=== PATIENT | male | born 1970 | race Caucasian/White ===

== ENCOUNTER 2023-07-07 00:44 | Day surgery (SDC) | payer OTHER, SELFPAY ==
[2023-06-29 11:00] VITALS: BMI 34.9
[2023-07-07 07:28] VITALS: BP 116/91; PULSE 76; RESP 18; TEMP 36.3; O2SAT 94; BMI 35.4
[2023-07-07] MEDS: LACTATED RINGERS 1,000 ML 150 ML IV CONT (07:31)
--- NOTE | 2023-07-07 08:05 | PM.HPGS ---
History of Present Illness History of Present Illness Consent: Risks, benefits, and alternatives have been discussed and questions answered. Patient agrees to proceed with procedure. Chief complaint: neoplasm screening, dysphagia Narrative: Donnie Haney is a 52 year old male with gerd on omeprazole (also using celebrex), last EGD about 7 years ago. Also was having dysphagia but improved after got dentures. This is first screening colonoscopy. Review of Systems Review of Systems: All systems reviewed & are unremarkable except as noted in HPI and below PMFSH Past Medical History Medical History (Updated 07/07/23 @ 08:09 by Lefty Lopez MD) Bilateral impacted cerumen Colon cancer screening Family history of heart disease Family hx-malignancy Fusion of lumbosacral spine GERD (gastroesophageal reflux disease) Seborrheic dermatitis Family History Family History Mother Acute myocardial infarction Father Family history of cardiovascular disease Other Family history of malignant neoplasm of breast in first degree relative Family history of malignant neoplasm of cervix Social History Social History (Updated 06/24/23 @ 09:24 by Linda Onofre) Smoking status: Never smoker Alcohol intake: current Drinks per week: 2 Substance use: never Substance use type: does not use Living arrangements: other Meds Home Medications and Allergies Home Medications Medication Instructions Recorded Confirmed Type albuterol sulfate 90 mcg/actuation 1 puff inhalation Q4H PRN 06/24/23 07/07/23 History aerosol inhaler Shortness Of Breath celecoxib 100 mg capsule 100 mg PO BID 06/24/23 07/07/23 History escitalopram oxalate 20 mg tablet 20 mg PO DAILY #30 tabs 06/24/23 07/07/23 Rx eszopiclone 1 mg tablet 1 mg PO DAILY 06/24/23 07/07/23 History ezetimibe 10 mg tablet 10 mg PO DAILY 06/24/23 07/07/23 History omeprazole 40 mg capsule,delayed 40 mg PO DAILY 06/24/23 07/07/23 History release tirzepatide (weight loss) 2.5 2.5 mg (0.5 mL) subcut WEEKLY 4 06/30/23 07/07/23 Rx mg/0.5 mL subcutaneous pen weeks #2 mL injector (Zepbound) Allergies Allergy/AdvReac Type Severity Reaction Status Date / Time ibuprofen Allergy Unknown Unknown Verified 07/07/23 07:25 diclofenac Allergy shortness Verified 07/07/23 07:25 of breathe Vital Signs Vital Signs - 24 hr 07/07/23 07:28 Temperature 97.3 F L Pulse Rate 76 Respiratory Rate 18 Blood Pressure 116/91 H Pulse Oximetry 94 Oxygen Delivery Room Air Exam Const: General: comfortable and no acute distress HENMT: Face/Nose/Sinus: Normal nares present Eyes: General: appearance normal, both eyes and all related structures Neck: Neck: no JVD Resp: Auscultation: clear to auscultation bilaterally Cardio: Rate: regular rate Rhythm: regular rhythm GI: Inspection: non-distended GI Palp: Yes Soft to palpation Skin: General skin exam: normal color Neuro: General: gait normal Speech: normal speech Extrem: General: normal to inspection Psych: Mental Status: mental status grossly normal Assessment and Plan Assessment and plan (1) Dysphagia: Qualifiers: Dysphagia type: unspecified Qualified Code(s): R13.10 - Dysphagia, unspecified Code(s): R13.10 - Dysphagia, unspecified Status: Acute (2) GERD (gastroesophageal reflux disease): Code(s): K21.9 - Gastro-esophageal reflux disease without esophagitis Status: Acute Assessment and Plan: egd with bx on ppi (3) Colon cancer screening: Code(s): Z12.11 - Encounter for screening for malignant neoplasm of colon Status: Acute Assessment and Plan: colonoscopy
--- NOTE | 2023-07-07 08:07 | WPDANESEPPF ---
Anes - Initial Pre Proc Eval Procedure: Operation Date: 07/07/23 08:30 Proposed Procedures p Esophagogastroduodenoscopy&Screen Colon - Lefty Lopez MD Date/Time: 07/07/23 08:07 Surgeon: Lefty Lopez MD Pre Op Diagnosis: neoplasm screening, dysphagia Patient Data Age: 52 Gender: M Height: 1.88 m Weight: 125 kg Last Vital Signs Temp 97.3 F L 07/07/23 07:28 Pulse 76 07/07/23 07:28 Resp 18 07/07/23 07:28 BP 116/91 H 07/07/23 07:28 Pulse Ox 94 07/07/23 07:28 O2 Del Method Room Air 07/07/23 07:28 Allergies Allergy/AdvReac Type Severity Reaction Status Date / Time ibuprofen Allergy Unknown Unknown Verified 07/07/23 07:25 diclofenac Allergy shortness Verified 07/07/23 07:25 of breathe Home Medications Medication Instructions Recorded Confirmed Type albuterol sulfate 90 mcg/actuation 1 puff inhalation Q4H PRN 06/24/23 07/07/23 History aerosol inhaler Shortness Of Breath celecoxib 100 mg capsule 100 mg PO BID 06/24/23 07/07/23 History escitalopram oxalate 20 mg tablet 20 mg PO DAILY #30 tabs 06/24/23 07/07/23 Rx eszopiclone 1 mg tablet 1 mg PO DAILY 06/24/23 07/07/23 History ezetimibe 10 mg tablet 10 mg PO DAILY 06/24/23 07/07/23 History omeprazole 40 mg capsule,delayed 40 mg PO DAILY 06/24/23 07/07/23 History release tirzepatide (weight loss) 2.5 2.5 mg (0.5 mL) subcut WEEKLY 4 06/30/23 07/07/23 Rx mg/0.5 mL subcutaneous pen weeks #2 mL injector (Zepbound) Patient hx anesthesia problems: none Family hx anesthesia problems: none Results Review: All pre-operative results and documents have been reviewed as part of the pre-operative evaluation. [facility] Past Medical History Medical History (Updated 06/30/23 @ 11:57 by Deysi Wang APRN) Bilateral impacted cerumen Family history of heart disease Family hx-malignancy Fusion of lumbosacral spine Seborrheic dermatitis Family History Family History Mother Acute myocardial infarction Father Family history of cardiovascular disease Other Family history of malignant neoplasm of breast in first degree relative Family history of malignant neoplasm of cervix Social History Social History (Updated 06/24/23 @ 09:24 by Linda Onofre) Smoking status: Never smoker Alcohol intake: current Drinks per week: 2 Substance use: never Substance use type: does not use Living arrangements: other Anes - Eval Final PreProcedure Day of Procedure 07/07/23 08:07 Patient weight: obese Heart: regular rate and rhythm Lungs: clear to auscultation Airway: Mallampati scale class III Neurological: alert and oriented Last oral intake: >/= 8 hours ASA classification: III Emergent: no Anesthetic plan: proceed Anesthesia type and monitoring: general GIVS and standard monitoring Results Review: All pre-operative results and documents have been reviewed as part of the pre-operative evaluation. Informed Consent: The patient's anesthetic plan and its attendant risks and benefits were discussed with the patient/family/POA. Questions were solicited and answers provided to the satisfaction of the patient/family/POA.
--- NOTE | 2023-07-07 08:15 | SUR.OPER ---
EGD: COLON: Start 824
[2023-07-07 08:37] VITALS: BP 113/74; PULSE 72; RESP 16; O2SAT 94
[2023-07-07 08:47] VITALS: BP 114/76; PULSE 77; RESP 16; O2SAT 94
[2023-07-07 08:57] VITALS: BP 113/78; PULSE 65; RESP 18; O2SAT 96
== END 2023-07-07 09:06 | disposition home or self-care (01) ==
PROVIDERS: PCP Nurse Practitioner Family; Visit Provider Internal Medicine Gastroenterology
PROC: 0DJ08ZZ Inspection of Upper Intestinal Tract, Via Natural or Artificial Opening Endoscopic (ICD-10-PCS; CPT 43235; principal; 2023-07-07 08:30)
DX: Z12.11 Encounter for screening for malignant neoplasm of colon (principal); D12.2 Benign neoplasm of ascending colon; D12.3 Benign neoplasm of transverse colon; D12.5 Benign neoplasm of sigmoid colon; K29.50 Unspecified chronic gastritis without bleeding; B96.81 Helicobacter pylori [H. pylori] as the cause of diseases classified elsewhere; K64.8 Other hemorrhoids; K57.30 Diverticulosis of large intestine without perforation or abscess without bleeding; K44.9 Diaphragmatic hernia without obstruction or gangrene; K21.9 Gastro-esophageal reflux disease without esophagitis; E66.9 Obesity, unspecified; Z68.35 Body mass index [BMI] 35.0-35.9, adult; Z79.51 Long term (current) use of inhaled steroids; Z79.85 Long-term (current) use of injectable non-insulin antidiabetic drugs; Z98.890 Other specified postprocedural states; Z98.1 Arthrodesis status; Z80.3 Family history of malignant neoplasm of breast; Z80.49 Family history of malignant neoplasm of other genital organs; Z82.49 Family history of ischemic heart disease and other diseases of the circulatory system
CPT/HCPCS: 43239; 45380; 45385; 88305; 88342; J2001; J2704; J3010; J7120

== ENCOUNTER 2023-09-28 15:23 | Outpatient (CLI) | payer OTHER, SELFPAY ==
--- NOTE | ~2023-09-28 | CT_ITS ---
Non-contrast CT scan of the Abdomen and Pelvis Clinical indication: GERD Technique: 2.5 mm axial scans were obtained through the abdomen and pelvis without intravenous or or al contrast. Dose reduction technique was used on this scan by utilizing automated exposure control a nd iterative reconstruction technique. The dose-length product (DLP) was 1154.50 mGy-cm. Findings: Images through the lung bases reveal no abnormalities. There is no evidence of renal or ureteral calculi. The kidneys and the ureters are nondilated. Left hepatic lobe cyst noted inferiorly. The spleen, pancreas, gallbladder, and adrenals appear sheldon l. There is no aortic aneurysm. There is no evidence of bowel obstruction. Images through the pelvis were performed. There is no evidence of ascites or lymphadenopathy. Urinary bladder unremarkable. No pelvic mass seen. Prostate gland mildly enlarged. Small fat-containing righ t inguinal hernia noted. Impression: No acute abnormality. Small fat-containing right inguinal hernia. Markedly enlarged prostate gland. Reviewed, dictated and finalized at [facility]. Impression: No acute abnormality. Small fat-containing right inguinal hernia. Markedly enlarged prostate gland.
== END 2023-09-28 15:24 ==
LOC: MICIMG 15:26
PROVIDERS: PCP Nurse Practitioner Family; Visit Provider Surgery
DX: K21.9 Gastro-esophageal reflux disease without esophagitis (principal); K40.90 Unilateral inguinal hernia, without obstruction or gangrene, not specified as recurrent; N40.0 Benign prostatic hyperplasia without lower urinary tract symptoms
CPT/HCPCS: 74176

== ENCOUNTER 2023-10-05 09:01 | Outpatient (CLI) | payer OTHER, SELFPAY ==
--- NOTE | ~2023-10-05 | XR_ITS ---
EXAMINATION: XR UGI w barium swallow DATE: 10/05/2023 09:37 INDICATION: Gastroesophageal reflux disease without esophagitis. TECHNIQUE: The patient drank thick barium, gas-producing crystals, and thin barium. Fluoroscopy of th e esophagus, stomach, and proximal small bowel was performed. Fluoroscopy exposure time was 0.5 minut es. The total number of images was 196. Total dose-area product was 2.935 Gy-cm^2. COMPARISON: CT abdomen and pelvis 09/28/23 FINDINGS: There is no mass or stricture of the esophagus. Esophageal motility is normal. There is a s mall sliding hiatal hernia. The stomach and proximal small bowel show normal folding patterns. IMPRESSION: 1. Small sliding hiatal hernia. Reviewed, dictated and finalized at location A.
== END 2023-10-05 09:02 | disposition home or self-care (01) ==
LOC: ANHIMG 09:04
PROVIDERS: PCP Nurse Practitioner Family; Visit Provider Surgery
DX: K21.9 Gastro-esophageal reflux disease without esophagitis (principal); R13.10 Dysphagia, unspecified; K44.9 Diaphragmatic hernia without obstruction or gangrene
CPT/HCPCS: 74240

== ENCOUNTER 2023-11-10 15:52 | Outpatient (CLI) | payer OTHER, SELFPAY ==
--- NOTE | ~2023-11-10 | XR_ITS ---
Clinical Indication: Gastroesophageal reflux disease PA and lateral views of the chest: Comparison: None Findings: The lungs are clear, without evidence of focal consolidation or pleural effusion. Cardiome diastinal silhouette is within normal limits. Bones and soft tissues are unremarkable. Impression: Normal chest. Reviewed, dictated and finalized at location . Impression: Normal chest.
--- NOTE | 2023-11-10 15:57 | ECG_ITS ---
Test Date: 2023-11-10 15:02:31 Measurements Intervals [place] Rate: 69 P: 36 NC: 164 QRS: 29 QRSD: 114 T: 32 QT: 377 QTc: 404 Interpretive Statements SINUS RHYTHM INTRAVENTRICULAR CONDUCTION DELAY BASELINE ARTIFACT- II, III BORDERLINE ECG No previous ECG available for comparison Electronically Signed On 11-10-2023 16:07:37 CDT by Anand Norman D.O.
[2023-11-10 16:25] LABS: Basophils Absolute Auto 0.1 K/mm3 (0.0-0.1); Basophils Percent Auto 1.3 % (0.2-1.2); Eosinophils Absolute Auto 0.8 K/mm3 (0-0.3); Eosinophils Percent Auto 11.5 % (0-4.4); Hematocrit 46.6 % (42.0-52.0); Hemoglobin 14.6 g/dL (14.0-18.0); Immature Granulocyte Absolute 0.01 K/mm3 (0.00-0.031); Immature Granulocyte Percent A 0.1 % (0-0.5); Lymphocytes Absolute Auto 2.23 K/mm3 (0.9-3.2); Lymphocytes Percent Auto 31.2 % (18.3-44.2); Mean Corpuscular HGB Conc 31.3 g/dl (32-36); Mean Corpuscular Hemoglobin 26.7 pg (26-34); Mean Corpuscular Volume 85.2 fl (80-100); Mean Platelet Volume 11.1 fl (7.4-10.4); Monocytes Absolute Auto 0.7 K/mm3 (0.1-0.6); Monocytes Percent Auto 10.3 % (2.6-8.5); Neutrophils Absolute Auto 3.3 K/mm3 (1.3-6.7); Neutrophils Percent Auto 45.6 % (45.5-73.1); Platelet Count Result 326 k/mm3 (150-375); Red Blood Count 5.47 M/mm3 (4.6-6.20); Red Cell Distribution Width 14.1 % (11.5-14.5); White Blood Count 7.2 K/mm3 (4.5-10.0)
[2023-11-10 16:35] LABS: Anion Gap 9 mmol/L (4-12); Blood Urea Nitrogen 15 mg/dL (9-20); Calcium 9.7 mg/dL (8.4-10.2); Carbon Dioxide 26 mmol/L (22-30); Chloride 95 mmol/L (98-107); Estimated Glomerular Filt Rate > 60; Glucose 87 mg/dL (65-110); Potassium 4.2 mmol/L (3.4-5.0); Sodium 130 mmol/L (137-145)
== END 2023-11-10 15:53 | disposition home or self-care (01) ==
LOC: ANHCARD 15:53
PROVIDERS: PCP Nurse Practitioner Family; Visit Provider Surgery
DX: K21.9 Gastro-esophageal reflux disease without esophagitis (principal); K44.9 Diaphragmatic hernia without obstruction or gangrene
CPT/HCPCS: 36415; 71046; 80048; 85025; 86850; 86900; 86901; 93005

== ENCOUNTER 2024-03-21 15:31 | Outpatient (CLI) | payer OTHER, SELFPAY ==
--- NOTE | ~2024-03-21 | XR_ITS ---
EXAM: XR humerus RT DATE: 03/21/2024 15:45 HISTORY: rt shoulder/humerus pain, lam when side sleeping . COMPARISON: None available. FINDINGS: Normal mineralization. No fracture or dislocation. No lytic or blastic lesion. Joint space s and physes are maintained. No erosion or periosteal change. Soft tissues within normal limits. IMPRESSION: No acute osseous finding in the right humerus. Reviewed, dictated and finalized at location K. CAL ASSISTANT INTERNAL MEDICINE
--- NOTE | ~2024-03-21 | XR_ITS ---
HISTORY: rt shoulder/humerus pain x 1 month, espec when side sleeping COMPARISON: None TECHNIQUE: 3 views of the right shoulder were performed FINDINGS: No acute fracture. The glenohumeral and acromioclavicular joint space is maintained The visualized portion of the adjacent right lung is clear. The humeral head is well seated within the glenoid fossa. IMPRESSION: No acute fracture or anterior dislocation. Reviewed, dictated and finalized at location A. 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
--- OUTSIDE RECORDS SUMMARY | 2024-03-21 16:16 | XMS_ITS | Data Portability ---
Author Organization [place] - [facility], [employer] Address [address] [place] [address] Care Team Providers Care Senior Bioinformatics Specialist Name Role Phone BENEDICT MELLO Office Nurse Assessment Encounter Date Assessment Date Assessment LastModified by Organization Details LastModified Time 04/16/2022 04/16/2022 Medication Changes Zpak as directed Signs and symptoms of when to seek further care reviewed with patient/caregive r/family/facilit y staff. Patient to follow up with primary care provider or return to clinic for any worsening signs and symptoms. Always present to ER or Urgent Care with any progression of/alarming symptoms, significant changes in symptoms or any concerning or urgent matters. Patient/caregive r/family/facilit y staff verbalized agreement and understanding of treatment plan. F/U as directed, sooner if needed My total encounter time was 30 minutes which was spent in the activities documented in the note. This includes time spent prior to the visit, performing a medically appropriate examination with evaluation, and after the visit in direct care of the patient (history and exam; ordering prescriptions/la bs/imaging/home health/therapy/s pecialists; communicating results to patient and/or other relative individuals; counseling/educa ting patient; documenting clinical information in patient? s chart; coordination of care for the patient). This time does not include time spent in any separately reportable services. Not available 04/16/2022 13:08:59 05/19/2022 05/19/2022 Medication Changes Barium swallow study to be done at [facility] in [place]. Contacted [facility] who states order to be sent to Central Sched[facility] and they will call patient to schedule. Signs and symptoms of when to seek further care reviewed with patient/caregive r/family/facilit y staff. Patient to follow up with primary care provider or return to clinic for any worsening signs and symptoms. Always present to ER or Urgent Care with any progression of/alarming symptoms, significant changes in symptoms or any concerning or urgent matters. Patient/caregive r/family/facilit y staff verbalized agreement and understanding of treatment plan. F/U as directed, sooner if needed My total encounter time was 30 minutes which was spent in the activities documented in the note. This includes time spent prior to the visit, performing a medically appropriate examination with evaluation, and after the visit in direct care of the patient (history and exam; ordering prescriptions/la bs/imaging/home health/therapy/s pecialists; communicating results to patient and/or other relative individuals; counseling/educa ting patient; documenting clinical information in patient? s chart; coordination of care for the patient). This time does not include time spent in any separately reportable services. [email or web address] Not available 05/19/2022 18:25:44 08/13/2022 08/13/2022 Medication Changes Dexamethasone 6 mg x 1 IM given at visit Dexamethasone 6 mg orally qD x 5 days labs to eval levels. Signs and symptoms of when to seek further care reviewed with patient/caregive r/family/facilit y staff. Patient to follow up with primary care provider or return to clinic for any worsening signs and symptoms. Always present to ER or Urgent Care with any progression of/alarming symptoms, significant changes in symptoms or any concerning or urgent matters. Patient/caregive r/family/facilit y staff verbalized agreement and understanding of treatment plan. F/U 12 weeks, sooner if needed My total encounter time was 30 minutes which was spent in the activities documented in the note. This includes time spent prior to the visit, performing a medically appropriate examination with evaluation, and after the visit in direct care of the patient (history and exam; ordering prescriptions/la bs/imaging/home health/therapy/s pecialists; communicating results to patient and/or other relative individuals; counseling/educa ting patient; documenting clinical information in patient? s chart; coordination of care for the patient). This time does not include time spent in any separately reportable services. [email or web address] Not available 08/13/2022 14:26:06 12/01/2022 12/01/2022 Medication Changes labs to eval levels Patient to return to office to have labs done Signs and symptoms of when to seek further care reviewed with patient/caregive r/family/facilit y staff. Patient to follow up with primary care provider or return to clinic for any worsening signs and symptoms. Always present to ER or Urgent Care with any progression of/alarming symptoms, significant changes in symptoms or any concerning or urgent matters. Patient/caregive r/family/facilit y staff verbalized agreement and understanding of treatment plan. F/U 12 weeks, sooner if needed My total encounter time was 30 minutes which was spent in the activities documented in the note. This includes time spent prior to the visit, performing a medically appropriate examination with evaluation, and after the visit in direct care of the patient (history and exam; ordering prescriptions/la bs/imaging/home health/therapy/s pecialists; communicating results to patient and/or other relative individuals; counseling/educa ting patient; documenting clinical information in patient? s chart; coordination of care for the patient). This time does not include time spent in any separately reportable services. [email or web address] Not available 12/01/2022 09:21:38 03/31/2023 03/31/2023 Medication Changes labs to eval levels Signs and symptoms of when to seek further care reviewed with patient/caregive r/family/facilit y staff. Patient to follow up with primary care provider or return to clinic for any worsening signs and symptoms. Always present to ER or Urgent Care with any progression of/alarming symptoms, significant changes in symptoms or any concerning or urgent matters. Patient/caregive r/family/facilit y staff verbalized agreement and understanding of treatment plan. F/U 6 months, sooner if needed My total encounter time was 45 minutes which was spent in the activities documented in the note. This includes time spent prior to the visit, performing a medically appropriate examination with evaluation, and after the visit in direct care of the patient (history and exam; ordering prescriptions/la bs/imaging/home health/therapy/s pecialists; communicating results to patient and/or other relative individuals; counseling/educa ting patient; documenting clinical information in patient? s chart; coordination of care for the patient). This time does not include time spent in any separately reportable services. Not available 03/31/2023 21:15:56 Plan of Treatment Reminders Order Date Submit Date Provider Last Modified By Organization Details Last Modified Time Details Appointments None recorded. Lab lipid panel, serum 2022 023 [facility] [place] [facility], [address], [place], [address], 07:05:37 CBC 2022 023 [facility] [place] [facility], [address], [place], [address], 07:05:38 CMP, serum or plasma 2022 023 [facility] [place] [facility], [address], [place], [address], 07:05:38 lipid panel, serum 2022 023 [email or web address] [facility] [place] [facility], [address], [place], [address], 20:36:55 CBC 2022 023 [facility] [place] [facility], [address], [place], [address], 13:25:54 CMP, serum or plasma 2022 023 [facility] [place] [facility], [address], [place], [address], 3 20:36:55 testosteron e, free + total, serum 2023 024 [facility] [place] [facility], [address], [place], [address], 4 17:31:16 PSA, serum or plasma 2023 024 [facility] [place] [facility], [address] [place], [address], 4 12:08:32 lipid panel, serum 2023 024 0 [facility] [place] [facility], [address] [place], [address], 4 12:11:10 CMP, serum or plasma 2023 024 [email or web address] 0 [facility] [place] [facility], [address] [place], [address], 4 12:11:12 CBC 2023 024 [email or web address] 0 [facility], [address] [place], [address], 4 12:31:49 TSH, serum or plasma 2023 024 [facility] [place] [facility], [address] [place], [address], 4 12:08:33 vitamin B12 + folate, serum or blood 2023 024 [facility] [place] [facility], [address] [place], [address], 4 12:08:33 iron, serum 2023 024 [email or web address] 0 [facility] [place] [facility], [address] [place], [address], 4 12:11:11 Referral weight management referral 2022 023 [email or web address] Not available 3 16:18:52 Procedures None recorded. Surgeries None recorded. Imaging barium swallow study 2022 023 [facility] ([facility] Scheduling, [address] [place], [address], 3 13:48:08 Medication Orders Zithromax Z-Rian 250 mg tablet 2022 023 [email or web address] [facility] [id number] [facility], [facility], [place], [address], 3 06:51:01 bupropion HCl 75 mg tablet 2022 023 [place] [address], [place], [address], 4 14:05:24 celecoxib 100 mg capsule [address], [place], [address], 4 12:53:20 ezetimibe 10 mg tablet 2022 023 [place] [address], [place], [address], 4 14:05:46 eszopiclone 1 mg tablet 2022 023 [place] [address], [place], [address], 4 14:05:40 escitalopra m 10 mg tablet 2022 023 [place] [address], [place], [address], 4 14:05:34 dexamethaso ne 6 mg tablet 2022 023 [place] [address], [place], [address], 3 09:55:33 bupropion HCl 75 mg tablet [address], [facility] [address], [place], [address], 4 14:05:24 celecoxib 100 mg capsule 2022 023 [place] [address], [place], [address], 4 12:53:20 eszopiclone 1 mg tablet [address], [facility] [address], [place], [address], 4 14:05:40 ezetimibe 10 mg tablet [address], [facility] [address], [place], [address], 4 14:05:46 escitalopra m 10 mg tablet [address], [facility] [address], [place], [address], 4 14:05:34 bupropion HCl 75 mg tablet 2023 024 [facility], [address], [place], [address], 4 09:09:34 celecoxib 100 mg capsule [address], [address], [place], [address], 4 12:53:20 omeprazole 40 mg capsule,del ayed release 2023 024 [place] [address], [place], [address], 4 09:09:56 ezetimibe 10 mg tablet 2023 024 [place] [address], [place], [address], 4 09:09:54 eszopiclone 1 mg tablet 2023 024 [place] [address], [place], [address], 4 09:09:52 escitalopra m 10 mg tablet 2023 024 [place] [address], [place], [address], 4 09:09:31 Patient TargetsNo targets recorded. Patient Instructions Encounter Date Encounter Id Patient Instructions Last Modified By Organization Details Last Modified Time 04/16/2022 [id number] Acute Sinusitis: Care Instructions [email or web address] Not available 04/16/2022 13:09:41 weight managemen t education [email or web address] Not available 04/16/2022 13:04:51 Reason for Referral Weight Management Referral f or Body mass index 30+ - obesity Referring Physician: Aria Hauser, Internal Medicine, Encounter Date: 04/16/2022 Results Created Date Observation Date Name Description Value Unit Range Abnormal Flag Note LastModifiedBy Organization Detail LastModifiedTime 03/25/1903/26/2022 LIPID PANEL , [place] cholesterol, total 248 mg/dL <200 high Not Available [facility] [address] [place], [address], 03/26/2022 13:30:37 03/25/19 23 03/26/2022 LIPID PANEL , [place] HDL cholesterol 52 mg/dL > or = 40 normal Not Available [facility] [address] [place], [address], 03/26/2022 13:30:37 03/25/19 23 03/26/2022 LIPID PANEL , [place] triglyceride s 228 mg/dL <150 high If a non-f astin g speci men was colle cted, consi darío repea t trigl yceri de testi ng on a fasti ng speci men if clini pito indic ated. [place] et al. J. of Clin. Lipid ol. 2015; 9:129 -169. Not Available [facility] [address], [place], [address], 03/26/2022 13:30:37 03/25/19 23 03/26/2022 LIPID PANEL , [place] LDL-choleste rol 157 mg/dL _(shelia c) high Refer ence range : <100 Jillian able range <100 mg/dL for prima ry preve ntion ; <70 mg/dL for patie nts with CHD or diabe tic patie nts with > or = 2 CHD risk facto rs. LDL-C is now calcu lated using the Wilda n-Hop kins rolandu cheri n, which is a valid ated novel kartik campos r accur acy than the Fried lori equat ion in the estim ation of LDL-C . Wilda baum SS et al. DAVID. 2013; 310(1 9): 2061- 2068 (http ://ed ucati on.Qu William fish tics. com/f aq/FA Q164) Not Available [facility] [address] [place], [address], 03/26/2022 13:30:37 03/25/19 23 03/26/2022 LIPID PANEL , [place] chol/HDLC ratio 4.8 (calc ) <5.0 normal Not Available [facility] [address] [place], [address], 03/26/2022 13:30:37 03/25/19 23 03/26/2022 LIPID PANEL , [place] non HDL cholesterol 196 mg/dL _(shelia c) <130 high For patie nts with diabe adrián plus 1 major ASCVD risk facto r, treat ing to a non-H DL-C goal of <100 mg/dL (LDL- C of <70 mg/dL ) is consi bald a thera peuti c optio n. Not Available [place] [address] [place], [address], 03/26/2022 13:30:37 03/25/19 23 03/26/2022 COMPR EHENS RAUL METAB OLIC PANEL glucose 91 mg/dL 65-99 normal Fasti ng refer ence inter kyara Not Available [address] [place], [address], 03/26/2022 13:30:38 03/25/19 23 03/26/2022 COMPR EHENS RAUL METAB OLIC PANEL urea nitrogen (BUN) 20 mg/dL 7-25 normal Not Available [facility] [place] [address] [place], [address], 03/26/2022 13:30:38 03/25/19 23 03/26/2022 COMPR EHENS RAUL METAB OLIC PANEL creatinine 1.16 mg/dL 0.70-1 .30 normal Not Available [address], [address], 03/26/2022 13:30:38 03/25/19 23 03/26/2022 COMPR EHENS RAUL METAB OLIC PANEL eGFR 75 mL/mi n/1.7 3m2 > or = 60 normal The eGFR is based on the CKD-E PI 2020 cecilio gilbert. To calcu late the new eGFR from a previ ous Creat inine or Cysta lynsey C resul t, go to https ://thad georges.hernandez avilez/yemi marroquin s/ kdoqi /gfr% 5Fcal culat or Not Available [address] [place], [address], 03/26/2022 13:30:38 03/25/19 23 03/26/2022 COMPR EHENS RAUL METAB OLIC PANEL BUN/creatini ne ratio NOT APPLIC ABLE (calc ) 6-22 Not Available [address], [address], 03/26/2022 13:30:38 03/25/19 23 03/26/2022 COMPR EHENS RAUL METAB OLIC PANEL sodium 140 mmol/ L 135-14 6 normal Not Available [address], [address], 03/26/2022 13:30:38 03/25/19 23 03/26/2022 COMPR EHENS RAUL METAB OLIC PANEL potassium 4.5 mmol/ L 3.5-5. 3 normal Not Available [address], [address], 03/26/2022 13:30:38 03/25/19 23 03/26/2022 COMPR EHENS RAUL METAB OLIC PANEL chloride 105 mmol/ L 98-110 normal Not Available [address], [address], 03/26/2022 13:30:38 03/25/19 23 03/26/2022 COMPR EHENS RAUL METAB OLIC PANEL carbon dioxide 27 mmol/ L 20-32 normal Not Available [address], [address], 03/26/2022 13:30:38 03/25/19 23 03/26/2022 COMPR EHENS RAUL METAB OLIC PANEL calcium 9.9 mg/dL 8.6-10 .3 normal Not Available [address], [address], 03/26/2022 13:30:38 03/25/19 23 03/26/2022 COMPR EHENS RAUL METAB OLIC PANEL protein, total 7.0 g/dL 6.1-8. 1 normal Not Available [address], [address], 03/26/2022 13:30:38 03/25/19 23 03/26/2022 COMPR EHENS RAUL METAB OLIC PANEL albumin 4.6 g/dL 3.6-5. 1 normal Not Available [address], [address], 03/26/2022 13:30:38 03/25/19 23 03/26/2022 COMPR EHENS RAUL METAB OLIC PANEL globulin 2.4 g/dL_ (calc ) 1.9-3. 7 normal Not Available [address], [address], 03/26/2022 13:30:38 03/25/19 23 03/26/2022 COMPR EHENS RAUL METAB OLIC PANEL albumin/glob ulin ratio 1.9 (calc ) 1.0-2. 5 normal Not Available [address], [address], 03/26/2022 13:30:38 03/25/19 23 03/26/2022 COMPR EHENS RAUL METAB OLIC PANEL bilirubin, total 0.4 mg/dL 0.2-1. 2 normal Not Available [address], [address], 03/26/2022 13:30:38 03/25/19 23 03/26/2022 COMPR EHENS RAUL METAB OLIC PANEL alkaline phosphatase 51 U/L 35-144 normal Not Available [facility] [employer] [address], [address], 03/26/2022 13:30:38 03/25/19 23 03/26/2022 COMPR EHENS RAUL METAB OLIC PANEL AST 16 U/L 10-35 normal Not Available [address], [address], 03/26/2022 13:30:38 03/25/19 23 03/26/2022 COMPR EHENS RAUL METAB OLIC PANEL ALT 19 U/L 9-46 normal Not Available [address], [address], 03/26/2022 13:30:38 03/25/19 23 03/26/2022 CBC (H/H, RBC, INDIC ES, WBC, PLT) white blood cell count 10.1 thous and/u L 3.8-10 .8 normal Not Available [address], [address], 03/26/2022 08:38:31 03/25/19 23 03/26/2022 CBC (H/H, RBC, INDIC ES, WBC, PLT) red blood cell count 5.21 denise on/uL 4.20-5 .80 normal Not Available [address], [address], 03/26/2022 08:38:31 03/25/19 23 03/26/2022 CBC (H/H, RBC, INDIC ES, WBC, PLT) hemoglobin 14.7 g/dL 13.2-1 7.1 normal Not Available [address], [address], 03/26/2022 08:38:31 03/25/19 23 03/26/2022 CBC (H/H, RBC, INDIC ES, WBC, PLT) hematocrit 45.4 % 38.5-5 0.0 normal Not Available [address], [address], 03/26/2022 08:38:31 03/25/19 23 03/26/2022 CBC (H/H, RBC, INDIC ES, WBC, PLT) MCV 87.1 fL 80.0-1 00.0 normal Not Available [address], [address], 03/26/2022 08:38:31 03/25/1903/26/2022 CBC (H/H, RBC, INDIC ES, WBC, PLT) MCH 28.2 pg 27.0-3 3.0 normal Not Available [address], [address], 03/26/2022 08:38:31 03/25/1903/26/2022 CBC (H/H, RBC, INDIC ES, WBC, PLT) MCHC 32.4 g/dL 32.0-3 6.0 normal Not Available [address], [address], 03/26/2022 08:38:31 03/25/1903/26/2022 CBC (H/H, RBC, INDIC ES, WBC, PLT) RDW 13.5 % 11.0-1 5.0 normal Not Available [address], [address], 03/26/2022 08:38:31 03/25/1903/26/2022 CBC (H/H, RBC, INDIC ES, WBC, PLT) platelet count 317 thous and/u L 140-40 0 normal Not Available [address], [address], 03/26/2022 08:38:31 03/25/19 23 03/26/2022 CBC (H/H, RBC, INDIC ES, WBC, PLT) MPV 11.8 fL 7.5-12 .5 normal Not Available [facility] [address], [address], 03/26/2022 08:38:31 08/14/19 23 08/14/2022 LIPID PANEL , [place] cholesterol, total 235 mg/dL <200 high Not Available [address], [address], 08/14/2022 08:41:07 08/14/19 23 08/14/2022 LIPID PANEL , [place] HDL cholesterol 72 mg/dL > or = [address] [facility] [address] [place] [address], [address], 08/14/2022 08:41:07 08/14/19 23 08/14/2022 LIPID PANEL , [place] triglyceride s 172 mg/dL <150 high Not Available [address], [address], 08/14/2022 08:41:07 08/14/1908/14/2022 LIPID PANEL , [place] LDL-choleste rol 132 mg/dL _(shelia c) high Refer ence range : <100 Jillian able range <100 mg/dL for prima ry preve ntion ; <70 mg/dL for patie nts with CHD or diabe tic patie nts with > or = 2 CHD risk facto rs. LDL-C is now calcu lated using the Wilda n-Hop kins calcu cheri n, which is a valid ated novel kartik acosta accur acy than the Fried lori equat ion in the estim ation of LDL-C . Wilda baum SS et al. DAVID. 2013; 310(1 9): 2061- 2068 (http ://ed ucati on.Erica Thomas [employer] Network[employer]. com/f aq/FA Q164) Not Available [address], [address], 08/14/2022 08:41:07 08/14/19 23 08/14/2022 LIPID PANEL , [place] chol/HDLC ratio 3.3 (calc ) <5.[address] [facility] [address] [place] [address], [address], 08/14/2022 08:41:07 08/14/19 23 08/14/2022 LIPID PANEL , [place] non HDL cholesterol 163 mg/dL _(shelia c) <130 high For patie nts with diabe adrián plus 1 major ASCVD risk facto r, treat ing to a non-H DL-C goal of <100 mg/dL (LDL- C of <70 mg/dL ) is consi dered a thera peuti c optio n. Not Available [place] [address] [place], [address], 08/14/2022 08:41:07 08/14/1908/14/2022 COMPR EHENS RAUL METAB OLIC PANEL glucose 118 mg/dL 65-99 high Fasti ng refer ence inter kyara For someo ne witho ut known diabe adrián, a gluco se value betwe en 100 and 125 mg/dL is consi stent with predi abete s and shoul d be confi rmed with a follo w-up test. Not Available [place] [address] [place], [address], 08/14/2022 08:41:08 08/14/19 23 08/14/2022 COMPR EHENS RAUL METAB OLIC PANEL urea nitrogen (BUN) 22 mg/dL 7-25 normal Not Available [address], [address], 08/14/2022 08:41:08 08/14/1908/14/2022 COMPR EHENS RAUL METAB OLIC PANEL creatinine 1.03 mg/dL 0.70-1 .30 normal Not Available [facility] [address] [address] [place], [address], 08/14/2022 08:41:08 08/14/1908/14/2022 COMPR EHENS RAUL METAB OLIC PANEL eGFR 87 mL/mi n/1.7 3m2 > or = 60 normal The eGFR is based on the CKD-E PI 2020 equat ion. To calcu late the new eGFR from a previ ous Creat inine or Cysta tin C resul t, go to https ://thad georges.hernandez avilez/yemi marroquin s/ kdoqi /gfr% 5Fcal culat or Not Available [address] [place], [address], 08/14/2022 08:41:08 08/14/1908/14/2022 COMPR EHENS RAUL METAB OLIC PANEL BUN/creatini ne ratio NOT APPLIC ABLE (calc ) 6-22 Not Available [address], [address], 08/14/2022 08:41:08 08/14/1908/14/2022 COMPR EHENS RAUL METAB OLIC PANEL sodium 140 mmol/ L 135-14 6 normal Not Available [address], [address], 08/14/2022 08:41:08 08/14/1908/14/2022 COMPR EHENS RAUL METAB OLIC PANEL potassium 4.6 mmol/ L 3.5-5. 3 normal Not Available [address], [address], 08/14/2022 08:41:08 08/14/19 23 08/14/2022 COMPR EHENS RAUL METAB OLIC PANEL chloride 107 mmol/ L 98-110 normal Not Available [address], [address], 08/14/2022 08:41:08 08/14/1908/14/2022 COMPR EHENS RAUL METAB OLIC PANEL carbon dioxide 25 mmol/ L 20-32 normal Not Available [address], [address], 08/14/2022 08:41:08 08/14/1908/14/2022 COMPR EHENS RAUL METAB OLIC PANEL calcium 9.4 mg/dL 8.6-10 .3 normal Not Available [address], [address], 08/14/2022 08:41:08 08/14/1908/14/2022 COMPR EHENS RAUL METAB OLIC PANEL protein, total 6.4 g/dL 6.1-8. 1 normal Not Available [address], [address], 08/14/2022 08:41:08 08/14/1908/14/2022 COMPR EHENS RAUL METAB OLIC PANEL albumin 4.2 g/dL 3.6-5. 1 normal Not Available [address], [address], 08/14/2022 08:41:08 08/14/1908/14/2022 COMPR EHENS RAUL METAB OLIC PANEL globulin 2.2 g/dL_ (calc ) 1.9-3. 7 normal Not Available [address], [address], 08/14/2022 08:41:08 08/14/19 23 08/14/2022 COMPR EHENS RAUL METAB OLIC PANEL albumin/glob ulin ratio 1.9 (calc ) 1.0-2. 5 normal Not Available [address], [address], 08/14/2022 08:41:08 08/14/1908/14/2022 COMPR EHENS RAUL METAB OLIC PANEL bilirubin, total 0.4 mg/dL 0.2-1. 2 normal Not Available [address], [address], 08/14/2022 08:41:08 08/14/1908/14/2022 COMPR EHENS RAUL METAB OLIC PANEL alkaline phosphatase 45 U/L 35-144 normal Not Available [address], [address], 08/14/2022 08:41:08 08/14/1908/14/2022 COMPR EHENS RAUL METAB OLIC PANEL AST 13 U/L 10-35 normal Not Available [address], [address], 08/14/2022 08:41:08 08/14/1908/14/2022 COMPR EHENS RAUL METAB OLIC PANEL ALT 20 U/L 9-46 normal Not Available [address], [address], 08/14/2022 08:41:08 08/14/1908/14/2022 CBC (H/H, RBC, INDIC ES, WBC, PLT) white blood cell count 7.3 thous and/u L 3.8-10 .8 normal Not Available [address], [address], 08/14/2022 07:05:38 08/14/1908/14/2022 CBC (H/H, RBC, INDIC ES, WBC, PLT) red blood cell count 5.23 denise on/uL 4.20-5 .80 normal Not Available [address], [address], 08/14/2022 07:05:38 08/14/1908/14/2022 CBC (H/H, RBC, INDIC ES, WBC, PLT) hemoglobin 14.8 g/dL 13.2-1 7.1 normal Not Available [address], [address], 08/14/2022 07:05:38 08/14/1908/14/2022 CBC (H/H, RBC, INDIC ES, WBC, PLT) hematocrit 46.3 % 38.5-5 0.0 normal Not Available [address], [address], 08/14/2022 07:05:38 08/14/19 23 08/14/2022 CBC (H/H, RBC, INDIC ES, WBC, PLT) MCV 88.5 fL 80.0-1 00.0 normal Not Available [address], [address], 08/14/2022 07:05:38 08/14/19 23 08/14/2022 CBC (H/H, RBC, INDIC ES, WBC, PLT) MCH 28.3 pg 27.0-3 3.0 normal Not Available [address], [address], 08/14/2022 07:05:38 08/14/1908/14/2022 CBC (H/H, RBC, INDIC ES, WBC, PLT) MCHC 32.0 g/dL 32.0-3 6.0 normal Not Available [address], [address], 08/14/2022 07:05:38 08/14/1908/14/2022 CBC (H/H, RBC, INDIC ES, WBC, PLT) RDW 13.2 % 11.0-1 5.0 normal Not Available [address], [address], 08/14/2022 07:05:38 08/14/19 23 08/14/2022 CBC (H/H, RBC, INDIC ES, WBC, PLT) platelet count 328 thous and/u L 140-40 0 normal Not Available [address], [address], 08/14/2022 07:05:38 08/14/1908/14/2022 CBC (H/H, RBC, INDIC ES, WBC, PLT) MPV 10.6 fL 7.5-12 .5 normal Not Available [address], [address], 08/14/2022 07:05:38 12/04/19 23 12/04/2022 CBC (H/H, RBC, INDIC ES, WBC, PLT) white blood cell count 5.9 thous and/u L 3.8-10 .8 normal Not Available [address], [address], 12/04/2022 13:25:54 12/04/1912/04/2022 CBC (H/H, RBC, INDIC ES, WBC, PLT) red blood cell count 4.91 denise on/uL 4.20-5 .80 normal Not Available [address], [address], 12/04/2022 13:25:54 12/04/1912/04/2022 CBC (H/H, RBC, INDIC ES, WBC, PLT) hemoglobin 14.2 g/dL 13.2-1 7.1 normal Not Available [address], [address], 12/04/2022 13:25:54 12/04/1912/04/2022 CBC (H/H, RBC, INDIC ES, WBC, PLT) hematocrit 43.8 % 38.5-5 0.0 normal Not Available [address], [address], 12/04/2022 13:25:54 12/04/1912/04/2022 CBC (H/H, RBC, INDIC ES, WBC, PLT) MCV 89.2 fL 80.0-1 00.0 normal Not Available [address], [address], 12/04/2022 13:25:54 12/04/1912/04/2022 CBC (H/H, RBC, INDIC ES, WBC, PLT) MCH 28.9 pg 27.0-3 3.0 normal Not Available [address], [address], 12/04/2022 13:25:54 12/04/1912/04/2022 CBC (H/H, RBC, INDIC ES, WBC, PLT) MCHC 32.4 g/dL 32.0-3 6.0 normal Not Available [address], [address], 12/04/2022 13:25:54 12/04/1912/04/2022 CBC (H/H, RBC, INDIC ES, WBC, PLT) RDW 13.5 % 11.0-1 5.0 normal Not Available [address], [address], 12/04/2022 13:25:54 12/04/1912/04/2022 CBC (H/H, RBC, INDIC ES, WBC, PLT) platelet count 267 thous and/u L 140-40 0 normal Not Available [address], [address], 12/04/2022 13:25:54 12/04/1912/04/2022 CBC (H/H, RBC, INDIC ES, WBC, PLT) MPV 11.8 fL 7.5-12 .5 normal Not Available [address], [address], 12/04/2022 13:25:54 12/04/1912/07/2022 COMPR EHENS RAUL METAB OLIC PANEL glucose 116 mg/dL 65-99 high Fasti ng refer ence inter kyara For someo ne witho ut known diabe adrián, a gluco se value betwe en 100 and 125 mg/dL is consi stent with predi abete s and shoul d be confi rmed with a follo w-up test. Not Available [address], [address], 12/07/2022 07:27:28 12/04/1912/07/2022 COMPR EHENS RAUL METAB OLIC PANEL urea nitrogen (BUN) 16 mg/dL 7-25 normal Not Available [address], [address], 12/07/2022 07:27:28 12/04/1912/07/2022 COMPR EHENS RAUL METAB OLIC PANEL creatinine 1.13 mg/dL 0.70-1 .30 normal Not Available [address] [address] [facility] [place], [address], 12/07/2022 07:27:28 12/04/1912/07/2022 COMPR EHENS RAUL METAB OLIC PANEL eGFR 77 mL/mi n/1.7 3m2 > or = 60 normal Not Available [address], [place], [address], 12/07/2022 07:27:28 12/04/1912/07/2022 COMPR EHENS RAUL METAB OLIC PANEL BUN/creatini ne ratio SEE NOTE: (calc ) 6-22 Not Repor patrice: BUN and Creat inine are withi n refer ence range . Not Available [address], [place], [address], 12/07/2022 07:27:28 12/04/1912/07/2022 COMPR EHENS RAUL METAB OLIC PANEL sodium 146 mmol/ L 135-14 6 normal Not Available [address] [address] [place], [address], 12/07/2022 07:27:28 12/04/1912/07/2022 COMPR EHENS RAUL METAB OLIC PANEL potassium 4.4 mmol/ L 3.5-5. 3 normal Not Available [address] [address] [place], [address], 12/07/2022 07:27:28 12/04/1912/07/2022 COMPR EHENS RAUL METAB OLIC PANEL chloride 107 mmol/ L 98-110 normal Not Available [address] [address] [place], [address], 12/07/2022 07:27:28 12/04/19 23 12/07/2022 COMPR EHENS RAUL METAB OLIC PANEL carbon dioxide 18 mmol/ L 20-32 low Not Available [address], [address], 12/07/2022 07:27:28 12/04/19 23 12/07/2022 COMPR EHENS RAUL METAB OLIC PANEL calcium 9.3 mg/dL 8.6-10 .3 normal Not Available [address], [address], 12/07/2022 07:27:28 12/04/1912/07/2022 COMPR EHENS RAUL METAB OLIC PANEL protein, total 6.9 g/dL 6.1-8. 1 normal Not Available [address], [address], 12/07/2022 07:27:28 12/04/1912/07/2022 COMPR EHENS RAUL METAB OLIC PANEL albumin 4.4 g/dL 3.6-5. 1 normal Not Available [address], [address], 12/07/2022 07:27:28 12/04/1912/07/2022 COMPR EHENS RAUL METAB OLIC PANEL globulin 2.5 g/dL_ (calc ) 1.9-3. 7 normal Not Available [address], [address], 12/07/2022 07:27:28 12/04/1912/07/2022 COMPR EHENS RAUL METAB OLIC PANEL albumin/glob ulin ratio 1.8 (calc ) 1.0-2. 5 normal Not Available [address], [address], 12/07/2022 07:27:28 12/04/19 23 12/07/2022 COMPR EHENS RAUL METAB OLIC PANEL bilirubin, total 0.4 mg/dL 0.2-1. 2 normal Not Available [address] [address] [place], [address], 12/07/2022 07:27:28 12/04/1912/07/2022 COMPR EHENS RAUL METAB OLIC PANEL alkaline phosphatase 51 U/L 35-144 normal Not Available [address] [address] [place], [address], 12/07/2022 07:27:28 12/04/1912/07/2022 COMPR EHENS RAUL METAB OLIC PANEL AST 18 U/L 10-35 normal Not Available [address], [address], 12/07/2022 07:27:28 12/04/1912/07/2022 COMPR EHENS RAUL METAB OLIC PANEL ALT 18 U/L 9-46 normal Not Available [address] [address] [place], [address], 12/07/2022 07:27:28 12/04/1912/07/2022 DAWOOD SCREE N, IFA, W/REF L TITER AND DANNY RN DAWOOD screen, ifa POSITI VE negati ve abnormal DAWOOD IFA is a first line scree n for detec ting the prese nce of up to appro ximat mary 150 autoa ntibo dies in vario us autoi mmune disea ses. A posit raul DAWOOD IFA resul t is sugge stive of autoi mmune disea se and refle xes to titer and danny coffman. Fur er labor atory testi ng may be consi dered if clini pito indic ated. For addit ional infor reno guillaume refer to http: //veena Danielson stDia gnost ics.c om/fa q/FAQ 177 (This link is being provi ded for infor niraj flowers/ traci vincent purpo ses only. ) Not Available [address] [address] [place], [address], 12/07/2022 13:30:48 12/04/19 23 12/07/2022 DAWOOD SCREE N, IFA, W/REF L TITER AND PATTE RN DAWOOD titer 1:40 titer high A low level DAWOOD titer may be prese nt in pre-c linic al autoi mmune disea ses and carla l indiv idual s. Refer ence Range <1:40 Negat raul 1:40- 1:80 Low Antib domingo Level >1:80 [place] patrice Antib domingo Level Not Available [facility] [address] [address], [place], [address], 12/07/2022 13:30:48 12/04/1912/07/2022 DAWOOD SCREE N, IFA, W/REF L TITER AND PATTE RN DAWOOD pattern MITOTI C, INTERC ELLULA R BRIDGE abnormal Stain ing of the inter cellu lar bridg e that conne cts daugh ter cells by the end of cell divis ion, but befor e cell separ ation . Patte rn is rare in syste teofilo scler osis, Yola ud's pheno felix , and in some malig megan es. AC-27 : Inter cellu lar Bridg e Inter natio nal Conse nsus on DAWOOD Patte rns (http s://d [email or web address] [email or web address]. 1515/ ccl- 2017- 0052) Not Available [facility] [address] [address], [place], [address], 12/07/2022 13:30:48 12/04/1912/07/2022 DAWOOD SCREE N, IFA, W/REF L TITER AND PATTE RN DAWOOD titer 1:40 titer high A low level DAWOOD titer may be prese nt in pre-c linic al autoi mmune disea ses and carla l indiv idual s. Refer ence Range <1:40 Negat raul 1:40- 1:80 Low Antib domingo Level >1:80 [place] patrice Antib domingo Level Not Available [facility] [address] [address], [place], [address], 12/07/2022 13:30:48 12/04/19 23 12/07/2022 DAWOOD SCREE N, IFA, W/REF L TITER AND PATTE RN DAWOOD pattern NUCLEA R, SPECKL ED abnormal Speck led patte rn is assoc iated with mixed conne ctive tissu e disea se (MCTD ), syste teofilo lupus eryth emato lashae (SLE) , Sjogr en's syndr ome, derma tomyo sitis , and syste teofilo scler osis/ polym yosit is overl ap. AC-2, 4,5,2 9: Speck led Inter natio nal Conse nsus on DAWOOD Patte rns (http s://d oi.or g/10. 1515/ [facility]- 2017- 0052) Not Available [facility] [address] [place], [address], 12/07/2022 13:30:48 12/04/19 23 12/11/2022 DAWOOD SCREE N, IFA, W/REF L TITER AND PATTE RN DAWOOD screen, ifa POSITI VE negati ve abnormal DAWOOD IFA is a first line scree n for detec ting the prese nce of up to appro ximat mary 150 autoa ntibo dies in vario us autoi mmune disea ses. A posit raul DAWOOD IFA resul t is sugge stive of autoi mmune disea se and refle xes to titer and patte rn. Furth er labor atory testi ng may be consi dered if clini pito indic ated. For addit ional infor reno guillaume e refer to http: //veena baum.Que stDia gnost ics.c om/fa q/FAQ 177 (This link is being provi ded for infor niraj flowers/ educa katie l purpo ses only. ) Not Available [facility] [address] [address], [place], [address], 12/11/2022 04:12:41 12/04/1912/11/2022 DAWOOD SCREE N, IFA, W/REF L TITER AND PATTE RN DAWOOD titer 1:40 titer high A low level DAWOOD titer may be prese nt in pre-c linic al autoi mmune disea ses and carla l indiv idual s. Refer ence Range <1:40 Negat raul 1:40- 1:80 Low Antib domingo Level >1:80 [place] patrice Antib domingo Level Not Available [facility] [address] [address] [place], [address], 12/11/2022 04:12:41 12/04/1912/11/2022 DAWOOD SCREE N, IFA, W/REF L TITER AND PATTE RN DAWOOD pattern MITOTI C, INTERC ELLULA R BRIDGE abnormal Stain ing of the inter cellu lar bridg e that conne cts daugh ter cells by the end of cell divis ion, but befor e cell separ ation . Patte rn is rare in syste teofilo scler osis, Yola ud's pheno felix , and in some malig megan es. AC-27 : Inter cellu lar Bridg e Inter natio nal Conse nsus on DAWOOD Patte rns (http s://d oi.or g/10. 1515/ [facility]- 2017- 0052) Not Available [facility] [address] [address] [place], [address], 12/11/2022 04:12:41 12/04/1912/11/2022 DAWOOD SCREE N, IFA, W/REF L TITER AND PATTE RN DWAOOD titer 1:40 titer high A low level DAWOOD titer may be prese nt in pre-c linic al autoi mmune disea ses and carla l indiv idual s. Refer ence Range <1:40 Negat raul 1:40- 1:80 Low Antib domingo Level >1:80 [place] patrice Antib domingo Level Not Available [facility] [address] [address] [place], [address], 12/11/2022 04:12:41 12/04/1912/11/2022 DAWOOD SCREE N, IFA, W/REF L TITER AND PATTE RN DAWOOD pattern NUCLEA R, SPECKL ED abnormal Speck led patte rn is assoc iated with mixed conne ctive tissu e disea se (MCTD ), syste teofilo lupus eryth emato lashae (SLE) , Sjogr en's syndr ome, derma tomyo sitis , and syste teofilo scler osis/ polym yosit is overl ap. AC-2, 4,5,2 9: Speck led Inter natio nal Conse nsus on DAWOOD Patte rns (http s://d oi.or g/10. 1515/ [facility]- [facility]- 0052) Not Available [facility] [address] [address], [place], [address], 12/11/2022 04:12:41 12/04/1912/11/2022 DAWOOD SCREE N, IFA, W/REF L TITER AND PATTE RN DAWOOD screen, ifa POSITI VE negati ve abnormal DAWOOD IFA is a first line scree n for detec ting the prese nce of up to appro ximat mary 150 autoa ntibo dies in vario us autoi mmune disea ses. A posit raul DAWOOD IFA resul t is sugge stive of autoi mmune disea se and refle xes to titer and danny rn. Furth er labor atory testi ng may be consi dered if clini pito indic ated. For addit ional infor niraj baum, reno e refer to http: //[facility] ganesh baum.Que stDia gnost ics.c om/fa q/FAQ 177 (This link is being provi ded for infor niraj flowers/ educa katie l purpo ses only. ) Not Available [facility] [address] [address], [place], [address], 12/11/2022 04:13:35 12/04/1912/11/2022 DAWOOD SCREE N, IFA, W/REF L TITER AND PATTE RN DAWOOD titer 1:40 titer high A low level DAWOOD titer may be prese nt in pre-c linic al autoi mmune disea ses and carla l indiv idual s. Refer ence Range <1:40 Negat raul 1:40- 1:80 Low Antib domingo Level >1:80 [place] patrice Antib domingo Level Not Available [facility] [address] [place], [address], 12/11/2022 04:13:35 12/04/1912/11/2022 DAWOOD SCREE N, IFA, W/REF L TITER AND PATTE RN DAWOOD pattern MITOTI C, INTERC ELLULA R BRIDGE abnormal Stain ing of the inter cellu lar bridg e that conne cts daugh ter cells by the end of cell divis ion, but befor e cell separ ation . Patte rn is rare in syste teofilo scler osis, Yola ud's pheno felix , and in some malig megan es. AC-27 : Inter cellu lar Bridg e Inter natio nal Conse nsus on DAWOOD Patte rns (http s://d oi.or g/10. 1515/ [facility]- [facility]- 0052) Not Available [address] [address] [address], [place], [address], 12/11/2022 04:13:35 12/04/1912/11/2022 DAWOOD SCREE N, IFA, W/REF L TITER AND PATTE RN DAWOOD titer 1:40 titer high A low level DAWOOD titer may be prese nt in pre-c linic al autoi mmune disea ses and carla l indiv idual s. Refer ence Range <1:40 Negat raul 1:40- 1:80 Low Antib domingo Level >1:80 [place] patrice Antib domingo Level Not Available [facility] [address] [place], [address], 12/11/2022 04:13:35 12/04/1912/11/2022 DAWOOD SCREE N, IFA, W/REF L TITER AND PATTE RN DAWOOD pattern NUCLEA R, SPECKL ED abnormal Speck led patte rn is assoc iated with mixed conne ctive tissu e disea se (MCTD ), syste teofilo lupus eryth emato lashae (SLE) , Sjogr en's syndr ome, derma tomyo sitis , and syste teofilo scler osis/ polym yosit is overl ap. AC-2, 4,5,2 9: Speck led Inter natio nal Conse nsus on DAWOOD Nelson rns (http s://d [email or web address] g/[email or web address]. 1515/ [facility]- [facility]- 0052) Not Available [facility] [address] [address] [place], [address], 12/11/2022 04:13:35 03/31/19 24 04/01/2023 PSA, TOTAL PSA, total 1.85 NG/mL < or = 4.00 normal The total PSA value from this assay syste m is stand ardiz ed again st the WHO stand [place]. The test resul t will be appro ximat mary 20% lower when minesh red to the equim olar- stand ardiz ed total PSA (Tamayo man Coult er). Minesh rison of seria l PSA resul ts shoul d be inter prete d with this fact in mind. This test was perfo rmed using the [place] ns chemi lumin escen t metho d. Value s obtai shane from diffe rent assay metho ds canno t be used inter kumar eably . PSA level s, regar dless of value , shoul d not be inter prete d as absol tohono o'odham evide nce of the prese nce or absen ce of disea se. Not Available [facility] [address] [place], [address], 04/01/2023 12:08:32 03/31/19 24 04/01/2023 VITAM IN B12/F OLATE , SERUM PANEL vitamin B12 569 pg/mL 200-11 00 normal Not Available [facility] [address] [place], [address], 04/01/2023 12:08:33 03/31/19 24 04/01/2023 VITAM IN B12/F OLATE , SERUM PANEL folate, serum 23.5 NG/mL normal Refer ence Range Low: <3.4 Borde rline : 3.4-5 .4 Carla l: >5.4 Not Available [address], [address], 04/01/2023 12:08:33 03/31/1904/01/2023 TSH W/REF SHAYE TO FT4 TSH w/reflex to FT4 0.86 mIU/L 0.40-4 .50 normal Not Available [address], [address], 04/01/2023 12:08:33 03/31/1904/04/2023 TESTO STERO NE, FREE, BIOAV AILAB LE AND TOTAL , MS albumin 4.4 g/dL 3.6-5. 1 Not Available [address], [address], 04/04/2023 17:49:11 03/31/19 24 04/04/2023 TESTO STERO NE, FREE, BIOAV AILAB LE AND TOTAL , MS sex hormone binding globulin 24.9 nmol/ L 10-50 Not Available [address], [address], 04/04/2023 17:49:11 03/31/19 24 04/04/2023 TESTO STERO NE, FREE, BIOAV AILAB LE AND TOTAL , MS testosterone , free 27.4 pg/mL 46.0-2 24.0 low Not Available [address], [address], 04/04/2023 17:49:11 03/31/19 24 04/04/2023 TESTO STERO NE, FREE, BIOAV AILAB LE AND TOTAL , MS testosterone ,bioavailabl e 55.2 NG/dL 110.0- 575.0 low Not Available [address], [address], 04/04/2023 17:49:11 03/31/19 24 04/04/2023 TESTO STERO NE, FREE, BIOAV AILAB LE AND TOTAL , MS testosterone , total, MS 180 NG/dL 250-11 00 low Men with clini pito signi fican t hypog onada l sympt oms and testo stero ne value s repea tedly in the range of the 200-3 00 ng/dL or less, may benef it from testo stero ne treat ment after adequ ate risk and benef its couns eling . For addit ional infor matburke nreno e refer to https ://ed ucati on.qu estTymphanys. com/f aq/FA Q165 (This link is being provi ded for infor matio nal/e ducat ional purpo ses only. ) (Note ) This test was devel oped and its elidia tical perfo rmanc e kelechi cteri stics have been deter mined by [employer]. It has not been clear ed or appro mary jo by the FDA. This assay has been valid ated pursu ant to the CLIA regul ation s and is used for clini shelia purpo ses. MDF med fusio n [address] [facility] [address] [facility] [address] [phone] Andrew green MD Not Available [facility] [address], [address], 04/04/2023 17:49:11 03/31/19 24 04/01/2023 COMPR EHENS RAUL METAB OLIC PANEL glucose 97 mg/dL 65-99 normal Fasti ng refer ence inter kyara Not Available [facility] [address], [address], 04/01/2023 12:22:48 03/31/19 24 04/01/2023 COMPR EHENS RAUL METAB OLIC PANEL urea nitrogen (BUN) 21 mg/dL 7-25 normal Not Available [facility] [address], [address], 04/01/2023 12:22:48 03/31/19 24 04/01/2023 COMPR EHENS RAUL METAB OLIC PANEL creatinine 0.99 mg/dL 0.70-1 .30 normal Not Available [address], [address], 04/01/2023 12:22:48 03/31/19 24 04/01/2023 COMPR EHENS RAUL METAB OLIC PANEL eGFR 91 mL/mi n/1.7 3m2 > or = 60 normal Not Available [address], [address], 04/01/2023 12:22:48 03/31/19 24 04/01/2023 COMPR EHENS RAUL METAB OLIC PANEL BUN/creatini ne ratio SEE NOTE: (calc ) 6-22 Not Repor patrice: BUN and Creat inine are withi n refer ence range . Not Available [address], [address], 04/01/2023 12:22:48 03/31/19 24 04/01/2023 COMPR EHENS RAUL METAB OLIC PANEL sodium 140 mmol/ L 135-14 6 normal Not Available [address], [address], 04/01/2023 12:22:48 03/31/19 24 04/01/2023 COMPR EHENS RAUL METAB OLIC PANEL potassium 4.7 mmol/ L 3.5-5. 3 normal Not Available [address], [address], 04/01/2023 12:22:48 03/31/19 24 04/01/2023 COMPR EHENS RAUL METAB OLIC PANEL chloride 105 mmol/ L 98-110 normal Not Available [address], [address], 04/01/2023 12:22:48 03/31/19 24 04/01/2023 COMPR EHENS RAUL METAB OLIC PANEL carbon dioxide 27 mmol/ L 20-32 normal Not Available [address] [place], [address], 04/01/2023 12:22:48 03/31/19 24 04/01/2023 COMPR EHENS RAUL METAB OLIC PANEL calcium 9.4 mg/dL 8.6-10 .3 normal Not Available [address], [address], 04/01/2023 12:22:48 03/31/19 24 04/01/2023 COMPR EHENS RAUL METAB OLIC PANEL protein, total 6.6 g/dL 6.1-8. 1 normal Not Available [address], [address], 04/01/2023 12:22:48 03/31/19 24 04/01/2023 COMPR EHENS RAUL METAB OLIC PANEL albumin 4.4 g/dL 3.6-5. 1 normal Not Available [address], [address], 04/01/2023 12:22:48 03/31/19 24 04/01/2023 COMPR EHENS RAUL METAB OLIC PANEL globulin 2.2 g/dL_ (calc ) 1.9-3. 7 normal Not Available [address], [address], 04/01/2023 12:22:48 03/31/19 24 04/01/2023 COMPR EHENS RAUL METAB OLIC PANEL albumin/glob ulin ratio 2.0 (calc ) 1.0-2. 5 normal Not Available [address], [address], 04/01/2023 12:22:48 03/31/19 24 04/01/2023 COMPR EHENS RAUL METAB OLIC PANEL bilirubin, total 0.3 mg/dL 0.2-1. 2 normal Not Available [address], [address], 04/01/2023 12:22:48 03/31/19 24 04/01/2023 COMPR EHENS RAUL METAB OLIC PANEL alkaline phosphatase 52 U/L 35-144 normal Not Available [address], [address], 04/01/2023 12:22:48 03/31/19 24 04/01/2023 COMPR EHENS RAUL METAB OLIC PANEL AST 24 U/L 10-35 normal Not Available [address], [address], 04/01/2023 12:22:48 03/31/19 24 04/01/2023 COMPR EHENS RAUL METAB OLIC PANEL ALT 26 U/L 9-46 normal Not Available [address], [address], 04/01/2023 12:22:48 03/31/19 24 04/01/2023 CBC (H/H, RBC, INDIC ES, WBC, PLT) white blood cell count 7.0 thous and/u L 3.8-10 .8 normal Not Available [address], [address], 04/01/2023 17:20:45 03/31/19 24 04/01/2023 CBC (H/H, RBC, INDIC ES, WBC, PLT) red blood cell count 4.82 denise on/uL 4.20-5 .80 normal Not Available [address], [address], 04/01/2023 17:20:45 03/31/19 24 04/01/2023 CBC (H/H, RBC, INDIC ES, WBC, PLT) hemoglobin 14.0 g/dL 13.2-1 7.1 normal Not Available [address], [address], 04/01/2023 17:20:45 03/31/19 24 04/01/2023 CBC (H/H, RBC, INDIC ES, WBC, PLT) hematocrit 41.9 % 38.5-5 0.0 normal Not Available [address], [address], 04/01/2023 17:20:45 03/31/19 24 04/01/2023 CBC (H/H, RBC, INDIC ES, WBC, PLT) MCV 86.9 fL 80.0-1 00.0 normal Not Available [address], [address], 04/01/2023 17:20:45 03/31/19 24 04/01/2023 CBC (H/H, RBC, INDIC ES, WBC, PLT) MCH 29.0 pg 27.0-3 3.0 normal Not Available [address], [address], 04/01/2023 17:20:45 03/31/19 24 04/01/2023 CBC (H/H, RBC, INDIC ES, WBC, PLT) MCHC 33.4 g/dL 32.0-3 6.0 normal Not Available [address], [address], 04/01/2023 17:20:45 03/31/19 24 04/01/2023 CBC (H/H, RBC, INDIC ES, WBC, PLT) RDW 13.2 % 11.0-1 5.0 normal Not Available [address], [address], 04/01/2023 17:20:45 03/31/19 24 04/01/2023 CBC (H/H, RBC, INDIC ES, WBC, PLT) platelet count 296 thous and/u L 140-40 0 normal Not Available [address], [address], 04/01/2023 17:20:45 03/31/19 24 04/01/2023 CBC (H/H, RBC, INDIC ES, WBC, PLT) MPV 11.9 fL 7.5-12 .5 normal Not Available [address], [address], 04/01/2023 17:20:45 04/18/19 24 04/21/2023 TESTO STERO NE, FREE, BIOAV AILAB LE AND TOTAL , MS albumin 4.2 g/dL 3.6-5. 1 Not Available [address], [address], 04/21/2023 04:23:16 04/18/19 24 04/21/2023 TESTO STERO NE, FREE, BIOAV AILAB LE AND TOTAL , MS sex hormone binding globulin 27.3 nmol/ L 10-50 Not Available [address], [address], 04/21/2023 04:23:16 04/18/19 24 04/21/2023 TESTO STERO NE, FREE, BIOAV AILAB LE AND TOTAL , MS testosterone , free 40.7 pg/mL 46.0-2 24.0 low Not Available [address], [address], 04/21/2023 04:23:16 04/18/19 24 04/21/2023 TESTO STERO NE, FREE, BIOAV AILAB LE AND TOTAL , MS testosterone ,bioavailabl e 78.3 NG/dL 110.0- 575.0 low Not Available [address], [address], 04/21/2023 04:23:16 04/18/19 24 04/21/2023 TESTO STERO NE, FREE, BIOAV AILAB LE AND TOTAL , MS testosterone , total, MS 273 NG/dL 250-11 00 Men with clini pito signi fican t hypog onada l sympt oms and testo stero ne value s repea tedly in the range of the 200-3 00 ng/dL or less, may benef it from testo stero ne treat ment after adequ ate risk and benef its couns eling . For addit ional infor reno guillaume refer to https ://ed ucati on.qu sterlingdi justinAppbyme tics. com/f aq/FA Q165 (This link is being provi ded for infor niraj nal/e ducat ional purpo ses only. ) (Note ) This test was devel oped and its elidia tical perfo rmanc e kelechi cteri stics have been deter mined by [employer]. It has not been clear ed or appro mary jo by the FDA. This assay has been valid ated pursu ant to the CLIA regul ation s and is used for clini shelia purpo ses. MDF med german baum [address] [facility] [address] [facility] [address] [phone] Andrew green MD Not Available [facility] [address] [place], [address], 04/21/2023 04:23:16 04/15/19 23 04/11/2022 home sleep study No observ ation record ed. [email or web address] [facility] [address], [place], [address], 04/15/2022 09:44:20 05/28/19 23 05/27/2022 judith strickland study No observ ation record ed. [email or web address] [facility] Scheduling [address] [place], [address], 08/13/2022 10:09:12 05/28/19 23 05/27/2022 judith strickland study No observ ation record ed. [email or web address] [facility] [address] [place], [address], 08/13/2022 10:09:12 Result Notes None recorded. Problems Name Problem SNOMED Code Status Onset Date Resolution Date Notes Provider Name and Address Organization Details Recorded Time Gastroesoph ageal reflux disease without esophagitis 509835391 Active 2019 ORVILLE Terry-BC, PMHNP-BC [address], [place], [address], [facility] 3 10:15:11 Cervical radiculopat hy [id number] Active 2019 FRANK TerryP-BC, PMHNP-BC [address], [facility] [place], [address], [facility] 3 10:15:12 Allergic rhinitis 87885038 Active 2019 ORVILLE Terry-BC, PMHNP-BC [address], [facility] [place], [address], [facility] 3 10:15:12 Hypogonadis m 14127231 Active 2020 ORVILLE Terry-BC, PMHNP-BC [address], [facility] [place], [address], [facility] 3 10:15:11 Elevated blood-press ure reading without diagnosis of hypertensio n 481224892 Active 2020 ORVILLE Terry-BC, PMHNP-BC [address], [place], [address], [facility] 3 10:15:11 Insomnia 505765972 Active 2020 FRANK TerryP-BC, PMHNP-BC [address], [place], [address], [facility] 3 10:15:11 Low back pain 472534773 Active 2021 FRANK TerryP-BC, PMHNP-BC [address], [place], [address], [facility] 3 10:15:11 Hyperlipide jazmín 83273079 Active 2022 Aria Hauser LAPPING MACHINE OPERATOR-BC, PMHNP-BC [address], [place], [address], [facility] 3 10:15:12 Obstructive sleep apnea of adult 4425446403557 Active 2022 Aria Hauser LAPPING MACHINE OPERATOR-BC, PMHNP-BC [address], [place], [address], [facility] 3 09:38:53 Decreased sexual function 075381803 Active 2022 Aria Hauser LAPPING MACHINE OPERATOR-BC, PMHNP-BC [address], [facility] [place], [address], [facility] 3 10:29:03 Sleep disorder 01357924 Active 2022 FRANK TerryP-BC, PMHNP-BC [address], [facility] [place], [address], [facility] 3 09:22:04 Obstructive sleep apnea syndrome 71943659 Active 2023 ORVILLE Terry-BC, PMHNP-BC [address], [place], [address], [facility] 4 21:14:30 Problem Notes None recorded. Procedures Surgical History Date Name Laterality Status Provider Name and Address Organization Details Recorded Time 0 Cerumen Removal completed ORVILLE Terry-BC, PMHNP-BC [address] [place], [address], [facility] 02/07/2020 20:22:59 repair of meniscus completed Aria Hauser LAPPING MACHINE OPERATOR-BC, PMHNP-BC [address] [place], [address], [facility] 11/27/2019 13:15:39 Hernia Repair completed Aria Hauser LAPPING MACHINE OPERATOR-BC, PMHNP-BC [address] [place], [address], [facility] 11/27/2019 13:16:34 Spinal surgery completed Aria Hauser, [facility], PMHNP-BC [address] [place], [address], [facility] 11/27/2019 13:16:14 Imaging Results Imaging Date Name Status LastModified by Organiz ation Details LastModified Time 04/11/2022 home sleep study completed [email or web address] [facility] [address], [place], [address], 04/15/2022 09:44:20 05/27/2022 barium swallow study completed [facility] Scheduling [address] [place], [address], 08/13/2022 10:09:12 05/27/2022 barium swallow study completed [email or web address] [facility] [address] [place], [address], 08/13/2022 10:09:12 Procedure Notes None recorded. Medical Equipment None Reported. Allergies Allergen ID Allergen Name Allergen Category Reaction Reaction Severity Criticality Documentation Date Start Date Code Code System Note Provider Name and Address Organization Details Recorded Time 3090 ibuprofen medicatio n irregular heart rate Not available Not available 11/27/2019 5640 RxNorm Aria Hauser, [facility], [facility]- [address] [place], [address], [facility] 0 13:12:57 Medications Name Sig Start Date Stop Date Status Note LastModified by Organization Details LastModified Time doxycycline hyclate 100 mg capsule TAKE 1 CAPSULE BY MOUTH TWICE A DAY 06/19 completed Not Available Not Available Not Available azithromyci n 250 mg tablet TAKE 2 TABLETS BY MOUTH TODAY, THEN TAKE 1 TABLET DAILY FOR 4 DAYS 05/19 completed Not Available Not Available Not Available hydrocodone 5 mg-acetamin ophen 325 mg tablet Take 1 tablet every 4-6 hours by oral route as needed for 3 days. 06/19 completed Not Available Not Available Not Available Claritin 10 mg tablet Take 1 tablet twice a day by oral route. 08/05 completed Not Available Not Available Not Available famotidine 40 mg tablet Take 1 tablet every day by oral route at bedtime for 90 days. 06/19 completed Not Available Not Available Not Available prednisone 20 mg tablet TAKE 3 TABLETS BY MOUTH ONCE DAILY FOR 5 DAYS THEN TAKE 2.5 TABS DAILY FOR 5 DAYS THEN TAKE 2 TABS BY MOUTH DAILY FOR 5 DAYS THEN TAKE 1.5 T 06/19 completed Not Available Not Available Not Available dexamethaso ne 6 mg tablet Take 1 tablet every day by oral route for 5 days. 11/24 completed Not Available Not Available Not Available melatonin 3 mg tablet TAKE 2 TABLETS BY MOUTH EVERY DAY AT BEDTIME FOR 30 DAYS 05/11 completed Not Available Not Available Not Available acetaminoph en 300 mg-codeine 30 mg tablet TAKE 1 TABLET BY MOUTH EVERY 6 TO 8 HOURS WITH FOOD NEEDED FOR PAIN 06/19 completed Not Available Not Available Not Available ciprofloxac in 500 mg tablet Take 1 tablet twice a day by oral route. 06/19 completed Not Available Not Available Not Available omeprazole 40 mg capsule,del ayed release Take 1 capsule every day by oral route for 90 days. 08/05 completed Not Available Not Available Not Available tramadol 50 mg tablet TAKE 1 TABLET BY MOUTH EVERY 8 HOURS FOR 7 DAYS 02/11 completed Not Available Not Available Not Available cefadroxil 500 mg capsule Take 1 capsule twice a day by oral route. 06/19 completed Not Available Not Available Not Available famotidine 20 mg tablet TAKE 1 TABLET BY MOUTH TWICE A DAY 05/11 completed Not Available Not Available Not Available baclofen 10 mg tablet TAKE 1 TABLET 3 TIMES A DAY BY ORAL ROUTE NEEDED. 05/19 completed Not Available Not Available Not Available hydrocodone 7.5 mg-acetamin ophen 325 mg tablet 08/28 completed Not Available Not Available Not Available bupropion HCl 75 mg tablet Take 1 tablet every day by oral route for 90 days. 08/05 completed Not Available Not Available Not Available budesonide 0.5 mg/2 mL suspension for nebulizatio n 08/28 completed Not Available Not Available Not Available gabapentin 100 mg capsule Take 1 capsule orally HS x 7 days then take 2 capsules orally HS x 7 days then take 3 capsule orally HS 06/19 completed Not Available Not Available Not Available azelastine 137 mcg (0.1 %) nasal spray SPRAY 2 SPRAYS IN EACH NOSTRIL TWICE A DAY 08/28 completed Not Available Not Available Not Available testosteron e cypionate 200 mg/mL intramuscul ar oil Inject 0.25 mL every 2 weeks by intramusc ular route for 30 days. 08/28 completed Not Available Not Available Not Available methylpredn isolone 4 mg tablets in a dose pack TAKE 6 TABLETS ON DAY 1 DIRECTED ON PACKAGE AND DECREASE BY 1 TAB EACH DAY FOR A TOTAL OF 6 DAYS 02/11 completed Not Available Not Available Not Available albuterol sulfate HFA 90 mcg/actuati on aerosol inhaler Inhale 2 puffs every 4 hours by inhalatio n route as needed for 30 days. 05/19 completed Not Available Not Available Not Available celecoxib 100 mg capsule Take 1 capsule twice a day by oral route for 90 days. 05/04 completed Not Available Not Available Not Available cefdinir 300 mg capsule 08/28 completed Not Available Not Available Not Available fluticasone propionate 50 mcg/actuati on nasal spray,suspe nsion SPRAY 1 SPRAY IN EACH NOSTRIL TWICE A DAY 05/19 completed Not Available Not Available Not Available cholecalcif yamile (vitamin D3) 125 mcg (5,000 unit) capsule TAKE 1 CAPSULE BY MOUTH EVERY DAY FOR 30 DAYS active Not Available Not Available No t Available amoxicillin 875 mg-potassiu m clavulanate 125 mg tablet TAKE 1 TABLET BY MOUTH EVERY 12 HOURS FOR 10 DAYS 06/19 completed Not Available Not Available Not Available escitalopra m 10 mg tablet Take 1 tablet every day by oral route for 90 days. 08/05 completed Not Available Not Available Not Available ezetimibe 10 mg tablet Take 1 tablet every day by oral route for 90 days. 08/05 completed Not Available Not Available Not Available eszopiclone 1 mg tablet Take 1 tablet every day by oral route at bedtime for 90 days. 08/05 completed Not Available Not Available Not Available cholecalcif yamile (vitamin D3) 125 mcg (5,000 unit) tablet Take 1 tablet every day by oral route for 30 days. 05/11 completed Not Available Not Available Not Available Dexilant 60 mg capsule, delayed release Take 1 capsule every day by oral route for 56 days. 08/28 completed Not Available Not Available Not Available testosteron e 20.25 mg/1.25 gram per pump act.(1.62 %) transdermal gel 08/05 completed Not Available Not Available Not Available Vitals Date Recorded Body height Body mass index (BMI) Body weight Heart rate Respiratory rate Oxygen saturation Oxygen saturation in Arterial blood by Pulse oximetry Body temperature Systolic blood pressure Diastolic blood pressure Provider Name and Address Organization Details Last Updated DateTime 3 187.96 cm 33.3 kg/m2 178993. 86 g 90 /min 16 /min 95 % 95 % 97.9 [degF] 136 mm[Hg] 86 mm[Hg] Ameena Thompson [facility] 3 11:35:54 Date Recorded Body height Heart rate Respiratory rate Oxygen saturation Oxygen saturation in Arterial blood by Pulse oximetry Body temperature Systolic blood pressure Diastolic blood pressure Provider Name and Address Organization Details Last Updated DateTime 3 187.96 cm 87 /min 16 /min 94 % 94 % 98.2 [degF] 126 mm[Hg] 84 mm[Hg] Genet Mancilla [facility] 3 12:57:09 Date Recorded Body height Body mass index (BMI) Body weight Heart rate Respiratory rate Oxygen saturation Oxygen saturation in Arterial blood by Pulse oximetry Body temperature Systolic blood pressure Diastolic blood pressure Provider Name and Address Organization Details Last Updated DateTime 3 187.96 cm 34.2 kg/m2 630057. 57 g 80 /min 16 /min 96 % 96 % 97.8 [degF] 114 mm[Hg] 81 mm[Hg] Genet Mancilla [facility] 3 10:14:24 Date Recorded Body height Body mass index (BMI) Body weight Provider Name and Address Organization Details Last Updated DateTime 12/01/2022 187.96 cm 33.1 kg/m2 802290.83 g Aria Hauser, LAPPING MACHINE OPERATOR-BC, PMHNP-BC [address] [place], [address], [facility] 12/01/2022 08:21:56 Date Recorded Heart rate Respiratory rate Oxygen saturation Oxygen saturation in Arterial blood by Pulse oximetry Body temperature Systolic blood pressure Diastolic blood pressure Provider Name and Address Organization Details Last Updated DateTime 3 75 /min 18 /min 96 % 96 % 97.7 [degF] 140 mm[Hg] 88 mm[Hg] Prabhu Squireswell [facility] 3 08:55:39 Date Recorded Body height Body mass index (BMI) Body weight Heart rate Respiratory rate Oxygen saturation Oxygen saturation in Arterial blood by Pulse oximetry Body temperature Systolic blood pressure Diastolic blood pressure Provider Name and Address Organization Details Last Updated DateTime 4 187.96 cm 35.9 kg/m2 407504. 71 g 66 /min 18 /min 94 % 94 % 98 [degF] 124 mm[Hg] 84 mm[Hg] Prabhu Alecia [facility] 4 16:03:31 Social History Question Answer Notes LastModified by Organizat ion Details LastModified Time Tobacco Smoking Status Never Smoker Not Available [facility] 12/18/2019 03:13:53 Do You Have An Advance Directive? No [id number] Information not available 12/18/2019 What Is Your Level Of Alcohol Consumption? Occasional [id number] Information not available 12/18/2019 How Many Times Per Week Do You Consume Alcohol? <1 Time Per Week [email or web address] Information not available 02/11/2022 How Many Years Have You Consumed Alcohol? 20 [email or web address] Information not available 02/11/2022 Are You Currently Sexually Active With Anyone Who Has Traveled (within The Last 12 Weeks) To A Zika-affected Area? No [email or web address] Information not available 06/09/2021 Do You Wear A Helmet When Biking? Yes [email or web address] Information not available 06/09/2021 Are You Blind Or Do You Have Difficulty Seeing? No [email or web address] Information not available 06/09/2021 Is Blood Transfusion Acceptable In An Emergency? Yes Information not available 03/25/2022 What Is Your Level Of Caffeine Consumption? Occasional [id number] Information not available 12/18/2019 How Much Tobacco Do You Chew? None [id number] Information not available 12/18/2019 What Type Of Bill Cutter Do You Use? None [email or web address] Information not available 06/09/2021 What Is Your Code Status? Full Code [email or web address] Information not available 06/09/2021 In The 14 Days Before Symptom Onset, Have You Had Close Contact With A Laboratory-confir med COVID-19 While That Case Was Ill? No [email or web address] Information not available 06/09/2021 In The 14 Days Before Symptom Onset, Have You Had Close Contact With A Person Who Is Under Investigation For COVID-19 While That Person Was Ill? No [email or web address] Information not available 06/09/2021 Have You Been To An Area Known To Be High Risk For COVID-19? No [email or web address] Information not available 06/09/2021 Are You Currently Employed? No [id number] Information not available 12/18/2019 Are You Deaf Or Do You Have Serious Difficulty Hearing? No [email or web address] Information not available 06/09/2021 What Type Of Diet Are You Following? REGULAR [id number] Information not available 12/18/2019 Which Illicit Or Recreational Drugs Have You Used? None [id number] Information not available 12/18/2019 Have You Processed Blood Or Body Fluids From An Ebola Virus Disease Patient Without Appropriate PPE? No [email or web address] Information not available 06/09/2021 Do You Reside In Or Have You Traveled To An Area Where Ebola Virus Transmission Is Active? No [email or web address] Information not available 06/09/2021 Do You Or Have You Ever Used E-cigarettes Or Vape? Never Used Electronic Cigarettes [id number] Information not available 12/18/2019 Education 2 Year College Informatio n not available 11/27/2019 What Is The Highest Grade Or Level Of School You Have Completed Or The Highest Degree You Have Received? 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 No Information no t available 06/09/2021 What Is The Fluoride Status Of Your Home? Fluoridated [email or web address] Information not available 06/09/2021 Are There Any Guns Present In Your Home? Yes [id number] Information not available 12/18/2019 Which Of Your Hands Is Dominant? Right [email or web address] Information not available 06/09/2021 Hard Of Hearing Or Deaf In One Or Both Ears? No [email or web address] Information not available 11/27/2019 Have You Recently Or Are You Planning To Travel To An Area With Zika Virus? No [email or web address] Information not available 06/09/2021 Do You Use Insect Repellent Routinely? Yes [email or web address] Information not available 06/09/2021 Legally Blind In One Or Both Eyes? No [email or web address] Information no t available 11/27/2019 Live Alone Or With Others? With Others [email or web address] Information not available 11/27/2019 Do You Have A Medical Power Of Explosive Operator? No [email or web address] Information not available 06/09/2021 What Was The Date Of Your Most Recent Tobacco Screening? 03/25/2022 [email or web address] Information not available 03/25/2022 How Many Children Do You Have? 0 [id number] Information not available 12/18/2019 Have You Ever Been Counseled For Unhealthy Alcohol Use? No Information not available 02/11/2022 Performs Monthly Self-breast Exam? No Information no t available 11/27/2019 Do You Have Any Pets? Yes [email or web address] Information not available 06/09/2021 Do You Use Protection During Sex? No [email or web address] Information not available 03/25/2022 What Is Your Relationship Status? Domestic Partner [email or web address] Information not available 06/09/2021 Do You Use Your Seat Belt Or Car Seat Routinely? Yes [email or web address] Information not available 06/09/2021 Seat Belts Used Routinely Yes [email or web address] Information not available 11/27/2019 Are You Sexually Active? Yes [id number] Information not available 12/18/2019 Smoke Alarm In Home Yes [email or web address] Information not available 11/27/2019 Do You Have Smoke And Carbon Monoxide Detectors In Your Home? Yes [email or web address] Information not available 06/09/2021 Are You Passively Exposed To Smoke? No Information no t available 11/27/2019 Do You Or Have You Ever Used Smokeless Tobacco? Never Used Smokeless Tobacco [id number] Information not available 12/18/2019 How Much Tobacco Do You Smoke? No [id number] Information not available 12/18/2019 Do You Participate In Social Media? Yes [email or web address] Information not available 03/25/2022 General Stress Level Medium [email or web address] Information not available 11/27/2019 Do You Feel Stressed (tense, Restless, Nervous, Or Anxious, Or Unable To Sleep At Night)? [id number] pyprwvuqx25 Information not available 06/09/2021 Do You Use Any Illicit Or Recreational Drugs? No [email or web address] Information not available 06/09/2021 Do You Use Sunscreen Routinely? Yes [id number] Information not available 12/18/2019 How Many Years Have You Smoked Tobacco? 0 [id number] Information not available 12/18/2019 Have You Recently Traveled Abroad? No [email or web address] Information not available 06/09/2021 Are You Currently In School? Yes [email or web address] Information not available 06/09/2021 Do You Have Any Dietary Restrictions? No [email or web address] Information not available 06/09/2021 Do You Or Have You Ever Used Any Other Forms Of Tobacco Or Nicotine? No pyvrqybsg82 Information not available 06/09/2021 Sex: Male Functional Status Question Answer Note LastModified by Organizat ion Details LastModified Time Do you have difficulty walking or climbing stairs? No [email or web address] Information not available 06/09/2021 Do you have transportation difficulties? No [email or web address] Information not available 06/09/2021 Are you able to walk? YESWOREST [id number] Information not available 12/18/2019 Do you have difficulty doing errands alone? No [email or web address] Information not available 06/09/2021 Are you able to care for yourself? Yes [id number] Information not available 12/18/2019 Do you have difficulty dressing or bathing? No [email or web address] Information not available 06/09/2021 What is your exercise level? None [id number] Information not available 12/18/2019 Mental Status Question Answer Note LastModified by Organization D etails LastModified Time Do you have difficulty concentrating, remembering or making decisions? No [email or web address] Information no t available 06/09/2021 Family History Relationship Description Onset Age of this Age Resolved Age Notes LastModified by Organization Details LastModified Time Unspecified Relation Malignant tumor of breast Not available 2019 13:13:18 Unspecified Relation Family history of malignant neoplasm [email or web address] Not available 2019 13:13:35 Medical History Condition Response Hospitalizations Y Gastrointestinal Diseases / Disorders Y Allergies/Hayfever Y Anxiety Disorder Y Musculoskeletal Diseases / Disorders Y Hyperlipidemia Y Depression Y Past Encounters Encounter ID Performer Location Encounter Start Date Encounter Closed Date Diagnosis/Indication Diagnosis SNOMED-CT Code Diagnosis ICD10 Code Diagnosis [id number] Main Office [address] [place] [address] 11/27/2019 13:12:23 11/27/2019 17:48:27 Allergic rhinitis 29507972 J30.9 Acute sinusitis 54671399 J01.90 [id number] Aria Hauser [facility], [facility] Main Office [address] [place] [address] 02/07/2020 09:25:56 02/07/2020 20:31:19 Elevated blood-pressure reading without diagnosis of hypertension 492076989 R03.0 Hypogonadism 65641659 E2 9.1 Fatigue 03291365 R53.83 Screening for cardiovascular system disease 347171045 Z13.6 Cervical radiculopathy 33685836 M54.12 Abnormalit y of nail of toe 036139451 L60.8 Gastroesop hageal reflux disease without esophagitis 695482221 K21.9 Impacted c erumen of bilateral ears 0348367107 940452 H61.23 [id number] [facility] Main Office [address] [place] [address] 06/19/2020 15:13:50 06/19/2020 16:08:05 Hypogonadism 17788099 E29.1 Aria Hauser [facility], [facility] Main Office [address] [place] [address] 08/28/2020 15:02:48 08/28/2020 16:58:18 Hypogonadism 34566635 E29.1 Elevated blood-pressure reading without diagnosis of hypertension 422191634 R03.0 Anemia 619379412 D64.9 Insomnia 911505966 G47.0 0 Pain of ri ght elbow joint 9400830445 9598369 M25.521 Hyperlipidemia 76417168 E78.5 Body mass index 30+ - obesity 172913750 Z68.32 [id number] Aria Hauser [facility], [facility] Main Office [address] [place] [address] 02/16/2021 17:35:30 02/17/2021 10:11:43 SARS-CoV-2 764683500 U07.1 Mixed anxi ety and depressive disorder 971896265 F41.8 [id number] Aria Hauser [facility], [facility] Main Office [address] [place] [address] 04/29/2021 07:23:48 04/29/2021 09:01:39 Mixed anxiety and depressive disorder 301996698 F41.8 Doing much better with the Escitalopr am. Symptoms are stable and controlled with medication . Continue regimen. [id number] Aria Hauser [facility], [facility] Main Office [address] [place] [address] 05/11/2021 07:35:19 05/11/2021 10:21:27 Paresthesia of upper limb 63438039 R20.2 Ordering NCS for further evaluation of numbness/t ingling. Pain of ri ght elbow joint 3385511706 9671226 M25.521 Pain of elbow, will obtain x-ray to evaluate if any degenerati ve changes noted causing possible impingemen t of nerves in RUE. [id number] Aria Hauser [facility], [facility] Main Office [address] [place] [address] 06/09/2021 16:07:19 06/09/2021 19:23:53 Low back pain 041397092 M54.50 Bilateral hip joint pain 3690174966 7151801 M25.551 M25.552 Adult heal th examination 877377834 Z00.00 Anemia 535223208 D64.9 has had some low counts in past. Evaluating . [id number] Aria De Souza Murtaza [facility], [facility] Main Office [address] [place] [address] 07/06/2021 08:32:05 07/06/2021 10:26:27 Umbilical hernia 924283835 K42.9 [id number] Aria Ap Murtaza [facility], [facility] Main Office [address] [place] [address] 02/11/2022 14:59:44 02/11/2022 16:03:12 Snoring 69348627 R06.83 Decreased sexual function 842241545 R37 Given to help with decreased sexual function. SSRI is known to cause such dysfunctio n. Given Wellbutrin to help with such. [id number] Aria BlancaCarlie Hauser [facility], [facility] Main Office [address] [place] [address] 03/25/2022 15:47:21 03/25/2022 20:55:03 Decreased sexual function 922449653 R37 Given to help with decreased sexual function. SSRI is known to cause such dysfunctio n. Given Wellbutrin to help with such. Mixed anxi ety and depressive disorder 338991424 F41.8 Doing much better with the Escitalopr am. Symptoms are stable and controlled with medication . Continue regimen. Hyperlipidemia 82865293 E78.2 taking medication . labs to eval levels. Low back pain 088300523 M54.50 given increased pain and related. Started Celebrex. [id number] Aria De Souza Murtaza [facility], [facility] Main Office [address] [place] [address] 04/16/2022 11:31:28 04/16/2022 16:18:52 Acute bacterial sinusitis 51193826 J01.90 Body mass index 30+ - obesity 554109817 Z68.33 [id number] [facility] CENTER, [facility] Main Office [address] [place] [address] 05/19/2022 11:52:07 05/19/2022 20:08:13 Dysphagia [id number] R13.10 [id number] Aria Hauser [facility], [facility] Main Office [address] [place] [address] 08/13/2022 10:08:03 08/13/2022 16:20:58 Contact dermatitis caused by urushiol from [place] poison darlin [id number] L25.5 steroids given IM x 1 given the worsening poison darlin and then continue with oral medication . Hyperlipidemia [id number] E78.2 taking medication . labs to eval levels. Mixed anxi ety and depressive disorder [id number] F41.8 Doing much better with the Escitalopr am. Symptoms are stable and controlled with medication . Continue regimen. Low back pain [id number] M54.50 given increased pain and related. Started Celebrex. Decreased sexual function [id number] R37 Given to help with decreased sexual function. SSRI is known to cause such dysfunctio n. Given Wellbutrin to help with such. Sleep disorder [id number] G47.9 [id number] Lola Reza Main Office [address] [place] [address] 12/01/2022 08:20:32 12/01/2022 14:29:53 Hyperlipidemia 29002511 E78.2 taking medication . labs to eval levels. Mixed anxi ety and depressive disorder 559641454 F41.8 Doing much better with the Escitalopr am. Symptoms are stable and controlled with medication . Continue regimen. Low back pain [id number] M54.50 Celebrex has helping with back pain and arthritic pain. Decreased sexual function [id number] R37 Wellbutrin has helped with sexual dysfunctio n. Sleep disorder 30309725 G47.9 Sleep much better with medication . has been sleeping better when taking medication . [id number] Aria Hauser [facility], [facility] Main Office [address] [place] [address] 03/31/2023 15:56:37 04/04/2023 18:57:40 Hyperlipidemia 24083577 E78.2 taking medication . labs to eval levels. Mixed anxi ety and depressive disorder [id number] F41.8 Doing much better with the Escitalopr am. Denies SI/HI. Low back pain 117805191 M54.50 Celebrex has helping with back pain and arthritic pain.Will be seeing Miguel A abad given the abnormalit ies on his labs. Decreased sexual function 844179336 R37 Wellbutrin has helped with sexual dysfunctio n. Sleep disorder 82420955 G47.9 Uses with CPAP as sometimes difficult to sleep. Gastroesop hageal reflux disease without esophagitis 437649533 K21.9 Lifestyle modificati ons with wt loss, avoid meals 2-3h before HS. Consider eliminatin g food triggers: chocolate, caffeine, ETOH, acid/spicy food. Prilosec as directed. Obstructiv e sleep apnea syndrome 08018812 G47.33 Continue using mask as directed.T coy, patience are [place] to success. If mask bothersome find one that you can tolerate. Raised ant inuclear antibody [id number] R76.0 seeing miguel a abad next month for further evaluation . Health Concerns Section Related Observation LastModified by Organization Detai ls LastModified Time None Recorded Concern Status LastModified by Organization Details LastModified Time None Recorded Advance Directives Directive N: Payers Encounter Date Sequence Insurance Name Policy Number Policy Paulino Covered Member ID Paulino Member ID Guarantor Name 04/16/2022 1 [facility] [employer]NAG[employer] Donnie Haney [id number] Donnie Haney 05/19/2022 1 [facility] [employer] Donnie Haney [id number] Donnie Haney 08/13/2022 1 [facility] [employer] Donnie Haney [id number] Donnie Haney 12/01/2022 1 [facility] [employer] Donnie Haney [id number] Donnie Haney 03/31/2023 1 [place] [id number] Donnie Haney [id number] Donnie Haney Notes Date Note Type Note Provider Name and Address Organization Details Recorded Time 3 text/html Sinusitis/AllergyReported bypatient.Location:[place] Quality:congested(pressur e, non productive cough) Severity:limits daily activities;interference with work Onset/Timing:abrupt onset Context:no recent upper respiratory infection; no recent sick contacts; not worse with seasonal allergen exposure; not worse when mowing grass; not worse with certain foods Alleviating factors:nothing gives relief Aggravating factors:not worse during an upper respiratory infection (a cold) Associated Symptoms:fever/chills;cou gh(non-productive);facial pain bilaterally;sinus pain cheek;constantly clearing the throat;nasal discharge;ear fullness Risk Factors:no current smoking or tobacco use; no history of smoking; no family history of allergies; no history of nasal trauma; no allergy to aspirin; no history of nasal polyps; no history of asthma; no chemotherapy; no DM; no HIV; no immunodeficiency GREG Terry, [facility] [address] [employer] [facility] 04/16/2022 13:09:44 3 text/html DysphagiaReported bypatient.Location:throat Quality:tightness Severity:regurgitation of digested/undigested food Duration:present for 1-5 years Onset/Timing:gradual onset; worse with meals Context:no specific foods cause problems; no history of GERD Alleviating Factors:coughing Associated Symptoms:no chest pain; no weight loss; not spitting up blood; not spitting up coffee ground-like material; no anemia; no fatigue; no red blood in stool; no black/tarry stools; adequate caloric intake GREG Terry, [facility]- [address] [place], [address], [place] - [employer] [facility] 05/19/2022 18:25:48 3 text/html Anxiety/DepressionReporte d bypatient.Quality:symptom s improved Severity:denies suicidal ideations; able to maintain relationships; does not interfere with activities of daily living Context:no major life stressors Associated Symptoms:denies homicidal ideations; no significant weight gain; no significant weight loss; no visual/auditory hallucinations; no delusions; no shortness of breath; mood good; no anxiety; no crying spells; no panic; no isolation; sleeping well; appetite good; energy good; no apathy; maintaining functionalityGeneral Rash/Skin LesionReported bypatient.Location:chest; arm; hands Quality:itchy;red;multipl e Severity:moderate; worsening Duration:has noted for <1 week Onset/Timing:abrupt onset Context:no new detergents or skin products; no one else with similar rash Aggravating factors:nothing makes it worse Associated Symptoms:no fever; no cold symptoms; no nausea; no vomiting; no diarrhea; no urinary symptomsJoint & Soft Tissue PainReported bypatient.Location:joint pain Quality:aching Severity:variable Alleviating Factors:NSAIDS Associated Symptoms:no weakness; no numbness; no tingling; no swelling; no redness; no warmth; no ecchymosis; no catching/locking; no popping/clicking; no buckling; no grinding; no instability; no radiation down leg; no fever/chills; no weight loss; no change in bowel/bladder habits HLD - Compliant with medication. No side effects. Aria Hauser, LAPPING MACHINE OPERATOR-BC, PMHNP-BC [address] [place], [address], [facility] 08/13/2022 14:40:34 3 text/html Anxiety/DepressionReporte d bypatient.Quality:symptom s improved Severity:denies suicidal ideations; able to maintain relationships; does not interfere with activities of daily living Context:no major life stressors Associated Symptoms:denies homicidal ideations; no significant weight gain; no significant weight loss; no visual/auditory hallucinations; no delusions; no shortness of breath; mood good; no anxiety; no crying spells; no panic; no isolation; sleeping well; appetite good; energy good; no apathy; maintaining functionalityNotes:Doing better with sexual dysfunction with Wellbutrin.Sleep better with medication.Joint & Soft Tissue PainReported bypatient.Location:joint pain Quality:aching Severity:variable Alleviating Factors:NSAIDS Associated Symptoms:no weakness; no numbness; no tingling; no swelling; no redness; no warmth; no ecchymosis; no catching/locking; no popping/clicking; no buckling; no grinding; no instability; no radiation down leg; no fever/chills; no weight loss; no change in bowel/bladder habits HLD - Compliant with medication. No side effects. Lola Reza nico, [facility] 12/03/2022 11:31:21 4 text/html Anxiety/DepressionReporte d bypatient.Quality:symptom s improved Severity:denies suicidal ideations; able to maintain relationships; does not interfere with activities of daily living Context:no major life stressors Associated Symptoms:denies homicidal ideations; no significant weight gain; no significant weight loss; no visual/auditory hallucinations; no delusions; no shortness of breath; mood good; no anxiety; no crying spells; no panic; no isolation; sleeping well; appetite good; energy good; no apathy; maintaining functionality Notes:Doing better with sexual dysfunction with Wellbutrin. Joint & Soft Tissue PainReported bypatient.Location:joint pain Quality:aching Severity:variable Alleviating Factors:NSAIDS Associated Symptoms:no weakness; no numbness; no tingling; no swelling; no redness; no warmth; no ecchymosis; no catching/locking; no popping/clicking; no buckling; no grinding; no instability; no radiation down leg; no fever/chills; no weight loss; no change in bowel/bladder habits HLD - Semi-compliant with medication. No side effects.KULDEEP - wearing CPAP and tolerating well. Does get better sleep when wearing mask and can tell a difference without it.GERD - Patient c/o heartburn/regurgitation when he does not take medication. Denies cough, SOB, sore throat, changes of taste. No dysphagia. No CP. Aria Hauser, LAPPING MACHINE OPERATOR-BC, PMHNP-BC [address] [place], [address], [place] [facility] 03/31/2023 21:16:42
--- OUTSIDE RECORDS SUMMARY | 2024-03-21 16:16 | XMS_ITS | Clinical Summary ---
Author Organization [facility] Address [address] [place] [address] Care Team Providers Care Tip Finisher Name Role Phone Deysi Wang NP Primary Care Provider [phone] Allergies Active Allergy Reactions Criticality Noted Date Comments Aspirin Nausea only,Nausea A nd Vomiting Low 06/08/2018 Reaction: Nausea, , , Ibuprofen Nausea only,Vomiting,Angioedema ,Nausea And Vomiting,Other (See comments),Palpitations,N ausea & Vomiting High 05/25/2018 Reaction: Nausea, ??Vomiting, ??, , Chest pain Reaction: Nausea, ??Vomiting, ??, , Medications traMADol (ULTRAM) 50 mg tablet Take 1 tablet (50 mg total) by mouth every 4 (four) hours as needed for pain. 20 tablet 8 Active Additional Information Patient not taking.Reported on 11/15/2023 eszopiclone (LUNESTA) 1 mg tablet 3 Active albuterol HFA (PROVENTIL HFA,VENTOLIN HFA,PROAIR HFA) 90 mcg/actuation inhaler 4 Active buPROPion XL (WELLBUTRIN XL) 300 mg 24 hr tablet 4 Active celecoxib (CeleBREX) 100 mg capsule TAKE 1 CAPSULE BY MOUTH TWICE A DAY FOR 90 DAYS for 20 3 Active cholecalciferol (VITAMIN D-3) 5,000 unit capsule TAKE 1 CAPSULE BY MOUTH EVERY DAY FOR [address] (CYMBALTA) 60 mg capsule 4 Active ezetimibe (ZETIA) 10 mg tablet 4 Active montelukast (SINGULAIR) 10 mg tablet 1 tab(s) orally once a day for 30 day(s) Active levocetirizine (XYZAL) 5 mg tablet 1 tab(s) orally once a day (in the evening) for 30 day(s) Active omeprazole (PriLOSEC) 40 mg capsule Take 1 capsule (40 mg total) by mouth daily before breakfast Active scopolamine 1 mg over 3 days patch 3 day 4 Active testosterone cypionate (DEPO-TESTOTERO NE) 200 mg/mL injection 4 Active Zepbound 10 mg/0.5 mL pen injector 4 Active Active Problems Problem Noted Date Diagnosed Date Cervical radiculopathy 02/07/2020 Gastroesophageal reflux disease without esophagi tis 02/07/2020 Impacted cerumen, bilateral 08/03/2018 DNS (deviated nasal septum) 06/08/2018 Hypertrophy of inferior nasal turbinate 06/09/19 19 Laryngopharyngeal reflux 06/08/2018 Malocclusion of teeth 06/08/2018 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 PNAR (perennial non-allergic rhinitis) 9 Esophageal dysphagia 02/17/2018 Overview (02/17/2018): Added automatically from request for surgery [id number] KULDEEP on CPAP 07/07/2013 Overview (05/26/2016): Sleep apnea, obstructive Exomphalos 06/09/2012 Overview (05/28/2016): Umbilical hernia Surgical History Surgery Date Site/Laterality Comments HERNIA REPAIR Hernia repair BACK SURGERY 02/21/2003 - 02/21/2004 Back surgery OTHER SURGICAL HISTORY 02/21/1999 - 02/21/2000 repair left inguinal hernia OTHER SURGICAL HISTORY 02/22/2012 - 02/20/2013 repair umbilical hernia with mesh ESOPHAGOGASTRODUODENOSCOPY [facility] December 2016 Medical History Medical History Date Comments Hx Other Medical Back Surgrey GERD (gastroesophageal reflux disease) Dysphagia frequent solids, liquids Family History * Patient is adopted Medical History Relation Name Comments Heart failure Father Heart failure; Cancer Mother Cancer; Other Other 1 Family history of Cancer - unsure of type; Coronary artery disease Other 2 Fami ly history of Coronary artery disease; Relation Name Status Comments Father Mother Other 1 Other 2 Social History Tobacco Use Types Packs/Day Years Used Date Smoking Tobacco: Never Smokeless Tobacco: Never Tobacco Cessation:Counseling Given: Not Answered Alcohol Use Standard Drinks/Week Comments Yes 0 (1 standard drink = 0.6 oz pur e alcohol) Sex and Gender Information Value Date Recorded Sex Assigned at Not on file 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 Gender Identity Not on file Sexual Orientation Not on file Obstetrics History Last Filed Vital Signs Vital Sign Reading Time Taken Comments Blood Pressure 133/90 11/15/2023 11:32 AM CDT Pulse 85 11/15/2023 11:32 AM CDT Temperature 36.5 ??C (97.7 ??F) 11/15/2023 11:32 AM C DT Respiratory Rate 18 11/15/2023 11:32 AM CDT Oxygen Saturation 94% 11/15/2023 11:32 AM CDT Inhaled Oxygen Concentration - - Weight 116.1 kg (256 lb) 11/15/2023 11:32 AM CDT Height 188 cm (6' 2 ) 11/15/2023 11:32 AM CDT Body Mass Index 32.87 11/15/2023 11:32 AM CDT Plan of Treatment Health Maintenance Due Date Last Done Comments Colon Cancer Screening-Colonoscopy 1968 Depression Screening 1968 Hepatitis C Screening 1968 Prostate Cancer Screening-PSA 1968 Hepatitis B Screening 1986 Regular Well Visit/Exam 18-64 1986 Zoster Vaccine (2 of 2) 08/19/2023 06/24/2023 Influenza Vaccine (#1) 2023 DTaP/Tdap/Td Vaccine (2 - Td or Tdap) 06/23/2033 06/24/2023 Pneumococcal vaccine <65 Aged Out 06/24/2023 No longer eligible based on patient's age to complete this topic Insurance REPLACED BY [facility] ACCESS CHOICE Member Subscriber Plan / Payer (Ef fective 2017-Present) Name:Donnie Haney Relation to Subscriber:Self Name:Donnie Haney Payer ID:[id number] (NAIC) Type:BC ALLIANCE Address: [address] [facility] CIG[employer] Advance Directives For more information, please contact: [phone] * Full Code (Latest Code Status on File) Date Activated Date Inactivated Comments 02/24/2018 10:25 AM 02/24/2018 1:53 PM * Full Code Date Activated Date Inactivated Comments 02/24/2018 10:25 AM 02/24/2018 10:25 AM Care Teams Tip Finisher Relationship Specialty Start Date End Date Deysi Wang NP [address] [place] [address] PCP - General Family Medicine 11/15/23
--- OUTSIDE RECORDS SUMMARY | 2024-03-21 16:16 | XMS_ITS | Clinical Summary ---
Author Organization [facility] Address [facility]. [place], [place] [address] [place] [address] Care Team Providers Care Transportation Worker Name Role Phone Aria Hauser [facility] Primary Care Provider [phone] Allergies Active Allergy Reactions Criticality Noted Date Comments Ibuprofen GI Upset 05/21/2021 Social History Tobacco Use Types Packs/Day Years Used Date Smoking Tobacco: Never Assessed Sex and Gender Information Value Date Recorded Sex Assigned at Not on file Legal Sex Male 4:35 PM CDT Gender Identity Not on file Sexual Orientation Not on file Last Filed Vital Signs Vital Sign Reading Time Taken Comments Blood Pressure 154/100 05/21/2021 4:38 PM CDT Pulse 69 05/21/2021 4:38 PM CDT Temperature 36.5 ??C (97.7 ??F) 05/21/2021 4:38 PM CD T Respiratory Rate 18 05/21/2021 4:38 PM CDT Oxygen Saturation 96% 05/21/2021 4:38 PM CDT Inhaled Oxygen Concentration - - Weight 115.2 kg (254 lb) 05/21/2021 4:38 PM CDT Height 188 cm (6' 2 ) 05/21/2021 4:38 PM CDT Body Mass Index 32.61 05/21/2021 4:38 PM CDT Plan of Treatment Health Maintenance Due Date Last Done Comments Colorectal Cancer Screening Colonoscopy (10 Years) 1968 Annual Physical 09/11/1971 Hepatitis C 1986 DTaP, Tdap and Td Vaccines ( 1 - Tdap) 09/11/1987 Hepatitis B Vaccines (1 of 3 - 19+ 3-dose series) 09/11/1987 Zoster Vaccines (1 of 2) 2018 COVID-19 Vaccine (1 - 2023-2 5 season) 2023 Influenza Adult (#1) 2023 Meningococcal B Vaccine Aged Out No l onger eligible based on patient's age to complete this topic Meningococcal Vaccine Aged Out No paulina apurva eligible based on patient's age to complete this topic Pneumococcal Vaccine: Pediat rics (0 to 5 Years) and At-Risk Patients (6 to 64 Years) Aged Out No longer eligible b ased on patient's age to complete this topic RSV Immunizations Under 20 Months Aged Out No longer eligible based on patient's age to complete this topic Insurance [employer] Care Teams Transportation Worker Relationship Specialty Start Date End Date Aria Hauser FNP-BC PCP - General NURSE PRACTITIONER 05/21/21
--- OUTSIDE RECORDS SUMMARY | 2024-03-21 16:16 | XMS_ITS | Referral Summary ---
Author Organization [facility] Address [address] [place] [address] Care Team Providers Care Operational Intelligence Analyst Name Role Phone Deysi Wang NP Primary Care Provider [phone] Allergies Active Allergy Reactions Criticality Noted Date [...] (02/17/2018): Added automatically from request for surgery [id number] KULDEEP on CPAP 07/07/2013 Overview (05/26/2016): Sleep apnea, obstructive Exomphalos 06/09/2012 Overview (05/28/2016): Umbilical hernia Social History Tobacco Use Types Packs/Day Years Used Date Smoking Tobacco: Never Smokeless Tobacco: Never Tobacco Cessation:Counseling Given: Not Answered Alcohol Use Standard Drinks/Week Comments Yes 0 (1 standard drink = 0.6 oz pur e alcohol) Sex and Gender Information Value Date Recorded Sex Assigned at Not on file 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 Gender Identity Not on file Sexual Orientation [...] 11/15/2023 11:32 AM CDT Plan of Treatment Not on file Insurance [place] [facility] [place] [facility] CIGNA Advance Directives For more information, please contact: [phone] * Full Code (Latest Code Status on File) Date Activated Date Inactivated Comments 02/24/2018 10:25 AM 02/24/2018 1:53 PM * Full Code Date Activated Date Inactivated Comments 02/24/2018 10:25 AM 02/24/2018 10:25 AM Care Teams Operational Intelligence Analyst Relationship Specialty Start Date End Date Deysi Wang NP [address] [place] [address] PCP - General Family Medicine 11/15/23
--- OUTSIDE RECORDS SUMMARY | 2024-03-21 16:16 | XMS_ITS | Clinical Summary ---
Author Organization [facility] Address [address] [facility], [place] [address] Phone Care Team Providers Care Horticultural Manager Name Role Phone Aria Hauser SUPER[employer]OR [employer]ING [employer]MING, [employer] Primary Care Provider Diane Montano APRN, CONCIERGE Unavailable Allergies Active Allergy Reactions Criticality Noted Date Comments Aspirin Nausea 06/08/2018 Reaction: Nausea, , , Ibuprofen Other (see Comments) 05/25/2018 Chest pain Medications pantoprazole (PROTONIX) 40 MG Tablet Delayed Response Take 40 mg by mouth daily. Active celecoxib (CeleBREX) 100 MG Capsule TAKE 1 CAPSULE BY MOUTH TWICE A DAY FOR 90 DAYS 07/13/2022 Active escitalopram (LEXAPRO) 10 MG Tablet TAKE 1 TABLET BY MOUTH EVERY DAY for 90 Active eszopiclone (LUNESTA) 1 MG Tablet nightly as needed. 0 08/13/2022 Active fluticasone (FLONASE) 50 MCG/ACT Suspension daily as needed. 08/16/2022 Active traMADol (ULTRAM) 50 MG Tablet daily as needed. 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 Family History Medical History Relation Name Comments Congestive Heart Failure Father Cancer Mother OVARIAN, BREAST Relation Name Status Comments Father Mother Social History Tobacco Use Types Packs/Day Years Used Date Smoking Tobacco: Never Smokeless Tobacco: Never Tobacco Cessation:Counseling Given: Not Answered Alcohol Use Standard Drinks/Week Comments Yes 0 (1 standard drink = 0.6 oz pur e alcohol) occasional Sexually Active Control Partners Comments Yes Female Sex and Gender Information Value Date Recorded Sex Assigned at Not on file Legal Sex Male 10:55 PM CDT Gender Identity Not on file Sexual Orientation Not on file Last Filed Vital Signs Vital Sign Reading Time Taken Comments Blood Pressure 142/70 09/15/2022 3:13 PM CDT Pulse 90 09/15/2022 3:13 PM CDT Temperature 37.1 ??C (98.7 ??F) 09/15/2022 3:13 PM CD T Respiratory Rate 14 09/15/2022 3:13 PM CDT Oxygen Saturation 94% 09/15/2022 3:13 PM CDT Inhaled Oxygen Concentration - - Weight 117.9 kg (260 lb) 11/02/2022 1:00 PM CDT Height 188 cm (6' 2 ) 11/02/2022 1:00 PM CDT Body Mass Index 33.38 11/02/2022 1:00 PM CDT Plan of Treatment Health Maintenance Due Date Last Done Comments Hepatitis C Virus (HCV) Screening 1968 TdaP Immunization 1968 Hepatitis B Immunization (1 of 3 - 19+ 3-dose series) 09/11/1987 Colonoscopy 2013 Colorectal Cancer Screening 2013 Cologuard 2018 Immunochemical Fecal Occult Blood 2018 Pneumococcal Immunization (5 0+ years) (1 of 1 - PCV) 2018 Zoster Immunization (1 of 2) 2018 PSA Discussion 09/11/2023 Influenza Immunization (#1) 2023 SARS-COV-2 Immunization ( - 2023-25 season) 2023 Respiratory Syncytial Virus (RSV) Immunization (Adult) (1 - 1-dose 75+ series) 09/11/2043 Meningococcal Immunization (ACWY) Aged Out No longer eligible based on patient's age to complete this topic Pneumococcal Immunization Combined Aged Out No longer eligible based on patient's age to complete this topic Rotavirus Immunization Aged Out No lo nger eligible based on patient's age to complete this topic [place] [address] [place] [address] Care Teams Horticultural Manager Relationship Specialty Start Date End Date Aria Hauser APRN, [employer]ER[place] [address] [place] [address] PCP - General Family Medicine 05/28/21 Diane Montano APRN, [employer] [address] [place] [address] Nurse Practitioner Advanced Practice Nurse 09/15/22
--- OUTSIDE RECORDS SUMMARY | 2024-03-21 16:16 | XMS_ITS | Patient Health Summary ---
Author Organization [facility] Address [address] [place] [address] Care Team Providers Care Building Consultant Name Role Phone Unavailable Primary Care Provider Unavailabl e Note from [facility],non-owned Affiliates and Associated Physician Practices is amultiple site organization consisting of ambulatory clinics and hospital sitesin [place], [place], [place] and [place]. This disclosure is being madepursuant to the Care Everywhere program and may not contain all information available regarding this patient. Last updated 17.[facility] Allergies * Aspirin(Nausea and/or Vomiting) -Low Criticality * Ibuprofen(Angioedema,Nausea and/or Vomiting,Palpitations,Other,Vomiting) -High Criticality Medications * Be aware that medications may not be up to date on this document. Alwaysverify current medications with the patient. * Albuterol Sulfate, sensor, (ProAir Digihaler) 108 (90 Base) MCG/ACT AEPB 2 PUFF(S) INHALED Q4-6 HOURS, PRN AND PER THE ASTHMA ACTION PLAN for 30 DAY(S) * celecoxib (CeleBREX) 100 MG capsule(Started 07/13/2022) TAKE 1 CAPSULE BY MOUTH TWICE A DAY FOR 90 DAYS for 20 * vitamin D3 (Cholecalciferol) 125 MCG (5000 UT) capsule TAKE 1 CAPSULE BY MOUTH EVERY DAY FOR 30 DAYS * escitalopram (Lexapro) 10 MG tablet TAKE 1 TABLET BY MOUTH EVERY DAY for 90 * eszopiclone (Lunesta) 1 MG tablet(Started 08/13/2022) nightly as needed. * fluticasone propionate (Flonase) 50 MCG/ACT nasal spray(Started 08/16/2022) 2 spray(s) in each nostril BID for 30 day(s) * lansoprazole (Prevacid) 30 MG capsule 1 cap(s) orally once a day for 30 day(s) * levocetirizine (Xyzal) 5 MG tablet 1 tab(s) orally once a day (in the evening) for 30 day(s) * montelukast (Singulair) 10 MG tablet 1 tab(s) orally once a day for 30 day(s) * pantoprazole EC (Protonix) 40 MG tablet Take 1 (one) tablet by mouth once daily * omeprazole (PriLOSEC) 40 MG capsule Take 1 (one) capsule by mouth daily before breakfast Social History Tobacco Use Types Packs/Day Years Used Date Smoking Tobacco: Never Smokeless Tobacco: Never Tobacco Cessation:Counseling Given: Not Answered Alcohol Use Standard Drinks/Week Comments Yes 6 (1 standard drink = 0.6 oz pur e alcohol) Sex and Gender Information Value Date Recorded Sex Assigned at Not on file Gender Identity Not on file Sexual Orientation Not on file Last Filed Vital Signs Vital Sign Reading Time Taken Comments Blood Pressure - - Pulse - - Temperature - - Respiratory Rate - - Oxygen Saturation - - Inhaled Oxygen Concentration - - Weight 120.7 kg (266 lb) 10/26/2023 7:38 AM CDT Height 188 cm (6' 2 ) 10/26/2023 7:38 AM CDT Body Mass Index 34.15 10/26/2023 7:38 AM CDT Procedures * HI ESOPH FUNCT TST TELLO NASL CATH ELEC PLCMT; PROLNG(Performed 10/26/2023) Performed for Hiatal hernia, Gastroesophageal reflux disease, unspecified whether esophagitis present * HI ESOPHAGUS MOTILITY STUDY(Performed 10/26/2023) Performed for Hiatal hernia, Gastroesophageal reflux disease, unspecified whether esophagitis present
--- OUTSIDE RECORDS SUMMARY | 2024-03-21 16:16 | XMS_ITS | Clinical Summary ---
Author Organization [facility] Address [address] [place] [address] Care Team Providers Care Hand Worker Name Role Phone Unavailable Primary Care Provider Unavailabl e Source Comments [facility],non-owned Affiliates and Associated Physician Practices is amultiple site organization consisting of ambulatory clinics and hospital sitesin [place], [place], [place] and [place]. This disclosure is being madepursuant to the Care Everywhere program and may not contain all information available regarding this patient. Last updated 17.[facility] Allergies Active Allergy Reactions Criticality Noted Date Comments Aspirin Nausea and/or Vomiting Low 06/08/2018 Ibuprofen Angioedema,Nausea an d/or Vomiting,Palpitations,Ot her,Vomiting High 05/25/2018 Chest pain Reaction: Nausea, ??Vomiting, ??, , Medications * Be aware that medications may not be up to date on this document. Alwaysverify current medications with the patient. Medication Sig Dispensed Refills Start Date End Date Status Albuterol Sulfate, sensor, (ProAir Digihaler) 108 (90 Base) MCG/ACT AEPB 2 PUFF(S) INHALED Q4-6 HOURS, PRN AND PER THE ASTHMA ACTION PLAN for 30 DAY(S) Active celecoxib (CeleBREX) 100 MG capsule TAKE 1 CAPSULE BY MOUTH TWICE A DAY FOR 90 DAYS for 20 07/13/2022 Active vitamin D3 (Cholecalciferol) 125 MCG (5000 UT) capsule TAKE 1 CAPSULE BY MOUTH EVERY DAY FOR 30 DAYS Active escitalopram (Lexapro) 10 MG tablet TAKE 1 TABLET BY MOUTH EVERY DAY for 90 Active eszopiclone (Lunesta) 1 MG tablet nightly as needed. 08/13/2022 Activ e fluticasone propionate (Flonase) 50 MCG/ACT nasal spray 2 spray(s) in each nostril BID for 30 day(s) 08/16/2022 Active lansoprazole (Prevacid) 30 MG capsule 1 cap(s) orally once a day for 30 day(s) Active levocetirizine (Xyzal) 5 MG tablet 1 tab(s) orally once a day (in the evening) for 30 day(s) Active montelukast (Singulair) 10 MG tablet 1 tab(s) orally once a day for 30 day(s) Active pantoprazole EC (Protonix) 40 MG tablet Take 1 (one) tablet by mouth once daily Active omeprazole (PriLOSEC) 40 MG capsule Take 1 (one) capsule by mouth daily before breakfast Active Social History Tobacco Use Types Packs/Day Years [...] Mass Index 34.15 10/26/2023 7:38 AM CDT Plan of Treatment Health Maintenance Due Date Last Done Comments COLOGUARD (AGES 45-75) - COL ON CA SCREENING 1968 COLON MONITORING 1968 COLONOSCOPY - COLON CA SCREENING 1968 CT COLONOGRAPHY - COLON CA SCREENING 1968 Colorectal Cancer Screening 1968 FIT - COLON CA SCREENING 1968 FLEX SIG - COLON CA SCREENING 1968 LIPID TESTING 1968 HIV SCREENING 09/11/1983 HEPATITIS C SCREENING 09/06/1986 DTAP/TDAP/TD VACCINES (1 - Tdap) 09/11/1987 HEPATITIS B VACCINE (1 of 3 - 19+ 3-dose series) 09/11/1987 PNEUMOCOCCAL VACCINE 50+ (1 of 1 - PCV) 2018 ZOSTER VACCINE (1 of 2) 2018 COVID-19 VACCINE (2023-2 5 season) 2023 INFLUENZA VACCINE (#1) 2023 DEPRESSION SCREENING 02/22/2024 HIB VACCINE Aged Out No longer eligi ble based on patient's age to complete this topic HPV VACCINE Aged Out No longer eligi ble based on patient's age to complete this topic MENINGOCOCCAL (Group B) VACCINE Aged Out No longer eligible based on patient's age to complete this topic MENINGOCOCCAL VACCINE Aged Out No paulina apurva eligible based on patient's age to complete this topic PNEUMOCOCCAL VACCINE Aged Out No long er eligible based on patient's age to complete this topic DONNIE QUINONES Personal/Family [address] [place] [address] DONNIE QUINONES Personal/Family [address] [place] [address]
--- OUTSIDE RECORDS SUMMARY | 2024-03-21 16:16 | XMS_ITS | Patient Health Record ---
Author Organization [facility] Address [address] [place] [id number] Care Team Providers Care Manufacturing Lead Name Role Phone Murtaza Aria GARZA Primary Care Provider Unav gal Kyra [place] Unavailable [phone] [employer], Provider Unavailable Unavailab le Allergies Allergen (clinical drug ingredient) Drug/Non Drug Allergy documented on EMR Reaction Allergy Type Onset Date Status ibuprofen Ibuprofen angioedema Drug Allergy Active Reason For Referral No Information Medications Medication SIG (Take, Route, Frequency, Duration) Notes Start Date End Date Status MONTELUKAST 10 mg 1 tab(s) orally once a day for 30 day(s) Active FLUTICASONE NASAL 50 mcg/inh 2 spray(s) in each nostril BID for 30 day(s) Active LEVOCETIRIZINE 5 mg 1 tab(s) orally once a day (in the evening) for 30 day(s) Active CELECOXIB 100 mg TAKE 1 CAPSULE BY MOUTH TWICE A DAY FOR 90 DAYS for 20 Active Celecoxib 100 MG TAKE 1 CAPSULE BY MOUTH TWICE A DAY FOR 90 DAYS for 20 Active Escitalopram Oxalate 10 MG TAKE 1 TABLET BY MOUTH EVERY DAY for 90 Active LANSOPRAZOLE 30 mg 1 cap(s) orally once a day for 30 day(s) Active Lansoprazole 30 MG 1 cap(s) orally once a day for 30 day(s) Active ESCITALOPRAM 10 MG TAKE 1 TABLET BY MOUTH EVERY DAY for 90 Active PROAIR HFA 90 MCG/INH 2 PUFF(S) INHALED EVERY 6 HOURS *Please review for potential replacement for e-prescription and drug interaction check* Active Levocetirizine Dihydrochloride 5 MG 1 tab(s) orally once a day (in the evening) for 30 day(s) Active Fluticasone Propionate 50 MCG/ACT 2 spray(s) in each nostril BID for 30 day(s) Active Montelukast Sodium 10 MG 1 tab(s) orally once a day for 30 day(s) Active PROAIR HFA 90 MCG/INH 2 PUFF(S) INHALED Q4-6 HOURS, PRN AND PER THE ASTHMA ACTION PLAN for 30 DAY(S) *Please review for potential replacement for e-prescription and drug interaction check* Active Social History Tobacco Use: Social History Observation Description Date Details (start date - stop date) Never Smoker NA - NA Smoking Smart Form: Question Answer Notes Are you a: never smoker Problems Problem Type SNOMED Code ICD Code Onset Dates Problem Status W/U Status Risk Notes Problem Hyperlipidemia (95241447) Hyperlipidemia, unspecified (E78.5) Active confirmed Problem Anxiety disorder (126025824) Anxiety disorder, unspecified (F41.9) Active confirmed Problem Chronic allergic conjunctivitis (37630577) Other chronic allergic conjunctivitis (H10.45) Active confirmed Problem Allergic rhinitis caused by pollen (disorder) (07132325) Allergic rhinitis due to pollen (J30.1) Active confirmed Problem Allergic rhinitis (05506833) Other allergic rhinitis (J30.89) Active confirmed Problem Allergic contact dermatitis due to plants, except food (L23.7) Active confirmed Problem Allergic rhinitis caused by animal hair and dander (423940971223671) Allergic rhinitis due to animal (cat) (dog) hair and dander (J30.81) Active confirmed Problem Chronic cough (32741187) Chronic cough (R05.3) Active confirmed Encounters Encounter Location Date Provider Diagnosis [address] [address] 08/06/2023 Provider BRET-Ruby Allergic rhinitis due to pollen J30.1 and Chronic cough R05.3 Assessments Encounter Date Diagnosis (ICD Code) Assessment Notes Treatment Notes Treatment Clinical Notes Section Notes 08/06/2023 Allergic rhinitis due to pollen (ICD-10 - J30.1) 08/06/2023 Chronic cough (ICD-10 - R05.3) Plan Of Treatment No Information Insurance Providers Payer Name Payer Address Payer Phone Subscriber Number Group Number Insured Name Patient Relationship to Insured Coverage Start Date Coverage End Date [employer] [address] Jimy baum, [place] [id number] [phone] [id number] Donnie Haney Self - patient is the insured Medical (General) History Medical History History ICD Code Anxiety disorder, unspecified F41.9 Hyperlipidemia, unspecified E78.5 Surgical History Surgery Date(Month/Year) deviated septum repair 2021
--- OUTSIDE RECORDS SUMMARY | 2024-03-21 16:16 | XMS_ITS | Referral Summary ---
Author Organization [facility] [employer] Address [address] [place] [address] Care Team Providers Care Roller Structural [employer] Name Role Phone Unavailable Primary Care Provider Unavailabl e Source Comments [facility],non-owned Affiliates and Associated Physician Practices is amultiple site organization consisting of ambulatory clinics and hospital sitesin [place], [place], [place] and [place]. This disclosure is being madepursuant to the Care Everywhere program and may not contain all information available regarding this patient. Last updated 17.[facility] [employer] Allergies Active Allergy Reactions Criticality Noted Date [...] 10/26/2023 7:38 AM CDT Plan of Treatment Not on file RIVERA QUINONES Personal/Family [address] [place] [address] RIVERA QUINONES Personal/Family [address] [place] [address]
--- OUTSIDE RECORDS SUMMARY | 2024-03-21 16:16 | XMS_ITS ---
Author Organization [facility] Address [address] [place] [address] Care Team Providers Care Legal Internship Name Role Phone Aria Head Primary Care Provider Unav gal KelloggmYaneli Unavailable [phone] [employer], Provider Unavailable Unavailab le Allergies Allergen (clinical drug ingredient) Drug/Non Drug Allergy documented on EMR Reaction Allergy Type Onset Date Status ibuprofen Ibuprofen angioedema Drug Allergy [facility] Encounter Medications Medication SIG (Take, Route, Frequency, Duration) Notes Start Date End Date Status Escitalopram Oxalate 10 MG TAKE 1 TABLET BY MOUTH EVERY DAY for 90 Active Lansoprazole 30 MG 1 cap(s) orally once a day for 30 day(s) Active PROAIR HFA 90 MCG/INH 2 PUFF(S) INHALED EVERY 6 HOURS *Please review for potential replacement for e-prescription and drug interaction check* Active Fluticasone Propionate 50 MCG/ACT 2 spray(s) in each nostril BID for 30 day(s) Active Montelukast Sodium 10 MG 1 tab(s) orally once a day for 30 day(s) Active Celecoxib 100 MG TAKE 1 CAPSULE BY MOUTH TWICE A DAY FOR 90 DAYS for 20 Active Levocetirizine Dihydrochloride 5 MG 1 tab(s) orally once a day (in the evening) for 30 day(s) Active PROAIR HFA 90 MCG/INH 2 PUFF(S) INHALED Q4-6 HOURS, PRN AND PER THE ASTHMA ACTION PLAN for 30 DAY(S) *Please review for potential replacement for e-prescription and drug interaction check* Active Encounters Encounter Location Date Provider Diagnosis [facility] - [place] [address] [place] [address] 08/06/2023 Provider [employer] Allergic rhinitis due to pollen J30.1 and Chronic cough R05.3 Assessments Encounter Date Diagnosis (ICD Code) Assessment Notes Treatment Notes Treatment Clinical Notes Section Notes 08/06/2023 Allergic rhinitis due to pollen (ICD-10 - J30.1) 08/06/2023 Chronic cough (ICD-10 - R05.3) Plan Of Treatment Medication Medication Name Sig Start Date Stop Date Notes Fluticasone Propionate 50 MCG/ACT 2 spray(s) in each nostril BID for 30 day(s) Montelukast Sodium 10 MG 1 tab(s) orally once a day for 30 day(s) Levocetirizine Dihydrochloride 5 MG 1 tab(s) orally once a day (in the evening) for 30 day(s) PROAIR HFA 90 MCG/INH 2 PUFF(S) INHALED Q4-6 HOURS, PRN AND PER THE ASTHMA ACTION PLAN for 30 DAY(S) *Please review for potential replacement for e-prescription and drug interaction check* Progress Notes * Donnie QUINONESDOB:1970 ( 53 yo M)Acc No.[id number]:08/06/2023 Patient:?Donnie QUINONES Provider:?Provider Migration :1970???Age:52 Y???Sex:Male Mo e:08/06/2023 Address:[address] [place], [place] [id number] Pcp:GREG Tom Subjective: * Chief Complaints: * ???1. [facility] To [facility] Con version Encounter. * Medical History:? * Medications:?Taking PROAIR H FA 90 MCG/INH AEROSOL 2 PUFF(S) INHALED EVERY 6 HOURS , Notes to Pharmacist: *Please review for potential replacement for e-prescription and drug interaction check*, Taking Lansoprazole 30 MG Capsule Delayed Release 1 cap(s) orally once a day , Taking Escitalopram Oxalate 10 MG Tablet TAKE 1 TABLET BY MOUTH EVERY DAY , Taking Celecoxib 100 MG Capsule TAKE 1 CAPSULE BY MOUTH TWICE A DAY FOR 90 DAYS * Allergies:?Ibuprofen: angioe bob. Objective: * Vitals:? Assessment: * Assessment: 1.?Allergic rhinitis due to pollen - J30.1 (Primary)???2.?Chronic cough - R05.3??? Plan: * Treatment: 2.?Chronic cough? Start PROAIR HFA AEROSOL, 90 MCG/INH, 2 PUFF(S), INHALED, Q4-6 HOURS, PRN AND PER THE ASTHMA ACTION PLAN, 30 DAY(S), 1, Refills 1, Notes to Pharmacist: *Please review for potential replacement for e-prescription and drug interaction check*.?? * Billing Information: * Visit Code:? * Procedure Codes:? * Electronic signature of Louise QUEEN-Migration on 03/21/2024 at 04:16 PM RECORDINGS LIBRARIAN Sign off status: Pending * Provider:?Provider Migration Date:?08/05 Generated for Paulo smith/Myriam/Guysmitting on:?03/21/2024 04:16 PM RECORDINGS LIBRARIAN
--- OUTSIDE RECORDS SUMMARY | 2024-03-21 16:17 | XMS_ITS | Data Portability ---
Author Organization [facility], Main Office Address [address] [place] [address] Assessment No assessment recorded. Plan of Treatment Reminders Order Date Submit Date Provider Last Modified By Organization Details Last Modified Time Details Appointments None recorded. Lab None recorded. Referral None recorded. Procedures None recorded. Surgeries None recorded. Imaging None recorded. Medication Orders cefdinir 300 mg capsule 2022 023 [place] [address] [place], [address], 3 16:39:46 Medrol (Rian) 4 mg tablets in a dose pack 2022 023 [place] [address], [place], [address], 3 16:39:46 Patient TargetsNo targets recorded. Patient InstructionsNo instructions recorded. Reason for Referral None Reported. Results Created Date Observation Date Name Description Value Unit Range Abnormal Flag Note LastModifiedBy Organization Detail LastModifiedTime 06/28/19 21 06/27/2020 SARS CoV 2 RNA (COVI D-19) , QL, emergency department clinician-P CR, respi rator y speci men covid-19 RNA negati ve This test has been autho rized by the FDA under an Emerg ency Use Autho rizat ion (EUA) for use by autho rized labor atori es. Negat linda resul ts shoul d be treat ed as presu mptiv e and, if incon siste nt with clini shelia signs and sympt oms neces saleem for patie nt manag ement , shoul d be teste d with diffe rent autho rized or clear ed molec ular tests . Negat linda resul ts do not precl ude SARS- Co-V- 2 infec tion and shoul d not be used as the sole basis for patie nt manag ement decis ions. Negat linda resul ts shoul d be consi dered in the gretel xt of a patie nt's recen t expos ures, histo ry and the prese nce of clini shelia signs and sympt oms consi stent with COVID -19. Junaid e constanza w the Fact Sheet s for healt h care provi ders and patie nts at [facility] te: https ://gl oalpo into care. abbot t/en/ produ ct-de tails /id-n ow-co vid-1 9.htm l Metho dolog y: Isoth ermal Nucle ic Acid Ampli ficat ion Not Available [facility] (Lab) [address] [place], [address], 06/27/2020 12:27:37 06/28/19 21 06/27/2020 potas sium, serum or plasm a potassium 4.5 mmol/ L 3.5-5. 1 Not Available [facility] (Lab) [address] [place], [address], 06/27/2020 12:11:38 06/28/19 21 06/27/2020 plate lets, auto, blood platelets 302 x10'3 /uL 150-40 0 Not Available [facility] (Lab) [address] [place], [address], 06/27/2020 11:14:51 06/28/19 21 06/27/2020 hemog lobin + hemat ocrit , blood hemoglobin 14.1 g/dL 13.2-1 7.0 Not Available [facility] (Lab) [address] [place], [address], 06/27/2020 11:13:47 06/28/19 21 06/27/2020 hemog lobin + hemat ocrit , blood hematocrit 44.5 % 39.3-5 0.0 Not Available [facility] (Lab) [address] [place], [address], 06/27/2020 11:13:47 06/25/19 21 06/24/2020 audio gram + tympa patricia meza No observ ation record ed. [id number] [facility] [place], [address], 04/21/2022 22:41:22 Result Notes None recorded. Problems Name Problem SNOMED Code Status Onset Date Resolution Date Notes Provider Name and Address Organization Details Recorded Time Chronic sinusitis 98456780 Active 023 Beverly Bahena RN [facility], [facility] [employer] [facility] 16:35:24 Notes:Medical History: Posit ional vertigo Bilateral sensorineural hearing loss 2097-1104 Hz Rhinitis Deviated nasal septum Obesity Problem Notes None recorded. Procedures Surgical History Date Name Laterality Status Provider Name and Address Organization Details Recorded Time 07/01/19 21 SEPTOPLASTY (SURG) completed Not Available [facility] 04/21/2022 22:41:20 hernia repair completed Not Available [facility] 04/21/2022 22:40:27 Back Surgery completed Not Available [facility] 04/21/2022 22:40:27 Knee Surgery completed Not Available [facility] 04/21/2022 22:40:27 hernia repair completed Not Available [facility] 04/21/2022 22:40:27 Imaging Results Imaging Date Name Status LastModified by [facility] Details LastModified Time 06/24/2020 audiogram + tympanogram completed [id number] [facility] [place], [address], 04/21/2022 22:41:22 Procedure Notes None recorded. Medical Equipment None Reported. Allergies Allergen ID Allergen Name Allergen Category Reaction Reaction Severity Criticality Documentation Date Start Date Code Code System Note Provider Name and Address Organization Details Recorded Time 35494 Non-stero idal anti-infl ammatory agent (product) medicatio n Not available Not available Not available 04/21/2022 73121 005 SNOMED Not Available [facility] 3 22:41:17 Medications Name Sig Start Date Stop Date Status Note LastModified by Organization Details LastModified Time doxycycline hyclate 100 mg capsule TAKE 1 CAPSULE BY MOUTH TWICE A DAY 05/14 completed Not Available Not Available Not Available azithromycin 250 mg tablet TAKE 2 TABLETS BY MOUTH TODAY, THEN TAKE 1 TABLET DAILY FOR 4 DAYS 11/15 completed Not Available Not Available Not Available hydrocodone 5 mg-acetamino phen 325 mg tablet TAKE 1 TABLET BY MOUTH EVERY 4 TO 6 HOURS NEEDED FOR PAIN 06/19 completed Not Available Not Available Not Available Medrol (Rian) 4 mg tablets in a dose pack Take 1 dose pk by oral route as directed . 2022 active Not Available Not Available Not Avai lable prednisone 20 mg tablet TAKE 3 TABLETS BY MOUTH ONCE DAILY FOR 5 DAYS THEN TAKE 2.5 TABS DAILY FOR 5 DAYS THEN TAKE 2 TABS BY MOUTH DAILY FOR 5 DAYS THEN TAKE 1.5 T 05/14 completed Not Available Not Available Not Available acetaminophe n 300 mg-codeine 30 mg tablet TAKE 1 TABLET BY MOUTH EVERY 6 TO 8 HOURS WITH FOOD NEEDED FOR PAIN 05/14 completed Not Available Not Available Not Available ciprofloxaci n 500 mg tablet TAKE 1 TABLET BY MOUTH TWICE A DAY 06/19 completed Not Available Not Available Not Available tramadol 50 mg tablet TAKE 1 TABLET BY MOUTH EVERY 8 HOURS FOR 7 DAYS active Not Available Not Available No t Available cefadroxil 500 mg capsule TAKE 1 CAPSULE BY MOUTH TWICE A DAY 05/19 completed Not Available Not Available Not Available baclofen 10 mg tablet TAKE 1 TABLET 3 TIMES A DAY BY ORAL ROUTE NEEDED. active Not Available Not Available No t Available hydrocodone 7.5 mg-acetamino phen 325 mg tablet 05/19 completed Not Available Not Available Not Available bupropion HCl 75 mg tablet TAKE 1 TABLET BY MOUTH EVERY DAY active Not Available Not Available No t Available budesonide 0.5 mg/2 mL suspension for nebulization POUR 1 VIAL IN NASAL SALINE RINSE 2X DAILY FOR 30 DAYS 05/19 completed Not Available Not Available Not Available azelastine 137 mcg (0.1 %) nasal spray SPRAY 2 SPRAYS IN EACH NOSTRIL TWICE A DAY 05/19 completed Not Available Not Available Not Available celecoxib 100 mg capsule TAKE 1 CAPSULE BY MOUTH TWICE A DAY FOR 90 DAYS active Not Available Not Available No t Available cefdinir 300 mg capsule Take 1 capsule every 12 hours by oral route. 2022 active Not Available Not Available Not Avai lable fluticasone propionate 50 mcg/actuatio n nasal spray,suspen thai 05/19 completed Not Available Not Available Not Available amoxicillin 875 mg-potassium clavulanate 125 mg tablet TAKE 1 TABLET BY MOUTH EVERY 12 HOURS FOR 10 DAYS 06/19 completed Not Available Not Available Not Available escitalopram 10 mg tablet TAKE 1 TABLET BY MOUTH EVERY DAY active Not Available Not Available No t Available ezetimibe 10 mg tablet TAKE 1 TABLET BY MOUTH EVERY DAY active Not Available Not Available No t Available Vitals Date Recorded Body mass index (BMI) Body height Body temperature Body weight Provider Name and Address Organization Details Last Updated DateTime 05/14/2020 33 kg/m2 187.96 cm 98 [degF] 403269.2 4 g Not Available [facility] 04/21/2022 22:40:41 Date Recorded Body mass index (BMI) Body height Body temperature Body weight Provider Name and Address Organization Details Last Updated DateTime 06/03/2020 32.7 kg/m2 187.96 cm 97.2 [degF] 881904.0 5 g Not Available [facility] 04/21/2022 22:40:42 Date Recorded Body mass index (BMI) Body height Body temperature Body weight Provider Name and Address Organization Details Last Updated DateTime 06/19/2020 32.7 kg/m2 187.96 cm 97.5 [degF] 901886.0 5 g Not Available [facility] 04/21/2022 22:40:42 Date Recorded Body weight Body mass index (BMI) Body height Body temperature Provider Name and Address Organization Details Last Updated DateTime 05/20/2022 261577.63 g 34.5 kg/m2 187.96 cm 97.6 [degF] Beverly Bahena RN [place] [employer] [facility] 05/20/2022 16:20:57 Date Recorded Body height Body mass index (BMI) Body weight Body temperature Provider Name and Address Organization Details Last Updated DateTime 11/15/2022 187.96 cm 34.7 kg/m2 735307.94 g 97.8 [degF] Beverly Bahena RN [place] [facility] [employer] 11/15/2022 16:24:33 Social History Question Answer Notes LastModified by Organizat ion Details LastModified Time Tobacco Smoking Status Never Smoker Not Available [facility] 04/21/2022 22:40:24 What Is Your Level Of Alcohol Consumption? Occasional [id number] Information not available 04/21/2022 In The 14 Days Before Symptom Onset, Have You Had Close Contact With A Laboratory-confirm ed COVID-19 While That Case Was Ill? No [id number] Information not available 04/21/2022 In The 14 Days Before Symptom Onset, Have You Had Close Contact With A Person Who Is Under Investigation For COVID-19 While That Person Was Ill? No [id number] Information not available 04/21/2022 Sex: Unknown Functional Status None recorded. Mental Status None recorded. Family History Relationship Description Onset Age of this Age Resolved Age Notes LastModified by Organization Details LastModified Time Father No current problems or disability [email or web address] Not available 11/15 16:25:55 Mother No current problems or disability [email or web address] Not available 11/15 16:25:55 Medical History Condition Response SLEEP APNEA N MRSA N ALLERGIES/HAYFEVER N OTHER # 1 N LUNG DISEASE/DISORDER N INSOMNIA N RADIATION / CHEMOTHERAPY N COPD N HIGH CHOLESTEROL / HYPERLIPIDEMIA N Other # 2 N HYPERTHYROIDISM N BLOOD DISEASES N NEUROLOGICAL PROBLEMS N SURGERY N EAR OR HEARING PROBLEMS N HYPOTHYROIDISM N DEPRESSION (INCLUDING POST ) N HAVE YOU BEEN HOSPITALIZED OR SEEN IN [facility] ER IN THE PAST YEAR ? N STROKE/TIA N ULCERS N OBESITY N ANEURYSM N HISTORY WITH COMPLICATIONS WITH ANESTHES IA ? N USE OF BLOOD THINNERS N NO SIGNIFICANT PAST MEDICAL HISTORY N DIABETES, TYPE N PARATHYROID DISEASE N ENT N SEASONAL ALLERGIES N HEARTBURN / REFLUX Y HEPATITIS / LIVER DISEASE N SLEEP DISORDER N HEADACHES/MIGRAINES N SEIZURES/EPILEPSY N CHF N PACEMAKER N DIZZINESS Y AIDS/HIV N FRACTURES N HYPERTENSION N CANCER: SPECIFY N BLOOD TRANSFUSION N ANESTHESIA COMPLICATIONS N ANEMIA/BLOOD DISORDER N CHRONIC EAR INFECTIONS N TUBERCULOSIS N Past Encounters Encounter ID Performer Location Encounter Start Date Encounter Closed Date Diagnosis/Indication Diagnosis SNOMED-CT Code Diagnosis ICD10 Code Diagnosis Note [id number] [facility] [place] [address] [place] [address] 05/14/2020 00:00:00 05/14/2020 11:47:27 [id number] [facility] [place] [address] [place] [address] 06/03/2020 00:00:00 06/03/2020 11:36:25 [id number] [facility] [place] [address] [place] [address] 06/19/2020 00:00:00 06/19/2020 11:49:57 [id number] MD [facility] [place] [address] [place] [address] 05/20/2022 16:15:18 05/20/2022 16:44:00 Chronic sinusitis 69012545 J32.9 [id number] Martinez Worthington MD [facility] [place] [address] [place] [address] 11/15/2022 15:45:18 11/16/2022 13:27:52 Chronic sinusitis 96749864 J32.9 Health Concerns Section Related Observation LastModified by Organization Detai ls LastModified Time None Recorded Concern Status LastModified by Organization Details LastModified Time None Recorded Advance Directives Directive None Recorded Payers Encounter Date Sequence Insurance Name Policy Number Policy Paulino Covered Member ID Paulino Member ID Guarantor Name 05/20/2022 1 [facility] [id number] Donnie Quiñonesge [id number] Donnie Haney 11/15/2022 1 [employer] - [employer] (PPO) [id number] Donnie Rios Mugge [id number] Donnie Haney Notes Date Note Type Note Provider Name and Address Organization Details Recorded Time 05/20/2022 text/html this patient had a septoplasty and turbinate reduction 2 years ago and now has symptoms consistent with chronic sinusitis he has drainage shortness of breath and a chronic cough. He is not on antibiotics currently. He is having a barium swallow next week for persistent dysphagia. Martinez Worthington MD [address], [place], [address], [facility] [employer] [facility] [employer] [facility] 05/20/2022 16:40:40 11/15/2022 text/html this patient has been having a 6 month history of bilateral ear drainage vertigo and sinus congestion. He was allergy tested and was found to have numerous allergies and is currently on Xyzal. He feels facial pressure and headaches. Martinez Worthington MD [address], [place], [address], [facility] [employer] [facility] [employer] [facility] 11/15/2022 16:40:03
--- OUTSIDE RECORDS SUMMARY | 2024-03-21 16:17 | XMS_ITS ---
Author Organization [facility] Address [address] [place] [address] Care Team Providers Care Photo Printer Name Role Phone Aria Head Primary Care Provider Unav Yaneli Perez Unavailable [phone] REASON FOR VISIT Chronic upper airway symptoms concerning for uncontrolled atopic disease Medications Medication SIG (Take, Route, Frequency, Duration) Notes Start Date End Date Status MONTELUKAST 10 mg 1 tab(s) orally once a day for 30 day(s) Active PROAIR HFA 90 mcg/inh 2 puff(s) inhaled Q4-6 hours, PRN and per the asthma action plan for 30 day(s) Active FLUTICASONE NASAL 50 mcg/inh 2 spray(s) in each nostril BID for 30 day(s) Active LEVOCETIRIZINE 5 mg 1 tab(s) orally once a day (in the evening) for 30 day(s) Active Encounters Encounter Location Date Provider Diagnosis [facility] [address] [place] [address] 09/23/2022 Yaneli Oquendo Allergic rhinitis du e to pollen J30.1 ; Allergic contact dermatitis due to plants, except food L23.7 ; Chronic cough R05.3 ; Allergic rhinitis due to animal (cat) (dog) hair and dander J30.81 ; Other allergic rhinitis J30.89 and Other chronic allergic conjunctivitis H10.45 Assessments Encounter Date Diagnosis (ICD Code) Assessment Notes Treatment Notes Treatment Clinical Notes Section Notes 09/23/2022 Allergic rhinitis due to pollen (ICD-10 - J30.1) Given the history and symptoms, skin testing was performed to common aeroallergens to determine atopic status. Donnie clearly suffers from atopic disease based upon our skin testing and clinical history. Accordingly, we have introduced a new, aggressive medication regimen, discussed nasal washes and allergy-specific avoidance measures. We also discussed adjunctive therapies including subcutaneous, specific allergen immunotherapy as relates to the treatment and prevention of atopic disease. He is currently considering the risks, benefits and alternatives to this care. Risks: bleeding, infection, allergic reaction, anaphylaxis; Benefits: reduced need for medications, improved symptoms, disease modification. Alternatives: watch/wait, change medication regimen, improve allergy avoidance measures. Follow-up in 1 month for interval evaluation and management 09/23/2022 Allergic contact dermatitis due to plants, except food (ICD-10 - L23.7) appears to be healing well, recommend continuing steroids per prescription 09/23/2022 Chronic cough (ICD-10 - R05.3) Spirometry today is normal. Start a trial of albuterol 09/23/2022 Allergic rhinitis due to animal (cat) (dog) hair and dander (ICD-10 - J30.81) Follow allergen avoidance, meds and consider SCIT as an adjunctive treatment to current regimen 09/23/2022 Other allergic rhinitis (ICD-10 - J30.89) Follow allergen avoidance, meds and consider SCIT as an adjunctive treatment to current regimen 09/23/2022 Other chronic allergic conjunctivitis (ICD-10 - H10.45) Given ocular signs and symptoms I encouraged allergy avoidance measures and meds as above. If symptoms persist, consider adding additional medications including intraocular antihistamine/mas t cell stabilizer, PRN Plan Of Treatment Medication Medication Name Sig Start Date Stop Date Notes MONTELUKAST 10 mg 1 tab(s) orally once a day for 30 day(s) PROAIR HFA 90 mcg/inh 2 puff(s) inhaled Q4-6 hours, PRN and per the asthma action plan for 30 day(s) FLUTICASONE NASAL 50 mcg/inh 2 spray(s) in each nostril BID for 30 day(s) LEVOCETIRIZINE 5 mg 1 tab(s) orally once a day (in the evening) for 30 day(s) Treatment Notes Assessment Notes Allergic rhinitis due to pollen Given th e history and symptoms, skin testing was performed to common aeroallergens to determine atopic status. Donnie clearly suffers from atopic disease based upon our skin testing and clinical history. Accordingly, we have introduced a new, aggressive medication regimen, discussed nasal washes and allergy-specific avoidance measures. We also discussed adjunctive therapies including subcutaneous, specific allergen immunotherapy as relates to the treatment and prevention of atopic disease. He is currently considering the risks, benefits and alternatives to this care. Risks: bleeding, infection, allergic reaction, anaphylaxis; Benefits: reduced need for medications, improved symptoms, disease modification. Alternatives: watch/wait, change medication regimen, improve allergy avoidance measures. Follow-up in 1 month for interval evaluation and management Allergic contact dermatitis due to plants, except food appears to be healing well, recommend continuing steroids per prescription Chronic cough Spirometry today is normal. Start a trial of albuterol Allergic rhinitis due to ani mal (cat) (dog) hair and dander Follow allergen avoidance, meds and consider SCIT as an adjunctive treatment to current regimen Other allergic rhinitis Follow allergen avoidance, meds and consider SCIT as an adjunctive treatment to current regimen Other chronic allergic conjunctivitis Gi marisol ocular signs and symptoms I encouraged allergy avoidance measures and meds as above. If symptoms persist, consider adding additional medications including intraocular antihistamine/mast cell stabilizer, PRN Next Appt Details Follow Up: 4 Weeks, Reason: Evaluation and Management Progress Notes * Donnie QUINONESDOB:1970 ( 53 yo M)Acc No.[id number]:09/23/2022 Progress Notes Patient:?Donnie QUINONES Provider:?Yaneli Oquendo MD :1970???Age:52 Y???Sex:Male Mo e:09/23/2022 Address:[address] [place], [place] [id number] Pcp:GREG Tom Subjective: * Chief Complaints: * ???1. Chronic upper airway s ymptoms concerning for uncontrolled atopic disease. * HPI: ???*Introduction:?I had the pleasure of seeing?Donnie Quinones, a 51 year old with anxiety and hyperlipidemia presenting for evaluation of congestion and rhinorrhea. ?He reports frequent congestion and rhinorrhea. He also reports eye and ear itching. No history of recurrent otitis or sinusitis. No decrease in sense of smell. Sinus surgery was peformed last year by Dr. Worthington for deviated septum. Improvement in breathing through his nose since surgery. He is using Flonase on a prn basis and Claritin D. Triggers include animals, Spring weather. He wheezes at night. He uses albuterol about once a month with wheezing. ?He is scheduled to see a GI physician later this month due to food becoming stuck. He has GERD and takes OTC lansoprazole. ?He is currently taking steroids for poison darlin. ?He has never undergone allergy skin testing or received allergy immunotherapy.? He denies a history of physician-diagnosed allergic rhinitis, otitis media, recurrent pneumonia, asthma/RAD, eczema, food allergies, urticaria/angioedema, medication allergies, contact dermatitis, latex allergy, eosinophilic esophagitis or stinging insect hypersensitivity.?*Allergic Rhinoconjunctivitis:?Allergic rhinitis?Do you have or suspect you have allergic rhinitis (itchy eyes, sneezing, congestion or runny nose triggered by allergies)??Yes ?Which areas and what symptoms are involved? Please fill out each section below as needed.?eyes,nose,sinuses ?Which of the following trigger your allergic rhinitis symptoms??exercise,tree pollen,grass pollen,weed pollen,sinus infections,house cleaning (dusting or vacuuming),mold,damp or musty areas,colds or flu,air pollution,spring (season),fall (season),cats,dogs ?Do you have any of the following other symptoms associated with your allergic rhinitis??loud snoring,restless sleep ?Eyes?Specific affected area:?both (bilateral) ?Occurence??intermittent ?How frequent??infrequent ?When does this mostly occur??anytime ?Symptoms:?itching,watering,swelling of the lids ?Effective treatments:?oral antihistamines (Zyrtec or Rashmi or Claritin),oral steroids (Prednisone or Medrol) ?Ears?Specific affected area:?both (bilateral) ?How often??intermittent ?Symptoms:?plugged,discharge ?Nose?Specific area affected:?both (bilateral) ?Occurence??intermittent ?How frequent??infrequent ?When does this mostly occur??anytime ?Symptoms??itching,congestion,postnasal drainage,sinus infection,awaken very congested in the a.m. ?Effective treatments??oral antihistamines (Zyrtec or Rashmi or Claritin),nasal steroid sprays (Flonase or Nasonex or Veramyst) ?Sinuses?Do you have sinus pain??No ?Have you lost sense of taste??No ?Have you been treated with antibiotics for sinusitis??No ?Have any of the following treatments improved your sinus symptoms??no treatment to date ?Have you ever had a CT scan or xray??No ?Have you ever undergone sinus surgery??Yes ?Where??Other hospital ?When??07/2021 ?Cough?Frequency:?infrequent ?Is cough more bothersome during night??No ?Is phlegm produced??No ???*Asthma:?Cough?Do you have a recurrent cough??No ?Wheezing?Do you have recurrent wheezing or a history of wheezing sometime in your life??Yes ?Approximately, when did it start??02/2021 ?Approximately, when did you last wheeze??07/2019 ?Did you have symptoms of asthma as a child??Yes ?Did you have frequent respiratory infections as a child??No ?Were you ever hospitalized in the first 12 months of life for a respiratory infection in childhood??No ?Do you still have wheezing??Yes ?How often do you get it??weekly ?Is your wheezing changing??same ?List months when wheezing is worse:?May,June,Yana,August ?What triggers your wheezing??exercise,tree pollen,grass pollen,weed pollen,cold air,sinus infections,house dusting or vacuuming,cats,dogs ?Do you take an inhaled, rescue bronchodilator medication??Yes ?Name:?Albuterol ?Is your bronchodilator used daily??No ?How often??less than once per month ?When was your last dose of an inhaled bronchodilator??past few months ?Have you taken oral steroids (Prednisone or Medrol) in the past??Yes ?How many times throughout your entire life??5 ?How many times in the last year??1 ?Nocturnal Symptoms?Do you have any of the following respiratory symptoms at night??wheezing or feeling of chest tightness ?Physical Performance?How many blocks can you walk? (Enter 99 for unlimited)?99 ?How many flights of stairs can you climb without stopping? (Enter 99 for unlimited)?20 ?If there are limitations, what symptoms limit further activity??cough,shortness of breath ?Effective treatments for cough and or wheezing?Rescue inhaler or nebulizer treatment:?Albuterol ???*Infections:?Vaccination History?For children, are childhood vaccines up to date:?Yes ?Have you ever had a flu shot??No ?Have you ever had a pneumococcal vaccine (LZA-Nyirnsw-Xkedjnjsf)??No ?Have you ever had a tetanus vaccine (CBpf-Rvfn-Rb)??Yes ?Date of last tetanus vaccine??08/05/2014 ?Ear Infections?Do you have frequent ear infections??No ?Sinus Symptoms and Surgery?Do you have chronic or recurrent sinus symptoms??No ?Do you have sinus pain??No ?Do you have a loss of sense of taste??No ?Have you used any of the following treatments for your sinuses??nasal spray decongestants,oral antihistamines,oral decongestants ?Which provided benefit??oral antihistamines ?Have you ever had a sinus CT or X-Ray??No ?Have your ever undergone sinus surgery??No ?Bronchitis History?Do you get frequent bronchitis??No ?Pneumonia History?Have you ever had pneumonia or recurrent pneumonia??No ?Skin and Other Infections?Do you get frequent skin infections (cellulitis)??No ?Do you get any other frequent infections??No ???*Other Rash and Contact Dermatitis:?Other rashes and contact dermatitis?Have you ever had any other form of rash or contact dermatitis??No ???*Atopic dermatitis:?Atopic dermatitis - Eczema?Do you have chronic or recurrent atopic dermatitis or eczema??No ???*Urticaria:?Urticaria (hives)?Do you have recurrent hives??No ???*Medication allergy:?Medication Allergy?Do you feel you are allergic to any medications??No ?What symptom(s) did the medication cause??shortness of breath,wheezing ?Have you been evaluated by an dough maker previously for possible drug allergy??No ???*Stinging Insects:?Insect Reaction(s)?Have you ever experienced a stinging insect reaction??No ???*Prior Evaluations and Treatments:?Prior evaluations and treatments?Have you been evaluated by another physician for allergic rhinitis, cough, wheezing, asthma, urticaria, angioedema, atopic dermatitis or eczema??No ?Have you undergone testing for any aforementioned conditions or symptoms??No ?Have you ever been on allergy immunotherapy??No ?Have you ever passed out during a blood draw, shot or vaccination??No ?Last dose of antihistamine:?loratadine (Claritin)?08/05/2022 ?Has your antihistamine been effective in controlling any of your symptoms??Yes ?Symptoms related to what condition(s)??allergic rhinitis ?Do you take any other psychiatric medication??No ???*Food allergy:?Food Allergy?Do you currently have or have you ever had any proven or suspected food allergies??No ???*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?Do you have difficulty swallowing foods or have you previously needed to have your esophagus dilated for food impaction or 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 ?What part of the GI tract is involved??esophagus ?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??difficulty swallowing liquids,difficulty swallowing solids,vomiting ?When did symptoms start??10-20 years ago ?Was endoscopy performed to verify the diagnosis??Yes ?What tests were performed??Upper endoscopy (EGD) ?Have you ever been evaluated by an dough maker for possible allergies related to your eosinophilic disease??No ???*Angioedema:?Angioedema (swelling)?Do you have recurrent swelling (angioedema)??No * ROS:?ALLERGY:?runny nose?Yes.?itchy eyes?Yes.?ear fullness?No.?Positive?per the HPI and history, otherwise unremarkable.?SPECIAL SENSES:?Positve for?none.?cataracts?No.?glaucoma?No.?loss of hearing?No.?itching in ears?Yes.?ringing in ears?No.?loss of balance?No.?loss of smell?No.?dry eyes?No.?excessive tearing?No.?itching eyes?No.?loss of taste?No.?conjunctivitis?No.?ear infections?No.?CONSTITUTIONAL:?weight gain?No.?weight loss?No.?night sweats?Yes.?Positive for?none.?ENT:?cold?No.?cough?No.?epistaxis?No.?hearing loss?No.?change in voice?No.?sore throat?No.?ringing in ears?No.?sinus pain?No.?Positive?per the HPI and history, otherwise unremarkable.?RESPIRATORY:?shortness of breath?Yes.?chest pain?No.?chest congestion?No.?cough?Yes.?Positive?per the HPI and history, otherwise unremakable.?OPHTHALMOLOGY:?diminished vision?No.?eye irritation?No.?drainage from eyes?No.?blurring of vision?No.?seasonal eye sx?No.?Positive for?per the HPI and history, otherwise unremarkable.?itching?No.?sensitivity to light?Yes.?discharge?No.?watering?No.?swelling of the eyelids?No.?redness?No.?ENDOCRINOLOGY:?fatigue?No.?polydipsia?No.?polyuria?No.?weight loss?No.?sleep disturbance?No.?cold intolerance?No.?heat intolerance?No.?diabetes?No.?Positive for?none.?CARDIOLOGY:?shortness of breath?Yes.?Positive for?none.?GASTROENTEROLOGY:?dysphagia?Yes.?abdominal pain?No.?nausea?No.?vomiting?Yes.?constipation?No.?diarrhea?No.?blood in stool?No.?indigestion?No.?hemorrhoids?No.?Positive for?none.?UROLOGY:?difficulty urinating?No.?blood in urine?No.?frequent urination?No.?urinary incontinence?No.?recurrent UTI?No.?Positive for?none.?DERMATOLOGY:?rash?No.?mole?No.?lumps?No.?dry or sensitive skin?No.?hives (urticaria)?No.?acne?No.?skin cancer?No.?Positive for?per the HPI and history, otherwise unremakable.?NEUROLOGY:?headache?No.?tingling numbness?No.?seizures?No.?insomnia?No.?memory loss?No.?dizziness?No.?gait abnormality?No.?Positive for?none.?HEMATOLOGY/LYMPH:?Positive for?none.?MUSCULOSKELETAL:?joint swelling?No.?joint pain?No.?leg cramps?Yes.?joint stiffness?No.?sciatica?No.?osteoporosis?No.?fracture?No.?carpal tunnel?No.?gout?No.?Positive for?none.?PSYCHOLOGY:?high stress level?No.?depression?No.?sleep disturbances?Yes.?suicidal ideation?No.?eating disorder?No.?mental or physical abuse?No.?anxiety?Yes.?Positive for?none.?MALE REPRODUCTIVE:?difficulty with erection?No.?diminished sexual drive?Yes.?penile discharge?No.?infertility?No.?All other review of systems per the HPI and history, otherwise unremarkable. * Medical History:? Objective: * Vitals:? * Examination: ???General examination: ?General appearance:?pleasant, well-developed, well-nourished.?HEENT:?conjunctiva are clear bilaterally, no tenderness to palpation of the sinuses, TM's without evidence of acute infection, turbinates 2+ swollen and pale inferiorly bilaterally, clear rhinorrhea is present, no polyps noted, no septal perforation, posterior oropharynx is clear, no exudates, no tongue swelling, and uvula is midline.?Oral cavity:?normal, no lesions.?Neck, thyroid :?supple, non-tender, no anterior cervical lymphadenopathy.?Breasts :?not performed.?Heart:?RRR, S1-S2, no murmurs, no rubs, no gallops.?Lungs:?clear to auscultation and percussion in all lung foss, no wheezes or crackles.?Abdomen:?soft, NT/ND, normal active bowel sounds.?Neurologic exam:?unremarkable.?Skin:?scattered, erythematous patches on arms bilaterally.?Peripheral pulses:?normal (2+) bilaterally.?Back:?normal.?Extremities:?normal ROM, no clubbing, no cyanosis, no edema.?Genitalia:?not performed.? Assessment: * Assessment: 1.?Allergic rhinitis due to pollen - J30.1 (Primary)???2.?Allergic contact dermatitis due to plants, except food - L23.7???3.?Chronic cough - R05.3???4.?Allergic rhinitis due to animal (cat) (dog) hair and dander - J30.81?? 5.?Other allergic rhinitis - J30.89???6.?Other chronic allergic conjunctivitis - H10.45??? Plan: * Treatment: 2.?Allergic contact dermatit is due to plants, except food? Notes: appears to be healing well, recommend continuing steroids per prescription?? 3.?Chronic cough? Start PROAIR HFA aerosol, 90 mcg/inh, 2 puff(s), inhaled, Q4-6 hours, PRN and per the asthma action plan, 30 day(s), 1, Refills 1.?? Notes: Spirometry today is normal. Start a trial of albuterol?? 4.?Allergic rhinitis due to animal (cat) (dog) hair and dander? Notes: Follow allergen avoidance, meds and consider SCIT as an adjunctive treatment to current regimen?? 5.?Other allergic rhinitis? Notes: Follow allergen avoidance, meds and consider SCIT as an adjunctive treatment to current regimen?? 6.?Other chronic allergic co njunctivitis? Notes: Given ocular signs and symptoms I encouraged allergy avoidance measures and meds as above. If symptoms persist, consider adding additional medications including intraocular antihistamine/mast cell stabilizer, PRN ?? * Procedure Codes:?22839 PRICK TESTS, Units: 72.00 , 99879 INTRADERMAL TESTS, Units: 9.00 , 52686 MEASURE BLOOD OXYGEN LEVEL, G8427 DOC MEDS VERIFIED W/PT OR RE, A4617 Mouthpiece, 30505 RESPIRATORY FLOW VOLUME LOOP * Preventive Medicine:? ??Counseling:?Medication instruction:?Watch for side effects of prescribed medications, Nasal steroid/antihistamine instruction: avoid septum.?Education:?GENERAL EDUCATION: Our staff spent an additional 30 minutes in direct contact with the patient educating them on their current diagnoses and proper treatment and prevention of symptoms and the proper use of medications.?Education 2:?ARC EDUCATION: Our staff discussed the appropriate allergen avoidance measures and medication utilization including upper airway hygiene with daily nasal washes given the patient's clinical status and diagnoses. SCIT EDUCATION: Discussed allergy immunotherapy including the relative risks, benefits and alternatives to this treatment as an adjunctive measure to current therapy, Allergy Immunotherapy: Risks: bleeding, infection, allergic reaction, anaphylaxis = severe allergic reaction that can cause ; Benefits: reduced need for medications, improved symptoms, disease modification. Alternatives: watch/wait, change medication regimen, improve allergy avoidance measures, Our staff discussed the warning signs of anaphylaxis and the indications to use self-injectable epinephrine and seek urgent or emergent care.?Patient education material?sent to portal??Yes ?Care goal follow up plan?BMI management provided?Yes ?Above Normal BMI Follow-up?Dietary management education, guidance, and counseling ?BP Management:?FIRST HYPERTENSIVE BP READING FOLLOW-UP PLAN:?Follow-up 1 month ?REFERRAL TO ALTERNATIVE / PRIMARY CARE PROVIDER:?Referral to general practitioner * Follow Up:?4 Weeks (Reason: Evaluation and Management) * Billing Information: * Visit Code:? 17610 Office Visit, New Pt., Level 4. Modifiers: 25 * Procedure Codes:? 16764 PRICK TESTS. Units: 72.00. 04391 INTRADERMAL TESTS. Units: 9.00. 68807 MEASURE BLOOD OXYGEN LEVEL. G8427 DOC MEDS VERIFIED W/PT OR RE. A4617 Mouthpiece. 42124 RESPIRATORY FLOW VOLUME LOOP. * Electronic signature of Sarah Oquendo MD on 03/21/2024 at 04:17 PM ISSUE CLERK Sign off status: Pending * Provider:?Yaneli Oquendo MD Date:?04/2022 Generated for Paulo smith/Myriam/eTransmitting on:?03/21/2024 04:17 PM ISSUE CLERK History and Physical Notes * HPI (History of Present Illness) Category Sub-Category Detail Notes Category Not es *Introduction I had the pleasure of seeing Donnie Quinones, a 51 year old with anxiety and hyperlipidemia presenting for evaluation of congestion and rhinorrhea. He reports frequent congestion and rhinorrhea. He also reports eye and ear itching. No history of recurrent otitis or sinusitis. No decrease in sense of smell. Sinus surgery was peformed last year by Dr. Worthington for deviated septum. Improvement in breathing through his nose since surgery. He is using Flonase on a prn basis and Claritin D. Triggers include animals, Spring weather. He wheezes at night. He uses albuterol about once a month with wheezing. He is scheduled to see a GI physician later this month due to food becoming stuck. He has GERD and takes OTC lansoprazole. He is currently taking steroids for poison darlin. He has never undergone allergy skin testing or received allergy immunotherapy. He denies a history of physician-diagnosed allergic rhinitis, otitis media, recurrent pneumonia, asthma/RAD, eczema, food allergies, urticaria/angioedema, medication allergies, contact dermatitis, latex allergy, eosinophilic esophagitis or stinging insect hypersensitivity *Allergic Rhinoconjunctivitis Eyes Specific affected area:: both (bilateral) Occurence?: intermittent ?How frequent?: infrequent When does this mostly occur?: anytime Symptoms:: itching,watering,swelling of the lids Effective treatments:: oral antihistamines (Zyrtec or Rashmi or Claritin),oral steroids (Prednisone or Medrol) Ears Specific affected area:: both (b ilateral) How often?: intermittent Symptoms:: plugged,discharge Cough Frequency:: infrequent Is cough more bothersome during night?: No Is phlegm produced?: No Nose Specific area affected:: both (b ilateral) Occurence?: intermittent ?How frequent?: infrequent When does this mostly occur?: anytime Symptoms?: itching,congestio n,postnasal drainage,sinus infection,awaken very congested in the a.m. Effective treatments?: oral antihistamines (Zyrtec or Rashmi or Claritin),nasal steroid sprays (Flonase or Nasonex or Veramyst) Sinuses Do you have sinus pain?: No Have you lost sense of taste?: No Have you been treated with antibiotics f or sinusitis?: No Have any of the following tr eatments improved your sinus symptoms?: no treatment to date Have you ever had a CT scan or xray?: No Have you ever undergone sinus surgery?: Yes ?Where?: Other hospital ?When?: 07/2021 Allergic rhinitis Do you have or suspe ct you have allergic rhinitis (itchy eyes, sneezing, congestion or runny nose triggered by allergies)?: Yes ?Which areas and what sympto ms are involved? Please fill out each section below as needed.: eyes,nose,sinuses ?Which of the following trig apurva your allergic rhinitis symptoms?: exercise,tree pollen,grass pollen,weed pollen,sinus infections,house cleaning (dusting or vacuuming),mold,damp or musty areas,colds or flu,air pollution,spring (season),fall (season),cats,dogs ?Do you have any of the foll owing other symptoms associated with your allergic rhinitis?: loud snoring,restless sleep *Asthma Cough Do you have a recurrent cough?: No Effective treatments for cou gh and or wheezing Rescue inhaler or nebulizer treatment:: Albuterol Wheezing Do you have recurren t wheezing or a history of wheezing sometime in your life?: Yes ?Approximately, when did it start?: 02/22 022 ?Approximately, when did you last wheeze ?: 07/2019 Did you have symptoms of asthma as a chi ld?: Yes Did you have frequent respiratory infect ions as a child?: No Were you ever hospitalized i n the first 12 months of life for a respiratory infection in childhood?: No Do you still have wheezing?: Yes ?How often do you get it?: weekly Is your wheezing changing?: same List months when wheezing is worse:: May,June,July,August What triggers your wheezing? : exercise,tree pollen,grass pollen,weed pollen,cold air,sinus infections,house dusting or vacuuming,cats,dogs Do you take an inhaled, rescue bronchodi lator medication?: Yes ?Name:: Albuterol ?Is your bronchodilator used daily?: No ??How often?: less than once per month ?When was your last dose of an inhaled b ronchodilator?: past few months Have you taken oral steroids (Prednisone or Medrol) in the past?: Yes ?How many times throughout your entire l giuseppe?: 5 ?How many times in the last year?: 1 Nocturnal Symptoms Do you have any of t he following respiratory symptoms at night?: wheezing or feeling of chest tightness Physical Performance How many blocks can you wal k? (Enter 99 for unlimited): 99 How many flights of stairs c an you climb without stopping? (Enter 99 for unlimited): 20 If there are limitations, wh at symptoms limit further activity?: cough,shortness of breath *Infections Vaccination History For children , are childhood vaccines up to date:: Yes Have you ever had a flu shot?: No Have you ever had a pneumococcal vaccine ([id number])?: No Have you ever had a tetanus vaccine (DTa p-Tdap-Td)?: Yes ?Date of last tetanus vaccine?: 08/06/19 15 Ear Infections Do you have frequent ear infecti ons?: No Sinus Symptoms and Surgery Do you have chronic o r recurrent sinus symptoms?: No Do you have sinus pain?: No Do you have a loss of sense of taste?: N o Have you used any of the fol lowing treatments for your sinuses?: nasal spray decongestants,oral antihistamines,oral decongestants Which provided benefit?: oral antihistam terrie Have you ever had a sinus CT or X-Ray?: No Have your ever undergone sinus surgery?: No Bronchitis History Do you get frequent bronchiti s?: No Pneumonia History Have you ever had pneumonia or recurrent pneumonia?: No Skin and Other Infections Do you get frequent sk in infections (cellulitis)?: No Do you get any other frequent infections ?: No *Other Rash and Contact Dermatitis Other rashes and contact dermatitis Have you ever had any other form of rash or contact dermatitis?: No *Atopic dermatitis Atopic dermatitis - Eczema Do you have chronic or recurrent atopic dermatitis or eczema?: No *Urticaria Urticaria (hives) Do you have re current hives?: No *Medication allergy Medication Allergy Do you fe el you are allergic to any medications? : No What symptom(s) did the medication cause ?: shortness of breath,wheezing Have you been evaluated by a n dough maker previously for possible drug allergy?: No *Stinging Insects Insect Reaction(s) Have you ev er experienced a stinging insect reaction? : No *Prior Evaluations and Treatments Prior evaluations and treatments Have you been evaluated by another physician for allergic rhinitis, cough, wheezing, asthma, urticaria, angioedema, atopic dermatitis or eczema?: No Have you undergone testing for any afore mentioned conditions or symptoms?: No Have you ever been on allergy immunother apy?: No Have you ever passed out during a blood draw, shot or vaccination?: No Last dose of antihistamine: loratadine (Claritin ): 08/05/2022 Has your antihistamine been effective in controlling any of your symptoms?: Yes ?Symptoms related to what condition(s)?: allergic rhinitis Do you take any other psychiatric medica tion?: No *Food allergy Food Allergy Do you currently have or have you ever had any proven or suspected food allergies?: No *Eosinophilic GI Eosinophilic Gastroi ntestinal Disease Do you have difficulty swallowing foods or have you previously needed to have your esophagus dilated for food impaction or 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 ?What part of the GI tract is involved?: esophagus ?What symptoms have been cau sed by your eosinophilic GI disease?: difficulty swallowing liquids,difficulty swallowing solids,vomiting ?When did symptoms start?: 10-20 years a go ?Was endoscopy performed to verify the d iagnosis?: Yes ??What tests were performed?: Upper endo scopy (EGD) ?Have you ever been evaluate d by an dough maker for possible allergies related to your eosinophilic disease?: No *Angioedema Angioedema (swelling) Do you hav e recurrent swelling (angioedema)?: No Examination Category Sub-Category Detail Notes Category Not es General examination HEENT: conjunctiva are clear bilaterally, no tenderness to palpation of the sinuses, TM's without evidence of acute infection, turbinates 2+ swollen and pale inferiorly bilaterally, clear rhinorrhea is present, no polyps noted, no septal perforation, posterior oropharynx is clear, no exudates, no tongue swelling, and uvula is midline Neck, thyroid : supple, non-tender, no anterior cervical lymphadenopathy Heart: RRR, S1-S2, no murmu rs, no rubs, no gallops Lungs: clear to auscultatio n and percussion in all lung foss, no wheezes or crackles Abdomen: soft, NT/ND, normal active bowel sounds Extremities: normal ROM, no clubb ing, no cyanosis, no edema General appearance: pleasant, well-devel oped, well-nourished Skin: scattered, erythemat ous patches on arms bilaterally Neurologic exam: unremarkable Oral cavity: normal, no lesions Breasts : not performed Peripheral pulses: normal (2+) bilatera lly Back: normal Genitalia: not performed
--- OUTSIDE RECORDS SUMMARY | 2024-03-21 16:17 | XMS_ITS | Data Portability ---
Author Organization ALFONSO RICARDOTiara Steele Address [address] [place] [address] Assessment No assessment recorded. Plan of Treatment Reminders Order Date Submit Date Provider Last Modified By Organization Details Last Modified Time Details Appointments None recorded. Lab CBC w/ auto diff 2018 019 [facility], [address], [address], [place], [address], 9 13:08:42 lipid panel, serum 2018 019 [facility], [address], [address], [place], [address], 9 13:08:44 TSH, ultra-sen sitive, serum 2018 019 [facility], [address], [address], [place], [address], 13:08:46 PSA, serum or plasma 2018 019 [facility], [address], [address], [place], [address], 9 13:08:45 CMP, serum or plasma 2018 019 [facility], [address], [address], [place], [address], 9 13:08:44 Referral None recorded. Procedures None recorded. Surgeries None recorded. Imaging XR, lumbosacr al spine 2018 019 [facility], [address] [facility] , [place], [address], 9 17:05:21 XR, foot, 3 or more view 2019 020 [facility], [address] [place], [address], 0 16:29:22 Medication Orders Ventolin HFA 90 mcg/actua tion aerosol inhaler 2018 019 [facility], [address] [place] [address], [address], 9 08:59:09 Tessalon Perles 100 mg capsule 2018 019 [facility], [address] [place] [address], [address], 0 14:33:32 triamcino lone acetonide 0.1 % topical cream 2018 019 [facility], [address] [place] [address], [address], 0 14:33:50 Medrol (Rian) 4 mg tablets in a dose pack 2018 019 [facility], [address] [place] [address], [address], 0 14:33:38 naproxen 500 mg tablet 2019 020 [facility], [address] [place] [address], [address], 0 15:04:52 Tylenol-C odeine #3 300 mg-30 mg tablet 2019 020 [email or web address] [facility], [address] [place] [address], [address], 0 15:11:56 Patient TargetsNo targets recorded. Patient Instructions Encounter Date Encounter Id Patient Instructions Last Modified By Organization Details Last Modified Time 06/08/2018 [id number] shortness of breath: care instructions ltardino Not available 06/08/2018 08:59:05 07/10/2018 [id number] body mass index: care instructions ltardino Not available 07/10/2018 09:15:07 learning about healthy weight ltardino Not available 07/10/2018 09:15:07 08/15/2018 [id number] back care and preventing injuries: care instructions ltardino Not available 08/15/2018 16:56:22 upper respirator y infection (cold): care instructions ltardino Not available 08/15/2018 16:56:22 Ordered MRI LS spine for further eval. ltardino Not available 08/16/2018 15:33:56 Reason for Referral None Reported. Results Created Date Observation Date Name Description Value Unit Range Abnormal Flag Note LastModifiedBy Organization Detail LastModifiedTime 01/31/20 19 01/31/2019 CBC w/ auto diff WBC 4.4 x10e3 /uL 3.4-10 .8 Not Available [facility] ([facility]) [address] [place], [address], 01/31/2019 13:08:42 01/31/20 19 01/31/2019 CBC w/ auto diff RBC 5.31 x10e6 /uL 4.14-5 .80 Not Available [facility] ([facility]) [address] [place], [address], 01/31/2019 13:08:42 01/31/20 19 01/31/2019 CBC w/ auto diff hemoglobin 15.4 g/dL 13.0-1 7.7 Not Available [facility] ([facility]) [address] [place], [address], 01/31/2019 13:08:42 01/31/20 19 01/31/2019 CBC w/ auto diff hematocrit 47.1 % 37.5-5 1.0 Not Available [facility] ([facility]) [address] [facility], [place], [address], 01/31/2019 13:08:42 01/31/20 19 01/31/2019 CBC w/ auto diff MCV 89 fL 79-97 Not Available [facility] ([facility]) [address] [place], [address], 01/31/2019 13:08:42 01/31/20 19 01/31/2019 CBC w/ auto diff MCH 29.0 pg 26.6-3 3.0 Not Available [facility] ([facility]) [address] [place], [address], 01/31/2019 13:08:42 01/31/20 19 01/31/2019 CBC w/ auto diff MCHC 32.7 g/dL 31.5-3 5.7 Not Available [facility] ([facility]) [address] [facility], [place], [address], 01/31/2019 13:08:42 01/31/20 19 01/31/2019 CBC w/ auto diff RDW 15.5 % 12.3-1 5.4 above high normal Eff ectiv e Janua ry 2019, the RDW pedia tric refer ence* * inter kyara will be remov ed and the adult refer ence inter kyara will be kumar ing to: Femal e 11.7 - 15.4 Male 11.6 - 15.4 Not Available [facility] ([facility]) [address] [facility], [place], [address], 01/31/2019 13:08:42 01/31/20 19 01/31/2019 CBC w/ auto diff platelets 277 x10e3 /uL 150-45 0 Not Available [facility] ([facility]) [address] [facility], [place], [address], 01/31/2019 13:08:42 01/31/20 19 01/31/2019 CBC w/ auto diff neutrophils 45 % not estab. Not Available [facility] ([facility]) [address] [facility], [place], [address], 01/31/2019 13:08:42 01/31/20 19 01/31/2019 CBC w/ auto diff lymphs 27 % not estab. Not Available [facility] ([facility]) [address] [facility], [place], [address], 01/31/2019 13:08:42 01/31/20 19 01/31/2019 CBC w/ auto diff monocytes 12 % not estab. Not Available [facility] ([facility]) [address] [facility], [place], [address], 01/31/2019 13:08:42 01/31/20 19 01/31/2019 CBC w/ auto diff eos 14 % not estab. Not Available [facility] ([facility]) [address] [facility], [place], [address], 01/31/2019 13:08:42 01/31/20 19 01/31/2019 CBC w/ auto diff basos 2 % not estab. Not Available [facility] ([facility]) [address] [facility], [place], [address], 01/31/2019 13:08:42 01/31/20 19 01/31/2019 CBC w/ auto diff immature cells SCALEMAN Not Available [facility] ([facility]) [address] [facility], [place], [address], 01/31/2019 13:08:42 01/31/20 19 01/31/2019 CBC w/ auto diff neutrophils (absolute) 2.0 x10e3 /uL 1.4-7. 0 Not Available [facility] ([facility]) [address] [facility], [place], [address], 01/31/2019 13:08:42 01/31/20 19 01/31/2019 CBC w/ auto diff lymphs (absolute) 1.2 x10e3 /uL 0.7-3. 1 Not Available [facility] ([facility]) [address] [facility], [place], [address], 01/31/2019 13:08:42 01/31/20 19 01/31/2019 CBC w/ auto diff monocytes(ab solute) 0.6 x10e3 /uL 0.1-0. 9 Not Available [facility] ([facility]) [address] [facility], [place], [address], 01/31/2019 13:08:42 01/31/20 19 01/31/2019 CBC w/ auto diff eos (absolute) 0.6 x10e3 /uL 0.0-0. 4 above high normal Not Available [facility] ([facility]) [address] [facility], [place], [address], 01/31/2019 13:08:42 01/31/20 19 01/31/2019 CBC w/ auto diff baso (absolute) 0.1 x10e3 /uL 0.0-0. 2 Not Available [facility] ([facility]) [address] [facility], [place], [address], 01/31/2019 13:08:42 01/31/2001/31/2019 CBC w/ auto diff immature granulocytes 0 % not estab. Not Available [facility] ([facility]) [address] [facility], [place], [address], 01/31/2019 13:08:42 01/31/2001/31/2019 CBC w/ auto diff immature grans (abs) 0.0 x10e3 /uL 0.0-0. 1 Not Available [facility] ([facility]) [address] [facility], [place], [address], 01/31/2019 13:08:42 01/31/20 19 01/31/2019 CBC w/ auto diff NRBC SCALEMAN Not Available [facility] ([facility]) [address] [facility], [place], [address], 01/31/2019 13:08:42 01/31/20 19 01/31/2019 CBC w/ auto diff hematology comments: SCALEMAN Not Available [facility] ([facility]) [address] [facility] [place], [address], 01/31/2019 13:08:42 01/31/20 19 01/31/2019 CMP, serum or plasm a glucose 104 mg/dL 65-99 above high normal Not Available [facility] ([facility]) [address] [facility] [place], [address], 01/31/2019 13:08:43 01/31/20 19 01/31/2019 CMP, serum or plasm a BUN 14 mg/dL 6-24 Not Available [facility] ([facility]) [address] [facility] [place], [address], 01/31/2019 13:08:43 01/31/20 19 01/31/2019 CMP, serum or plasm a creatinine 1.07 mg/dL 0.76-1 .27 Not Available [facility] ([facility]) [address] [facility] [place], [address], 01/31/2019 13:08:43 01/31/20 19 01/31/2019 CMP, serum or plasm a eGFR if nonafricn AM 81 mL/mi n/1.7 3 >59 Not Available [facility] ([facility]) [address] [facility] [place], [address], 01/31/2019 13:08:43 01/31/20 19 01/31/2019 CMP, serum or plasm a eGFR if africn AM 93 mL/mi n/1.7 3 >59 Not Available [facility] ([facility]) [address] [facility] [place], [address], 01/31/2019 13:08:43 01/31/20 19 01/31/2019 CMP, serum or plasm a BUN/creatini ne ratio 13 9-20 Not Available [facility] ([facility]) [address] [facility] [place], [address], 01/31/2019 13:08:43 01/31/20 19 01/31/2019 CMP, serum or plasm a sodium 140 mmol/ L 134-14 4 Not Available [facility] ([facility]) [address] [place], [address], 01/31/2019 13:08:43 01/31/20 19 01/31/2019 CMP, serum or plasm a potassium 4.8 mmol/ L 3.5-5. 2 Not Available [facility] ([facility]) [address] [place], [address], 01/31/2019 13:08:43 01/31/20 19 01/31/2019 CMP, serum or plasm a chloride 102 mmol/ L 96-106 Not Available [facility] ([facility]) [address] [place], [address], 01/31/2019 13:08:43 01/31/20 19 01/31/2019 CMP, serum or plasm a carbon dioxide, total 22 mmol/ L 20-29 Not Available [facility] ([facility]) [address] [place], [address], 01/31/2019 13:08:43 01/31/20 19 01/31/2019 CMP, serum or plasm a calcium 10.1 mg/dL 8.7-10 .2 Not Available [facility] ([facility]) [address] [place], [address], 01/31/2019 13:08:43 01/31/20 19 01/31/2019 CMP, serum or plasm a protein, total 7.4 g/dL 6.0-8. 5 Not Available [facility] ([facility]) [address] [place], [address], 01/31/2019 13:08:43 01/31/20 19 01/31/2019 CMP, serum or plasm a albumin 4.4 g/dL 3.5-5. 5 Not Available [facility] ([facility]) [address] [facility] [place], [address], 01/31/2019 13:08:43 01/31/20 19 01/31/2019 CMP, serum or plasm a globulin, total 3.0 g/dL 1.5-4. 5 Not Available [facility] ([facility]) [address] [facility] [place], [address], 01/31/2019 13:08:43 01/31/20 19 01/31/2019 CMP, serum or plasm a A/G ratio 1.5 1.2-2. 2 Not Available [facility] ([facility]) [address] [facility] [place], [address], 01/31/2019 13:08:43 01/31/2001/31/2019 CMP, serum or plasm a bilirubin, total 0.5 mg/dL 0.0-1. 2 Not Available [facility] ([facility]) [address] [place], [address], 01/31/2019 13:08:43 01/31/20 19 01/31/2019 CMP, serum or plasm a alkaline phosphatase 79 IU/L 39-117 Not Available [facility]) [address] [place], [address], 01/31/2019 13:08:43 01/31/20 19 01/31/2019 CMP, serum or plasm a AST (SGOT) 23 IU/L 0-40 Not Available [facility] ([facility]) [address] [place], [address], 01/31/2019 13:08:43 01/31/20 19 01/31/2019 CMP, serum or plasm a ALT (SGPT) 22 IU/L 0-44 Not Available [facility] ([facility]) [address] [place] [address] [place], [address], 01/31/2019 13:08:43 01/31/20 19 01/31/2019 lipid panel , serum cholesterol, total 240 mg/dL 100-19 9 above high normal Not Available [facility] ([facility]) [address] [facility], [place], [address], 01/31/2019 13:08:44 01/31/20 19 01/31/2019 lipid panel , serum triglyceride s 130 mg/dL 0-149 Not Available [facility] ([facility]) [address] [place], [address], 01/31/2019 13:08:44 01/31/20 19 01/31/2019 lipid panel , serum HDL cholesterol 61 mg/dL >39 Not Available [facility]) [address] [place], [address], 01/31/2019 13:08:44 01/31/20 19 01/31/2019 lipid panel , serum VLDL cholesterol shelia 26 mg/dL 5-40 Not Available [facility]) [address] [facility], [place], [address], 01/31/2019 13:08:44 01/31/20 19 01/31/2019 lipid panel , serum LDL cholesterol calc 153 mg/dL 0-99 above high normal Not Available [facility] ([facility]) [address] [place], [address], 01/31/2019 13:08:44 01/31/20 19 01/31/2019 lipid panel , serum comment: SCALEMAN Not Available [facility] ([facility]) [address] [place], [address], 01/31/2019 13:08:44 01/31/20 19 01/31/2019 lipid panel , serum LDL/HDL ratio 2.5 ratio 0.0-3. 6 LDL/H DL Ratio Men Women 1/2 Avg.R isk 1.0 1.5 Avg.R isk 3.6 3.2 2X Avg.R isk 6.2 5.0 3X Avg.R isk 8.0 6.1 Not Available [facility] ([facility]) [address] [facility], [place], [address], 01/31/2019 13:08:44 01/31/2001/31/2019 PSA, serum or plasm a prostate specific Ag, serum 4.0 NG/mL 0.0-4. 0 Kallie ECLIA metho dolog y. Accor ding to the Ameri can [employer]rolo g[employer] iatio n, Serum PSA shoul d decre ase and remai n at undet ectab le level s after radic al prost atect bandar. The AUA defin es bioch emica l recur rence as an initi al PSA value 0.2 ng/mL or great er follo wed by a subse quent confi rmato ry PSA value 0.2 ng/mL or great er. Value s obtai shane with diffe rent assay metho ds or kits canno t be used inter kumar eably . Resul ts canno t be inter prete d as absol yasmeen evide nce of the prese nce or absen ce of [facility] se. Not Available [facility] ([facility]) [address] [facility], [place], [address], 01/31/2019 13:08:45 01/31/2001/31/2019 PSA, serum or plasm a pdf . Not Available [facility] ([facility]) [address] [facility], [place], [address], 01/31/2019 13:08:45 01/31/2001/31/2019 TSH, ultra -sens itive , serum TSH 1.370 uIU/m L 0.450- 4.500 Not Available [facility] ([facility]) [address] [facility], [place], [address], 01/31/2019 13:08:46 08/23/1911/21/2016 XR, lumba r spine No observ ation record ed. ltardino Not Available 2018 10:19:00 02/23/19 20 02/23/2019 XR, foot, 3 or more view No observ ation record ed. [facility] [address] [place], [address], 02/28/2019 11:06:45 Result Notes None recorded. Problems No Known Problems Procedures Surgical History Date Name Laterality Status Provider Name and Address Organization Details Recorded Time Other completed ZEV Plummer - [facility] 01/30/2018 09:37:41 Other completed ZEV Plummer - [facility] 01/30/2018 09:38:08 Other completed ZEV Plummer - [facility] 01/30/2018 09:38:23 Back Surgery completed ZEV Plummer - [facility] 01/30/2018 09:38:55 Imaging Results Imaging Date Name Status LastModified by Organiz ation Details LastModified Time 11/21/2016 XR, lumbar spine completed ltardino Information not available 08/22/2018 10:19:00 02/23/2019 XR, foot, 3 or more view completed [facility] [address], [place], [address], 02/28/2019 11:06:45 Procedure Notes None recorded. Medical Equipment None Reported. Allergies Allergen ID Allergen Name Allergen Category Reaction Reaction Severity Criticality Documentation Date Start Date Code Code System Note Provider Name and Address Organization Details Recorded Time [id number] ibuprofen medicatio n chest pain Not available Not available 01/30/2018 5640 RxNorm Not Available Not Available Not Available Medications Name Sig Start Date Stop Date Status Note LastModified by Organization Details LastModified Time tramadol 50 mg tablet 01/30 completed Not Available Not Available Not Available triamcinolo ne acetonide 0.1 % topical cream APPLY A THIN LAYER TO THE AFFECTED AREA(S) BY TOPICAL ROUTE 2 TIMES PER DAY 02/23 completed Not Available Not Available Not Available benzonatate 100 mg capsule Take 1 capsule 3 times a day by oral route as needed. 02/23 completed Not Available Not Available Not Available pantoprazol e 40 mg tablet,sarahi yed release TAKE 1 TABLET BY MOUTH ONCE DAILY active Not Available Not Available No t Available Tylenol-Cod eine #3 300 mg-30 mg tablet Take 1 tablet 3 times a day by oral route as needed. 2019 active Not Available Not Available Not Avai lable methylpredn isolone 4 mg tablets in a dose pack Take 1 dose pk every day by oral route as directed. 02/23 completed Not Available Not Available Not Available albuterol sulfate HFA 90 mcg/actuati on aerosol inhaler Inhale 2 puffs every 4 hours by inhalatio n route as needed. active Not Available Not Available No t Available naproxen 500 mg tablet Take 1 tablet twice a day by oral route as needed. 2019 active Not Available Not Available Not Avai lable azelastine 205.5 mcg (0.15 %) nasal spray active Not Available Not Available Not Available Vitals Date Recorded Body height Provider Name an d Address Organization Details Last Updated DateTime 06/08/2018 187.96 cm Charlette Laguna MA [facility] 2018 08:48:18 Date Recorded Body mass index (BMI) Body weight Provider Name and Address Organization Details Last Updated DateTime 06/08/2018 34.9 kg/m2 514818.41 g Charlette Laguna MA [facility] 06/08/2018 08:48:27 Date Recorded Heart rate Provider Name an d Address Organization Details Last Updated DateTime 06/08/2018 76 /min Charlette Laguna MA [facility] 2018 08:50:08 Date Recorded Respiratory rate Provider Name a nd Address Organization Details Last Updated DateTime 06/08/2018 16 /min Charlette Laguna MA [facility] 06/08/2018 08:50:10 Date Recorded Body temperature Provider Name a nd Address Organization Details Last Updated DateTime 06/08/2018 95.3 [degF] Charlette Laguna MA [facility] 06/08/2018 08:50:52 Date Recorded Body height Provider Name an d Address Organization Details Last Updated DateTime 07/10/2018 187.96 cm Charlette Laguna MA [facility] 2018 08:59:14 Date Recorded Body mass index (BMI) Body weight Provider Name and Address Organization Details Last Updated DateTime 07/10/2018 35.2 kg/m2 582843.74 g Charlette Laguna MA [facility] 07/10/2018 08:59:21 Date Recorded Heart rate Provider Name an d Address Organization Details Last Updated DateTime 07/10/2018 76 /min Charlette Laguna MA [facility] 2018 09:02:20 Date Recorded Respiratory rate Provider Name a nd Address Organization Details Last Updated DateTime 07/10/2018 16 /min Charlette Laguna MA [facility] 07/10/2018 09:02:22 Date Recorded Body temperature Provider Name a nd Address Organization Details Last Updated DateTime 07/10/2018 98.2 [degF] Charlette Laguna MA [facility] 07/10/2018 09:03:13 Date Recorded Body height Provider Name an d Address Organization Details Last Updated DateTime 08/15/2018 187.96 cm Charlette Laguna MA [facility] 2018 16:38:43 Date Recorded Body mass index (BMI) Body weight Provider Name and Address Organization Details Last Updated DateTime 08/15/2018 35.1 kg/m2 170853 g Charlette Laguna MA [facility] 08/15/2018 16:38:56 Date Recorded Heart rate Provider Name an d Address Organization Details Last Updated DateTime 08/15/2018 76 /min Charlette Laguna MA [facility] 2018 16:40:40 Date Recorded Respiratory rate Provider Name a nd Address Organization Details Last Updated DateTime 08/15/2018 18 /min Charlette Laguna MA [facility] 08/15/2018 16:40:42 Date Recorded Body temperature Provider Name a nd Address Organization Details Last Updated DateTime 08/15/2018 97.9 [degF] Charlette Laguna MA [facility] 08/15/2018 16:41:26 Date Recorded Body height Provider Name an d Address Organization Details Last Updated DateTime 01/30/2019 187.96 cm Charlette Laguna MA [facility] 2018 08:47:50 Date Recorded Body mass index (BMI) Body weight Provider Name and Address Organization Details Last Updated DateTime 01/30/2019 32.5 kg/m2 447822.87 g Charlette Laguna ZEV [facility] 01/30/2019 08:49:19 Date Recorded Heart rate Provider Name an d Address Organization Details Last Updated DateTime 01/30/2019 78 /min Charletteroxanne Laguna MA [facility] 2018 08:49:54 Date Recorded Respiratory rate Provider Name a nd Address Organization Details Last Updated DateTime 01/30/2019 18 /min Charletteroxanne CaraballohZEV [facility] 01/30/2019 08:49:56 Date Recorded Body temperature Provider Name a nd Address Organization Details Last Updated DateTime 01/30/2019 98.5 [degF] Charlette Laguna MA [facility] 01/30/2019 08:50:22 Date Recorded Body height Provider Name an d Address Organization Details Last Updated DateTime 02/23/2019 187.96 cm Ronit Sepulveda MA [facility] 2019 14:32:58 Date Recorded Body mass index (BMI) Body weight Provider Name and Address Organization Details Last Updated DateTime 02/23/2019 33.2 kg/m2 453390.23 g Ronit Sepulveda MA [facility] 02/23/2019 14:33:10 Date Recorded Body temperature Provider Name a nd Address Organization Details Last Updated DateTime 02/23/2019 98.2 [degF] Ronit Sepulveda MA [facility] 02/23/2019 14:35:37 Date Recorded Respiratory rate Provider Name a nd Address Organization Details Last Updated DateTime 02/23/2019 16 /min Ronit Sepulveda MA [facility] 02/23/2019 14:35:41 Date Recorded Heart rate Provider Name an d Address Organization Details Last Updated DateTime 02/23/2019 76 /min Ronit Sepulveda MA [facility] 2019 14:37:08 Date Recorded Systolic blood pressure Diastolic blood pressure Provider Name and Address Organization Details Last Updated DateTime 06/08/2018 116 mm[Hg] 90 mm[Hg] Charlette Laguna MA [facility] 06/08/2018 08:49:44 Date Recorded Systolic blood pressure Diastolic blood pressure Provider Name and Address Organization Details Last Updated DateTime 07/10/2018 138 mm[Hg] 94 mm[Hg] Charlette Laguna MA [facility] 07/10/2018 09:01:32 Date Recorded Systolic blood pressure Diastolic blood pressure Provider Name and Address Organization Details Last Updated DateTime 07/10/2018 118 mm[Hg] 90 mm[Hg] Ziyad Dimas [facility] 07/10/2018 09:13:09 Date Recorded Systolic blood pressure Diastolic blood pressure Provider Name and Address Organization Details Last Updated DateTime 08/15/2018 128 mm[Hg] 94 mm[Hg] Charlette Laguna MA [facility] 08/15/2018 16:40:05 Date Recorded Systolic blood pressure Diastolic blood pressure Provider Name and Address Organization Details Last Updated DateTime 01/30/2019 144 mm[Hg] 108 mm[Hg] Charlette Laguna MA [facility] 01/30/2019 08:49:28 Date Recorded Systolic blood pressure Diastolic blood pressure Provider Name and Address Organization Details Last Updated DateTime 02/23/2019 130 mm[Hg] 92 mm[Hg] Ronit Sepulveda MA [facility] 02/23/2019 14:36:36 Social History Question Answer Notes LastModified by Organizat ion Details LastModified Time Tobacco Smoking Status Never Smoker Charlette Laguna MA null, [facility] 01/30/2018 09:37:11 What Is Your Level Of Alcohol Consumption? Occasional [email or web address] Information not available 01/30/2018 Do You Or Have You Ever Used E-cigarettes Or Vape? Never Used Electronic Cigarettes Information not available 02/23/2019 What Was The Date Of Your Most Recent Tobacco Screening? 02/23/2019 Information not available 02/23/2019 Do You Or Have You Ever Used Smokeless Tobacco? Never Used Smokeless Tobacco Information not available 02/23/2019 How Much Tobacco Do You Smoke? No Information not available 02/23/2019 On What Date Was Tobacco Cessation Counseling Provided? 02/23/2019 Information not available 02/23/2019 How Many Years Have You Smoked Tobacco? 0 Information not available 02/23/2019 Sex: Unknown Functional Status None recorded. Mental Status None recorded. Family History Relationship Description Onset Age of this Age Resolved Age Notes LastModified by Organization Details LastModified Time Father No current problems or disability [email or web address] Not available 01/30 09:36:25 Mother No current problems or disability [email or web address] Not available 01/30 09:36:25 Medical History Condition Response Acid Reflux (GERD) Y Past Encounters Encounter ID Performer Location Encounter Start Date Encounter Closed Date Diagnosis/Indication Diagnosis SNOMED-CT Code Diagnosis ICD10 Code Diagnosis Note [id number] Ziyad Mario 12 [address] [facility] [place] [address] 01/30/2018 09:07:54 01/30/2018 14:40:27 Adult health examination 753571782 Z00.00 Gastroesop hageal reflux disease without esophagitis 135536102 K21.9 Dysphagia 30065899 R13.1 0 [id number] Ziyad Mario [address] [facility] [place] [address] 04/13/2018 08:41:35 04/14/2018 10:31:16 Gastroesophageal reflux disease without esophagitis 100521064 K21.9 Body mass index 30+ - obesity 317217194 Z68.35 Snoring 96749623 R06.83 [id number] Ziyad Mario [address] [facility] [place] [address] 06/08/2018 08:35:55 06/09/2018 10:51:36 Dyspnea 920480684 R06.02 [id number] Ziyad Mario [address] [facility] [place] [address] 07/10/2018 08:41:37 07/11/2018 10:19:36 Body mass index 30+ - obesity 281240272 Z68.35 Gastroesop hageal reflux disease without esophagitis 935084024 K21.9 Pruritic rash 07147663 L 28.2 [id number] Ziyad Mario [address] [facility] [place] [address] 08/15/2018 16:25:16 08/16/2018 15:44:02 Upper respiratory infection 36075233 J06.9 Low back pain 587260387 M54.5 Has done PT in past approx 1 year ago HX lumbar back surgery 2004 [id number] Ziyad Mario [address] [facility] [place] [address] 01/30/2019 08:36:38 02/02/2019 09:37:45 Pain of right elbow joint 8106284079 8811298 M25.521 Adult heal th examination 267424176 Z00.00 [id number] MD Fabiano Gallo 14 IM [address] [facility] [place] [address] 02/23/2019 14:16:31 02/27/2019 12:09:02 Pain in left foot 1134532695 08705 M79.672 Health Concerns Section Related Observation LastModified by Organization Detai ls LastModified Time None Recorded Concern Status LastModified by Organization Details LastModified Time None Recorded Advance Directives Directive None Recorded Payers Encounter Date Sequence Insurance Name Policy Number Policy Paulino Covered Member ID Pualino Member ID Guarantor Name 06/08/2018 1 [employer] [id number] Donnie Mugge [id number] Donnie Mugge 07/10/2018 1 [employer] [id number] Donnie Mugge [id number] Donnie Mugge 08/15/2018 1 [employer] [id number] Donnie Mugge [id number] Donnie Mugge 01/30/2019 1 [employer] [id number] Donnie Mugge [id number] Donnie Mugge 02/23/2019 1 [employer] [id number] Donnie Mugge [id number] Donnie Mugge Notes Date Note Type Note Provider Name and Address Organization Details Recorded Time 06/08/2018 text/html Generic HPI TemplateReported bypatient.Notes:C/o dry NPC with occ SOB Notes wheezing when lays down at night X 1 week ALFONSO Mcclain [facility] 06/08/2018 11:24:19 07/10/2018 text/html Generic HPI TemplateReported bypatient.Notes:Here for routine f/u States he is doing good. C/o itchy rash to left forearm ALFONSO Mcclain [facility] 07/10/2018 09:49:20 08/15/2018 text/html Generic HPI TemplateReported bypatient.Notes:Cont to c/o low back pain with history back surgeryUpper Respiratory SymptomsReported bypatient.Location:hea d Quality:congested Associated Symptoms:no sputum production; no fever; no sore throat Ziyad walsh [place] - [facility] 08/16/2018 15:34:16 01/30/2019 text/html Here for annual visit C/o right elbow pain which is getting worse Ziyad walsh [place] [facility] 01/30/2019 14:00:30 02/23/2019 text/html Pt presents with continued pain at left foot since injury. Akhil Gil MD Attn: Accounting,[address] [place], [address], [facility] - [facility] 02/26/2019 18:06:08
--- OUTSIDE RECORDS SUMMARY | 2024-03-21 16:17 | XMS_ITS ---
Author Organization 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
== END 2024-03-21 15:32 | disposition home or self-care (01) ==
LOC: ANHBWCIMG 15:33
PROVIDERS: PCP Nurse Practitioner Family; Visit Provider Nurse Practitioner Family
DX: M79.601 Pain in right arm (principal)
CPT/HCPCS: 73030; 73060